=== PATIENT | male | born 1965 | race Caucasian/White ===

== ENCOUNTER 2017-06-30 14:30 | Inpatient (IN) | payer BC ==
[2017-06-30] MEDS ORDERED: HEPARIN SOD (PORCINE) 1,000 UNIT/ML 10 ML VIAL IV ONE (15:25)
--- NOTE | 2017-06-30 15:30 | ER Document Report ---
ED General - General Chief Complaint: Leg Swelling Stated Complaint: LEG PAIN Time Seen by Provider: 06/30/17 15:21 Mode of Arrival: Ambulatory Information source: Patient Notes: This is a 51-year-old man with a history of hypertension and Graves' disease who presents to the emergency room with left lower extremity pain from groin to the knee posteriorly. Patient states he has had symptoms for the past 2 days. Patient received an outpatient ultrasound at the hospital today which showed an extensive DVT. Patient denies any chest pain. He denies any significant shortness of breath. Patient has 2 brothers without any history of DVT. 1 of the patient's brothers recently of leukemia. No known family history of DVT. Patient's states that the patient has been taking multiple car rides to [place] and [facility] because of her medical condition. Medications: Lisinopril, metoprolol, Augmentin, Allergies: None (intolerance to Percocet). TRAVEL OUTSIDE OF THE [place] IN LAST 30 DAYS: No - HPI Onset: Last week Onset/Duration: Gradual Quality of pain: Dull Severity: Moderate Pain Level: 3 Associated symptoms: denies: Chest pain, Fever, Shortness of breath Exacerbated by: Denies Relieved by: Denies Similar symptoms previously: No Recently seen / treated by doctor: No - Related Data Allergies/Adverse Reactions: acetaminophen [From Percocet] Adverse Reaction (Verified 06/30/17 14:31) oxycodone [From Percocet] Adverse Reaction (Verified 06/30/17 14:31) Past Medical History - General Information source: Patient - Social History Smoking Status: Never Smoker Cigarette use (# per day): No Chew tobacco use (# tins/day): No Frequency of alcohol use: Rare Drug Abuse: None Lives with: Family Family History: None Patient has suicidal ideation: No Patient has homicidal ideation: No - Past Medical History Cardiac Medical History: Reports: Hx Hypertension Pulmonary Medical History: Reports: None EENT Medical History: Reports: None Neurological Medical History: Reports: None Endocrine Medical History: Reports: Hx Hyperthyroidism Renal/ Medical History: Reports: None. Denies: Hx Peritoneal Dialysis Malignancy Medical History: Reports None GI Medical History: Reports: None Musculoskeltal Medical History: Reports None Skin Medical History: Reports None Psychiatric Medical History: Reports: None Traumatic Medical History: Reports: None Infectious Medical History: Reports: None Past Surgical History: Reports: Hx Orthopedic Surgery - 2016 Review of Systems - Review of Systems Constitutional: denies: Chills, Fever EENT: No symptoms reported Cardiovascular: No symptoms reported Respiratory: See HPI Gastrointestinal: No symptoms reported Genitourinary: No symptoms reported Male Genitourinary: No symptoms reported Musculoskeletal: See HPI Skin: No symptoms reported Hematologic/Lymphatic: No symptoms reported Neurological/Psychological: No symptoms reported Physical Exam - Vital signs Vitals: Temp Pulse Resp BP Pulse Ox 98.2 F 102 H 18 126/78 H 97 06/30/17 14:41 06/30/17 14:41 06/30/17 14:41 06/30/17 14:41 06/30/17 14:41 Notes: Physical exam: GENERAL: 51-year-old man, no acute distress HEAD: Atraumatic, normocephalic. EYES: Pupils equal round and reactive to light, extraocular movements intact, sclera anicteric, conjunctiva are normal. ENT: TMs normal, nares patent, oropharynx clear without exudates. Moist mucous membranes. NECK: Normal range of motion, supple without obvious mass or JVD. LUNGS: Breath sounds clear to auscultation bilaterally and equal. No wheezes rales or rhonchi. HEART: Regular rate and rhythm without murmurs, rubs or gallops. ABDOMEN: Soft, normoactive bowel sounds. No tenderness to palpation. No guarding, no rebound. No masses appreciated. EXTREMITIES: Tenderness to the left lower extremity from the groin to the popliteal region. Patient does have bilateral dorsal pedal pulses with good cap refill. NEUROLOGICAL: Cranial nerves II through XII grossly intact. Normal speech, moving all extremities. PSYCH: Normal mood, normal affect. SKIN: Warm, Dry, normal turgor, no rashes or lesions noted. Course - Re-evaluation Re-evalutation: 06/30/17 18:44 I discussed the results of the ultrasound with Dr. Kya Johnson: Extensive DVT which goes from the popliteal to the femoral vein. CTA of the chest, abdomen and pelvis was performed. There is bilateral PEs. There is no evidence of a saddle embolus. There is no evidence that the distal DVT extends into the iliofemoral VEIN. The patient is continued on IV heparin. I had spoken to Dr. Mccray (vascular surgery) at [facility] to see if he is a candidate for catheter derived lytics. Based upon the patient's labs, stable vital signs, and x-ray reports, Dr. Mccray had recommended continued IV heparin. He did recommend discussing the case with the dry cleaning machine operator helper. The films were pushed to [facility]. I did discuss the case with the dry cleaning machine operator helper at [facility] (Dr West) who agreed with Dr. Mccray (primarily IV heparin at this time). I discussed case with Dr. Parry who will admit patient to the [facility] with continued IV heparin. 06/30/17 18:51 - Vital Signs Vital signs: Temp Pulse Resp BP Pulse Ox 98.8 F 90 22 H 140/86 H 98 06/30/17 19:46 06/30/17 19:46 06/30/17 19:46 06/30/17 19:46 06/30/17 19:46 - Laboratory Result Diagrams: 06/30/17 21:50 06/30/17 15:35 Laboratory results interpreted by me: 06/30/17 06/30/17 15:35 15:35 WBC 12.2 H RDW 14.5 H Lymphocytes % 12.1 L Absolute Neutrophils 9.5 H Glucose 125 H Creatine Kinase 42 L - Diagnostic Test Radiology reviewed: Image reviewed, Reports reviewed - CTA shows bilateral pulmonary emboli, lower extremity Doppler shows left-sided DVT from the femoral to the popliteal - EKG Interpretation by Me Rate: Normal - EKG shows normal sinus rhythm with a ventricular rate of 94, left axis deviation, poor R-wave progression, no acute ST-T wave changes Critical Care Note - Critical Care Note Total time excluding time spent on procedures (mins): 60 Discharge - Discharge Clinical Impression: Bilateral pulmonary emboli, Left lower extremity DVT Condition: Stable Disposition: ADMITTED INPATIENT Admitting Provider: Hospitalist - Dr. Steinberg Unit Admitted: [facility]
[2017-06-30 15:46] LABS: ABSOLUTE BASOPHILS # (AUTO) 0.1 10^3/uL (0.0-0.2); ABSOLUTE EOSINOPHILS # (AUTO) 0.2 10^3/uL (0.0-0.6); ABSOLUTE LYMPHOCYTES (AUTO) 1.5 10^3/uL (0.5-4.7); ABSOLUTE NEUT (AUTO) 9.5 10^3/uL (1.7-8.2); BASOPHILS % (AUTO) 0.7 % (0-2); EOSINOPHILS % (AUTO) 1.2 % (0-6); HEMATOCRIT 46.4 % (37.9-51.0); HEMOGLOBIN 15.9 g/dL (13.5-17.0); LYMPHOCYTES % (AUTO) 12.1 % (13-45); MEAN CORPUSCULAR HEMOGLOBIN 29.5 pg (27.0-33.4); MEAN CORPUSCULAR HGB CONC 34.2 g/dL (32.0-36.0); MEAN CORPUSCULAR VOLUME 86 fl (80-97); MONOCYTES % (AUTO) 8.5 % (3-13); PLATELET COUNT 227 10^3/uL (150-450); RED BLOOD COUNT 5.38 10^6/uL (4.35-5.55); RED CELL DISTRIBUTION WIDTH 14.5 % (11.5-14.0); SEGMENTED NEUTROPHILS % (AUTO) 77.5 % (42-78); TOTAL CELLS COUNTED % (AUTO) 100 %; WHITE BLOOD COUNT 12.2 10^3/uL (4.0-10.5)
[2017-06-30 16:09] LABS: ALANINE AMINOTRANSFERASE 34 U/L (21-72); ALBUMIN 4.6 g/dL (3.5-5.0); ALKALINE PHOSPHATASE 112 U/L (38-126); ANION GAP 11 (5-19); ASPARTATE AMINO TRANSFERASE 33 U/L (17-59); BILIRUBIN,DIRECT 0.3 mg/dL (0.0-0.4); BILIRUBIN,TOTAL 0.5 mg/dL (0.2-1.3); BLOOD UREA NITROGEN 16 mg/dL (7-20); CARBON DIOXIDE 27 mmol/L (22-30); CHLORIDE 102 mmol/L (98-107); CREATINE KINASE 42 U/L (55-170); GLUCOSE 125 mg/dL (75-110); POTASSIUM 4.4 mmol/L (3.6-5.0); SODIUM 140.3 mmol/L (137-145); TOTAL PROTEIN 7.9 g/dL (6.3-8.2)
[2017-06-30] MEDS: HEPARIN SODIUM,PORCINE/D5W 25,000 UNIT/250 ML RTUINJ IV PRN (16:20)
[2017-06-30 16:21] LABS: CREATINE KINASE MB 0.29 ng/mL (<4.55)
[2017-06-30 16:23] LABS: TROPONIN I < 0.012 ng/mL
--- NOTE | 2017-06-30 17:29 | RADIOLOGY REPORT (SQ) ---
EXAM DESCRIPTION: CTA CHEST; CTA ABDOMEN; CTA PELVIS COMPLETED DATE/TIME: 06/30/2017 5:06 pm REASON FOR STUDY: extensive DVT fem to pop on left COMPARISON: None. CONTRAST TYPE AND DOSE: contrast/concentration: Isovue 370.00 mg/ml; Total Contrast Delivered: 100.0 ml; Total Saline Delivered: 55.1 ml RENAL FUNCTION: Creatinine 1.1 TECHNIQUE: CT scan of the chest performed using helical scanning technique with dynamic intravenous contrast injection. Images reviewed with lung, soft tissue and bone windows. Reconstructed coronal a nd sagittal MPR images reviewed of the aorta and pulmonary arteries. All images stored on PACS. CT scan of the abdomen and pelvis performed with intravenous contrastusing helical scanning technique with dynamic intravenous contrast injection. Images reviewed with lung, soft tissue and bone window s. Reconstructed coronal and sagittal MPR images reviewed. Maximum intensity projected images of th e abdominal aorta were generated. Delayed images for evaluation of the urinary system also acquired and evaluated. All images stored on PACS. All CT scanners at this facility use dose modulation, iterative reconstruction, and/or weight based d osing when appropriate to reduce radiation dose to as low as reasonably achievable (ALARA). [facility]: Dose Right [facility]: CareDose [facility]: Dose Right [facility]: Teradose 4D [facility]: [employer] Technologies RADIATION DOSE: CT Rad equipment meets quality standard of care and radiation dose reduction techniq ues were employed. CTDIvol: 11.3 - 22.4 mGy. DLP: 2698 mGy-cm. . LIMITATIONS: None. FINDINGS: CHEST: LUNGS AND PLEURA: No opacities, nodules, masses. No pneumothorax. No effusions. PULMONARY ARTERIES: There is a pulmonary embolus in the distal right main pulmonary artery extending into the right middle and lower lobe segmental pulmonary arteries, nearly occlusive. On the left side, a moderate-sized distal left pulmonary artery embolus is present with scattered emb jong to the left upper lobe and left lower lobe. HILAR AND MEDIASTINAL STRUCTURES: No identified masses or abnormal nodes. HEART AND VASCULAR STRUCTURES: No aneurysm or dissection. No pericardial effusion. HARDWARE: None. THYROID AND OTHER SOFT TISSUES: No masses. No adenopathy. BONES: No significant finding. OTHER: Small hiatal hernia ABDOMEN AND PELVIS: LIVER: Normal size. No masses. No dilated ducts. SPLEEN: Normal size. No focal lesions. PANCREAS: No masses. No significant calcifications. No adjacent inflammation or peripancreatic fluid collections. Pancreatic duct not dilated. GALLBLADDER: No identified stones by CT criteria. No inflammatory changes to suggest cholecystitis. ADRENAL GLANDS: No significant masses or asymmetry. RIGHT KIDNEY AND URETER: No solid masses. No significant calcification. No hydronephrosis or hydroure ter. LEFT KIDNEY AND URETER: No solid masses. No significant calcification. No hydronephrosis or hydrouret er. AORTA AND VESSELS: No aneurysm. No dissection. Renal arteries, SMA, celiac without stenosis. RETROPERITONEUM: No retroperitoneal adenopathy, hemorrhage or masses. BOWEL AND PERITONEAL CAVITY: No masses or inflammatory changes. No free fluid or peritoneal masses. APPENDIX: Not identified ABDOMINAL WALL: No masses. No hernias. PELVIS: No mass or free fluid. Normal bladder. BONES: No significant or acute findings. OTHER: No other significant finding. IMPRESSION: Bilateral pulmonary emboli right greater than left No CT angio evidence of thoracic or abdominal aortic dissection or aneurysm. COMMENT: Pertinent findings on the imaging study reported as a CRITICAL RESULT to JOHANNA MOMIN MD at17:20 on 06/30/2017. Category of Critical Result: Acute bilateral pulmonary emboli TECHNICAL DOCUMENTATION: JOB ID: [id number] Quality ID # [id number]: Final reports with documentation of one or more dose reduction techniques (e.g., Au tomated exposure control, adjustment of the mA and/or kV according to patient size, use of iterative reconstruction technique) 2010 [employer]- All Rights Reserved
[2017-06-30] MEDS ORDERED: ONDANSETRON HCL INJ/PF 4 MG/2 ML SDV IV ONE (18:01)
[2017-06-30] MEDS ORDERED: HYDROMORPHONE HCL INJ/PF 2 MG/ML AMPULE IV ONE (18:10)
[2017-06-30] MEDS ORDERED: HEPARIN SOD (PORCINE) 1,000 UNIT/ML 10 ML VIAL IV PRN (18:26)
[2017-06-30] MEDS ORDERED: MAGNESIUM HYDROXIDE SUSP 30 ML UDCUP PO PRN (19:43)
[2017-06-30 20:58] LABS: INTERNATIONAL RATION (INR) 0.92; PROTHROMBIN TIME 13.1 SEC (11.4-15.4)
[2017-06-30] MEDS ORDERED: HYDROMORPHONE HCL 2 MG TABLET PO PRN (21:16)
[2017-06-30] MEDS ORDERED: HYDROMORPHONE HCL 2 MG TABLET PO ONE ×2 (21:16→23:45)
--- NOTE | 2017-06-30 21:55 | PDOC H&P ---
History of Present Illness Admission Date/PCP: 06/30/17 18:39 EMILIA GREGORY Patient complains of: Left leg pain and shortness of breath. History of Present Illness: DOMINIQUE LEWIS is a 51 year old male with a history of hypertension presenting with complaint of shortness of breath and left lower extremity swelling and pain. Patient states on Monday he was bite by a spider on his right arm. Patient thought that the swelling that occurred in his legs was due to a spider bite. Patient states he has swelling in both legs however the left leg was hurting him more. Patient states he woke up this morning and could not walk. Patient also noted that he has been feeling short of breath with walking. Patient states that he has been taking [address] [facility] a few times a week. Patient was found to have bilateral PE and a DVT in the left lower extremity. Patient is satting well on room air. Patient was started on a heparin GTT in the ED. Hospitalist was called to admit patient for PE and DVT. Past Medical History Cardiac Medical History: Reports: Hypertension Pulmonary Medical History: Reports: None EENT Medical History: Reports: None Neurological Medical History: Reports: None Endocrine Medical History: Reports: Hyperthyroidism Renal/ Medical History: Reports: None Malignancy Medical History: Reports: None GI Medical History: Reports: None Musculoskeltal Medical History: Reports: None Skin Medical History: Reports: None Psychiatric Medical History: Reports: None Traumatic Medical History: Reports: None Infectious Medical History: Reports: None Past Surgical History Past Surgical History: Reports: Orthopedic Surgery - 2016 Social History Lives with: Family Smoking Status: Never Smoker - Advance Directive Resuscitation Status: Full Code Family History Family History: Other - fibromyalgia Parental Family History Reviewed: No Children Family History Reviewed: No Sibling(s) Family History Reviewed.: No Medication/Allergy Home Medications: Cholecalciferol (Vitamin D3) [Vitamin D3 5000 unit Capsule] 4,000 units PO DAILY 06/30/17 Lisinopril 5 mg PO DAILY 06/30/17 Metoprolol Tartrate 5 mg PO DAILY 06/30/17 Allergies/Adverse Reactions: acetaminophen [From Percocet] Adverse Reaction (Verified 06/30/17 14:31) oxycodone [From Percocet] Adverse Reaction (Verified 06/30/17 14:31) Review of Systems Constitutional: PRESENT: weight gain. ABSENT: chills, fever(s), headache(s), weight loss Eyes: ABSENT: visual disturbances Ears: ABSENT: hearing changes Cardiovascular: PRESENT: edema. ABSENT: chest pain, dyspnea on exertion, orthropnea, palpitations Respiratory: PRESENT: dyspnea. ABSENT: cough, hemoptysis Gastrointestinal: ABSENT: abdominal pain, constipation, diarrhea, hematemesis, hematochezia, nausea, vomiting Genitourinary: ABSENT: dysuria, hematuria Integumentary: ABSENT: rash, wounds Neurological: ABSENT: abnormal gait, abnormal speech, confusion, dizziness, focal weakness, syncope Psychiatric: ABSENT: anxiety, depression, homidical ideation, suicidal ideation Endocrine: ABSENT: cold intolerance, heat intolerance, polydipsia, polyuria Hematologic/Lymphatic: ABSENT: easy bleeding, easy bruising Physical Exam Vital Signs: Temp Pulse Resp BP Pulse Ox 98.8 F 90 22 H 140/86 H 98 06/30/17 19:46 06/30/17 19:46 06/30/17 19:46 06/30/17 19:46 06/30/17 19:46 General appearance: PRESENT: no acute distress, well-developed, well-nourished Head exam: PRESENT: atraumatic, normocephalic Eye exam: PRESENT: conjunctiva pink, EOMI, PERRLA. ABSENT: scleral icterus Ear exam: PRESENT: normal external ear exam Mouth exam: PRESENT: moist, tongue midline Neck exam: ABSENT: carotid bruit, JVD, lymphadenopathy, thyromegaly Respiratory exam: PRESENT: clear to auscultation nash. ABSENT: rales, rhonchi, wheezes Cardiovascular exam: PRESENT: RRR, other - left lower exteremity swelling and pain and tenderness. ABSENT: diastolic murmur, rubs, systolic murmur Pulses: PRESENT: normal dorsalis pedis pul Vascular exam: PRESENT: normal capillary refill GI/Abdominal exam: PRESENT: normal bowel sounds, soft. ABSENT: distended, guarding, mass, organolmegaly, rebound, tenderness Rectal exam: PRESENT: deferred Extremities exam: PRESENT: full ROM. ABSENT: calf tenderness, clubbing, pedal edema Neurological exam: PRESENT: alert, awake, oriented to person, oriented to place , oriented to time, oriented to situation, CN II-XII grossly intact. ABSENT: motor sensory deficit Psychiatric exam: PRESENT: appropriate affect, normal mood. ABSENT: homicidal ideation, suicidal ideation Skin exam: PRESENT: dry, intact, warm. ABSENT: cyanosis, rash Results Laboratory Results: 06/30/17 06/30/17 06/30/17 15:35 15:35 15:35 WBC 12.2 H RBC 5.38 Hgb 15.9 Hct 46.4 MCV 86 MCH 29.5 MCHC 34.2 RDW 14.5 H Plt Count 227 Seg Neutrophils % 77.5 Lymphocytes % 12.1 L Monocytes % 8.5 Eosinophils % 1.2 Basophils % 0.7 Absolute Neutrophils 9.5 H Absolute Lymphocytes 1.5 Absolute Monocytes 1.0 Absolute Eosinophils 0.2 Absolute Basophils 0.1 PT 13.1 INR 0.92 Sodium 140.3 Potassium 4.4 Chloride 102 Carbon Dioxide 27 Anion Gap 11 BUN 16 Creatinine 1.14 Est GFR ( Amer) > 60 Est GFR (Non-Af Amer) > 60 Glucose 125 H Calcium 10.0 Total Bilirubin 0.5 Neonat Total Bilirubin Not Reportable AST 33 ALT 34 Alkaline Phosphatase 112 Creatine Kinase 42 L CK-MB (CK-2) Troponin I NT-Pro-B Natriuret Pep Total Protein 7.9 Albumin 4.6 06/30/17 06/30/17 15:35 15:35 WBC RBC Hgb Hct MCV MCH MCHC RDW Plt Count Seg Neutrophils % Lymphocytes % Monocytes % Eosinophils % Basophils % Absolute Neutrophils Absolute Lymphocytes Absolute Monocytes Absolute Eosinophils Absolute Basophils PT INR Sodium Potassium Chloride Carbon Dioxide Anion Gap BUN Creatinine Est GFR ( Amer) Est GFR (Non-Af Amer) Glucose Calcium Total Bilirubin Neonat Total Bilirubin AST ALT Alkaline Phosphatase Creatine Kinase CK-MB (CK-2) 0.29 Troponin I < 0.012 NT-Pro-B Natriuret Pep < 11 Total Protein Albumin Impressions: Chest/Abdomen CTA 06/30/17 16:32 IMPRESSION: Bilateral pulmonary emboli right greater than left No CT angio evidence of thoracic or abdominal aortic dissection or aneurysm. Pelvis CTA 06/30/17 16:32 IMPRESSION: Bilateral pulmonary emboli right greater than left No CT angio evidence of thoracic or abdominal aortic dissection or aneurysm. Assessment & Plan - Diagnosis (1) Pulmonary embolism Qualifiers: Chronicity: acute Is this a current diagnosis for this admission?: Yes Plan: With bilateral PE. Most likely secondary to the DVTs patient developed on long car rides back and forth to [facility] twice a week with his for cancer treatment. Currently on heparin GTT. Patient is interested in either Eliquis or Xarelto for anticoagulation on discharge. Patient without hypoxia. Patient denies any pleuritic chest pain. Patient does not appear to have heavy clot burden as his troponin is not elevated and BNP <11. Will check echo. (2) DVT (deep venous thrombosis) Qualifiers: DVT location: lower extremity Laterality: left Is this a current diagnosis for this admission?: Yes Plan: Patient with DVT in the left femoral vein to popliteal vein. As previously stated this is due to 6 Hour Round Trip to [facility]. Patient is doing this about twice a week. Patient currently on heparin GTT. Patient is on as needed pain medication as the area is swollen and tender. Patient interested in either Eliquis or Xarelto for 4-6 months of treatment. (3) Hypertension Qualifiers: Hypertension type: essential hypertension Qualified Code(s): I10 - Essential (primary) hypertension Is this a current diagnosis for this admission?: Yes Plan: Continue home medications. (4) Fatigue Is this a current diagnosis for this admission?: Yes Plan: Complains of feeling fatigued over the last several months. However this could be due to his weight gain. Patient has gone from 187-233 over the last year. Will check thyroid studies, B12, folate, thiamine, vitamin D, hemoglobin A1c. Patient does not follow up with the regular doctor and should probably do so. (5) Spider bite Is this a current diagnosis for this admission?: Yes Plan: Patient claims to have been bitten by a spider. There is a small vanessa on his right forearm however if this was a poisonous spider patient would have been extremely ill considering that this happened on Monday and it is now Monday. Continue to monitor. - Time Time Spent: 30 to 50 Minutes Anticipated discharge: Home Within: within 48 hours - Inpatient Certification Medical Necessity: Need for Pain Control - Patient on IV heparin., Other - Patient
[2017-06-30 21:58] LABS: ABSOLUTE BASOPHILS # (AUTO) 0.1 10^3/uL (0.0-0.2); ABSOLUTE EOSINOPHILS # (AUTO) 0.2 10^3/uL (0.0-0.6); ABSOLUTE LYMPHOCYTES (AUTO) 1.6 10^3/uL (0.5-4.7); ABSOLUTE MONOCYTES (AUTO) 1.2 10^3/uL (0.1-1.4); ABSOLUTE NEUT (AUTO) 10.1 10^3/uL (1.7-8.2); BASOPHILS % (AUTO) 0.4 % (0-2); EOSINOPHILS % (AUTO) 1.1 % (0-6); HEMATOCRIT 46.4 % (37.9-51.0); HEMOGLOBIN 15.8 g/dL (13.5-17.0); LYMPHOCYTES % (AUTO) 12.5 % (13-45); MEAN CORPUSCULAR HEMOGLOBIN 29.5 pg (27.0-33.4); MEAN CORPUSCULAR HGB CONC 34.1 g/dL (32.0-36.0); MEAN CORPUSCULAR VOLUME 87 fl (80-97); MONOCYTES % (AUTO) 9.1 % (3-13); PLATELET COUNT 217 10^3/uL (150-450); RED BLOOD COUNT 5.37 10^6/uL (4.35-5.55); RED CELL DISTRIBUTION WIDTH 14.3 % (11.5-14.0); SEGMENTED NEUTROPHILS % (AUTO) 76.9 % (42-78); TOTAL CELLS COUNTED % (AUTO) 100 %; WHITE BLOOD COUNT 13.2 10^3/uL (4.0-10.5)
[2017-06-30 22:05] LABS: INTERNATIONAL RATION (INR) 0.94; PROTHROMBIN TIME 13.3 SEC (11.4-15.4)
--- NOTE | 2017-06-30 22:10 | EKG REPORT ---
SEVERITY:- BORDERLINE ECG - SINUS RHYTHM BORDERLINE LEFT AXIS DEVIATION CONSIDER ANTERIOR INFARCT : Confirmed by: Jose Cadena 30-Jun-2017 22:09:56
[2017-06-30] MEDS ORDERED: METHIMAZOLE 5 MG TABLET PO ONE (23:00)
[2017-06-30] MEDS ORDERED: HYDROXYZINE HCL 10 MG TABLET PO PRN (23:23)
[2017-06-30] MEDS ORDERED: CHOLECALCIFEROL (D3) 1,000 UNIT TABLET PO ONE (23:45)
[2017-06-30] MEDS ORDERED: HYDROXYZINE HCL 10 MG TABLET PO ONE (23:45)
[2017-06-30] MEDS ORDERED: AMOXICILLIN TR/POT CLAVULANATE 500-125 MG TAB PO ONE (23:45)
[2017-06-30] MEDS ORDERED: LISINOPRIL 10 MG TABLET PO ONE (23:45)
[2017-07-01] MEDS: HYDROMORPHONE HCL 2 MG TABLET PO PRN ×4 (00:05→23:38)
[2017-07-01] MEDS ORDERED: BACLOFEN 10 MG TABLET PO ONE (01:00)
[2017-07-01 01:27] LABS: INTERNATIONAL RATION (INR) 0.96
[2017-07-01 01:34] LABS: PROTHROMBIN TIME 13.5 SEC (11.4-15.4)
[2017-07-01 01:35] LABS: PARTIAL THROMBOPLASTIN TIME 85.6 SEC (23.5-35.8)
[2017-07-01] MEDS: AMOXICILLIN TR/POT CLAVULANATE 500-125 MG TAB PO SCH ×3 (05:57→21:57)
[2017-07-01] MEDS: LANSOPRAZOLE 30 MG TAB.RAP.DR PO SCH (05:57)
[2017-07-01] MEDS: HEPARIN SODIUM,PORCINE/D5W 25,000 UNIT/250 ML RTUINJ IV PRN (06:42)
[2017-07-01 06:48] LABS: INTERNATIONAL RATION (INR) 0.94; PROTHROMBIN TIME 13.3 SEC (11.4-15.4); URIC ACID 6.5 mg/dL (3.5-8.5)
[2017-07-01 06:50] LABS: PARTIAL THROMBOPLASTIN TIME 101.7 SEC (23.5-35.8)
[2017-07-01 07:08] LABS: FREE T3 3.57 pg/mL (2.77-5.27); FREE T4 (FREE THYROXINE) 1.12 ng/dL (0.78-2.19)
[2017-07-01 07:22] LABS: THYROID STIMULATING HORMONE 1.45 uIU/mL (0.47-4.68)
[2017-07-01 08:03] LABS: FOLATE 5.2 ng/mL (>2.76)
[2017-07-01] MEDS: DOCUSATE SODIUM 100 MG CAPSULE PO SCH (09:49)
[2017-07-01] MEDS: BACLOFEN 10 MG TABLET PO SCH ×2 (09:49→17:45)
[2017-07-01] MEDS ORDERED: METOPROLOL TARTRATE 25 MG TABLET PO SCH ×2 (10:00)
[2017-07-01] MEDS ORDERED: CHOLECALCIFEROL PO SCH (10:00)
[2017-07-01] MEDS ORDERED: LISINOPRIL 5 MG TABLET PO SCH (10:00)
[2017-07-01] MEDS ORDERED: CHOLECALCIFEROL (D3) 1,000 UNIT TABLET PO SCH (10:00)
[2017-07-01] MEDS ORDERED: [UNRECOGNIZED DRUG - OTHER] PO SCH (10:00)
[2017-07-01] MEDS ORDERED: ENOXAPARIN SODIUM INJ 100 MG/1 ML DISP.SYRIN SUBCUT ONE (15:30)
--- NOTE | 2017-07-01 16:10 | PDOC PROGRESS REPORT ---
Subjective Progress Note for:: 07/01/17 Subjective:: 51-year-old gentleman with a past history of hypertension and Graves' disease presented to the emergency room on June 30 with sudden onset shortness of breath and left lower extremity swelling and pain. 2 days ago he was bitten by a spider in his right arm. He then developed bilateral leg swelling which he attributed to the spider bite however the left leg was hurting him more he woke up on the day of admission in the morning and was unable to walk and was also feeling short of breath. The patient has been driving to [place] a few times every week. In the emergency room he was found to have deep vein thrombosis of the left lower extremity and bilateral pulmonary emboli and was started on a heparin drip in the emergency room. Echo cardiogram has been ordered. No complaints at present. Reason For Visit: PE AND DVT Physical Exam Vital Signs: Temp Pulse Resp BP Pulse Ox 98.0 F 78 20 132/78 H 97 07/01/17 07:22 07/01/17 07:22 07/01/17 07:22 07/01/17 07:22 07/01/17 07:22 Intake & Output 06/30/17 07/01/17 07/02/17 06:59 06:59 06:59 Intake Total 558 Balance 558 Weight 102.8 kg 102.2 kg Additional comments: Middle-aged gentleman sitting up in bed eating his lunch not in acute distress Lungs: Clear to auscultation bilaterally normal respiratory effort Cardiac: S1-S2 regular no murmurs heard no peripheral edema no cyanosis no thrills palpable. Abdomen: Soft, no focal tenderness normal bowel sounds Skin: Warm and dry next Results Laboratory Results: 06/30/17 21:50 06/30/17 07/01/17 07/01/17 21:50 06:19 06:19 WBC 13.2 H RBC 5.37 Hgb 15.8 Hct 46.4 MCV 87 MCH 29.5 MCHC 34.1 RDW 14.3 H Plt Count 217 Seg Neutrophils % 76.9 Lymphocytes % 12.5 L Monocytes % 9.1 Eosinophils % 1.1 Basophils % 0.4 Absolute Neutrophils 10.1 H Absolute Lymphocytes 1.6 Absolute Monocytes 1.2 Absolute Eosinophils 0.2 Absolute Basophils 0.1 Uric Acid 6.5 Vitamin B12 323.0 Folate 5.20 TSH 1.45 Free T4 1.12 Free T3 pg/mL 3.57 Impressions: Chest/Abdomen CTA 06/30/17 16:32 IMPRESSION: Bilateral pulmonary emboli right greater than left No CT angio evidence of thoracic or abdominal aortic dissection or aneurysm. Pelvis CTA 06/30/17 16:32 IMPRESSION: Bilateral pulmonary emboli right greater than left No CT angio evidence of thoracic or abdominal aortic dissection or aneurysm. Assessment & Plan - Diagnosis (1) Pulmonary embolism Qualifiers: Chronicity: acute Is this a current diagnosis for this admission?: Yes Plan: Anticoagulation. Echocardiogram ordered. Heparin drip switched to Lovenox per (2) DVT (deep venous thrombosis) Qualifiers: DVT location: lower extremity Laterality: left Is this a current diagnosis for this admission?: Yes Plan: Will stop heparin drip and start him on Lovenox followed by an oral anticoagulant (3) Graves disease Is this a current diagnosis for this admission?: Yes Plan: TSH is normal. Continue methimazole (4) Hypertension Qualifiers: Hypertension type: essential hypertension Qualified Code(s): I10 - Essential (primary) hypertension Is this a current diagnosis for this admission?: Yes Plan: On lisinopril (5) Spider bite Is this a current diagnosis for this admission?: Yes Plan: He was started on Augmentin on June 29. Today is day 3. It will be continued for a total of 7 days. - Time Time Spent with patient: 35 or more minutes
[2017-07-01] MEDS ORDERED: ENOXAPARIN SODIUM INJ 100 MG/1 ML DISP.SYRIN SUBCUT SCH (18:00)
[2017-07-01] MEDS: LISINOPRIL 10 MG TABLET PO SCH (21:57)
[2017-07-01] MEDS: CHOLECALCIFEROL (D3) 1,000 UNIT TABLET PO SCH (21:57)
[2017-07-01] MEDS: ENOXAPARIN SODIUM INJ 100 MG/1 ML DISP.SYRIN SUBCUT SCH (21:57)
[2017-07-01] MEDS: METHIMAZOLE 5 MG TABLET PO SCH (21:57)
[2017-07-02] MEDS: ONDANSETRON HCL INJ/PF 4 MG/2 ML SDV IV PRN ×2 (00:34→05:40)
[2017-07-02] MEDS: LANSOPRAZOLE 30 MG TAB.RAP.DR PO SCH (05:37)
[2017-07-02] MEDS: AMOXICILLIN TR/POT CLAVULANATE 500-125 MG TAB PO SCH ×3 (05:38→21:34)
[2017-07-02] MEDS: HYDROMORPHONE HCL 2 MG TABLET PO PRN ×2 (05:40→12:43)
[2017-07-02] MEDS: DOCUSATE SODIUM 100 MG CAPSULE PO SCH (09:08)
[2017-07-02] MEDS: ENOXAPARIN SODIUM INJ 100 MG/1 ML DISP.SYRIN SUBCUT SCH ×2 (09:08→21:34)
[2017-07-02] MEDS: BACLOFEN 10 MG TABLET PO SCH ×2 (09:08→18:43)
--- NOTE | 2017-07-02 09:09 | EKG REPORT ---
SEVERITY:- BORDERLINE ECG - SINUS RHYTHM BORDERLINE LEFT AXIS DEVIATION CONSIDER ANTERIOR INFARCT : Confirmed by: Jose Cadena 02-Jul-2017 09:09:42
--- NOTE | 2017-07-02 11:15 | PDOC PROGRESS REPORT ---
Subjective Progress Note for:: 07/02/17 Subjective:: 51-year-old gentleman with a past history of hypertension and Graves' disease presented to the emergency room on June 30 with sudden onset shortness of breath and left lower extremity swelling and pain. 2 days ago he was bitten by a spider in his right arm. He then developed bilateral leg swelling which he attributed to the spider bite however the left leg was hurting him more he woke up on the day of admission in the morning and was unable to walk and was also feeling short of breath. The patient has been driving to [employer] a few times every week. In the emergency room he was found to have deep vein thrombosis of the left lower extremity and bilateral pulmonary emboli and was started on a heparin drip in the emergency room. Echo cardiogram has been ordered. No complaints at present. Echocardiogram pending. Reason For Visit: PE AND DVT Physical Exam Vital Signs: Temp Pulse Resp BP Pulse Ox 98.3 F 77 18 104/59 L 95 07/02/17 07:39 07/02/17 07:39 07/02/17 07:39 07/02/17 07:39 07/02/17 07:39 Intake & Output 07/01/17 07/02/17 07/03/17 06:59 06:59 06:59 Intake Total 558 232 Output Total 0 Balance 558 232 Weight 102.8 kg 103.4 kg Additional comments: Middle-aged gentleman sitting up in bed eating his lunch not in acute distress Lungs: Clear to auscultation bilaterally normal respiratory effort Cardiac: S1-S2 regular no murmurs heard no peripheral edema no cyanosis no thrills palpable. Abdomen: Soft, no focal tenderness normal bowel sounds Skin: Warm and dry, small 0.5cm papular erythematous lesion on R forearm- well healed, no discharge or purulence Results Laboratory Results: 06/30/17 21:50 Impressions: Chest/Abdomen CTA 06/30/17 16:32 IMPRESSION: Bilateral pulmonary emboli right greater than left No CT angio evidence of thoracic or abdominal aortic dissection or aneurysm. Pelvis CTA 06/30/17 16:32 IMPRESSION: Bilateral pulmonary emboli right greater than left No CT angio evidence of thoracic or abdominal aortic dissection or aneurysm. Assessment & Plan - Diagnosis (1) Pulmonary embolism Qualifiers: Chronicity: acute Is this a current diagnosis for this admission?: Yes Plan: Continue anticoagulation. Echocardiogram ordered. Heparin drip switched to Lovenox. (2) DVT (deep venous thrombosis) Qualifiers: DVT location: lower extremity Laterality: left Is this a current diagnosis for this admission?: Yes Plan: Lovenox followed by an oral anticoagulant (3) Graves disease Is this a current diagnosis for this admission?: Yes Plan: TSH is normal. Continue methimazole. Outpatient endocrinology follow up (4) Hypertension Qualifiers: Hypertension type: essential hypertension Qualified Code(s): I10 - Essential (primary) hypertension Is this a current diagnosis for this admission?: Yes Plan: On lisinopril (5) Spider bite Is this a current diagnosis for this admission?: Yes Plan: He was started on Augmentin on June 29. Today is day 4. It will be continued for a total of 5 days. - Time Time Spent with patient: 25-34 minutes
[2017-07-02] MEDS ORDERED: BUTALB/ACETAMINOPHEN/CAFFEINE 1 TAB EACH PO ONE (16:00)
[2017-07-02] MEDS: METHIMAZOLE 5 MG TABLET PO SCH (21:34)
[2017-07-02] MEDS: LISINOPRIL 10 MG TABLET PO SCH (21:34)
[2017-07-02] MEDS: CHOLECALCIFEROL (D3) 1,000 UNIT TABLET PO SCH (21:35)
[2017-07-03] MEDS: AMOXICILLIN TR/POT CLAVULANATE 500-125 MG TAB PO SCH ×2 (05:33→14:49)
[2017-07-03] MEDS: LANSOPRAZOLE 30 MG TAB.RAP.DR PO SCH (05:33)
[2017-07-03 06:38] LABS: HEMATOCRIT 43.1 % (37.9-51.0); HEMOGLOBIN 14.6 g/dL (13.5-17.0); MEAN CORPUSCULAR HEMOGLOBIN 29.4 pg (27.0-33.4); MEAN CORPUSCULAR HGB CONC 33.9 g/dL (32.0-36.0); MEAN CORPUSCULAR VOLUME 87 fl (80-97); PLATELET COUNT 239 10^3/uL (150-450); RED BLOOD COUNT 4.95 10^6/uL (4.35-5.55); RED CELL DISTRIBUTION WIDTH 13.9 % (11.5-14.0); WHITE BLOOD COUNT 9.2 10^3/uL (4.0-10.5)
[2017-07-03] MEDS: HYDROMORPHONE HCL 2 MG TABLET PO PRN (08:06)
[2017-07-03] MEDS: DOCUSATE SODIUM 100 MG CAPSULE PO SCH (09:37)
[2017-07-03] MEDS: BACLOFEN 10 MG TABLET PO SCH (09:38)
[2017-07-03] MEDS: ENOXAPARIN SODIUM INJ 100 MG/1 ML DISP.SYRIN SUBCUT SCH (09:38)
[2017-07-03 09:40] LABS: VITAMIN B1 (THIAMINE) 204.1 nmol/L (66.5-200.0)
--- NOTE | 2017-07-03 10:16 | PDOC DISCHARGE SUMMARY ---
General - Admit/Disc Date/PCP Admission Date/Primary Care Provider: 06/30/17 18:39 EMILIA GREGORY Discharge Date: 07/03/17 - Discharge Diagnosis (1) DVT (deep venous thrombosis) Is this a current diagnosis for this admission?: Yes (2) Graves disease Is this a current diagnosis for this admission?: Yes (3) Hypertension Is this a current diagnosis for this admission?: Yes (4) Pulmonary embolism Is this a current diagnosis for this admission?: Yes (5) Spider bite Is this a current diagnosis for this admission?: Yes - Additional Information Resuscitation Status: Full Code Discharge Diet: As Tolerated Discharge Activity: Activity As Tolerated Prescriptions: Lisinopril [Prinivil 10 mg Tablet] 10 mg PO QHS #30 tablet Methimazole [Tapazole 5 mg Tablet] 5 mg PO QHS 30 Days #30 tablet Amox Tr/Potassium Clavulanate [Augmentin "500" Tablet] 1 tab PO Q8 #15 tablet Baclofen [Baclofen 10 mg Tablet] 10 mg PO BID #15 tablet Cyanocobalamin (Vitamin B-12) [Vitamin B12] 1,000 mcg PO DAILY #30 tablet Rivaroxaban [Xarelto] 20 mg PO DAILY 30 Days #30 tablet Rivaroxaban [Xarelto 15 mg Tablet] 15 mg PO BID #42 tablet Home Medications: Cholecalciferol (Vitamin D3) [Vitamin D3 5000 unit Capsule] 4,000 units PO DAILY 06/30/17 Amox Tr/Potassium Clavulanate [Augmentin "500" Tablet] 1 tab PO Q8 #15 tablet 07/03/17 Baclofen [Baclofen 10 mg Tablet] 10 mg PO BID #15 tablet 07/03/17 Cyanocobalamin (Vitamin B-12) [Vitamin B12] 1,000 mcg PO DAILY #30 tablet Lisinopril [Prinivil 10 mg Tablet] 10 mg PO QHS #30 tablet 07/03/17 Methimazole [Tapazole 5 mg Tablet] 5 mg PO QHS 30 Days #30 tablet 07/03/17 Rivaroxaban [Xarelto 15 mg Tablet] 15 mg PO BID #42 tablet 07/03/17 Rivaroxaban [Xarelto] 20 mg PO DAILY 30 Days #30 tablet 07/03/17 History of Present Illness Patient complains of: Pain left lower extremity. Spider bite History of Present Illness: DOMINIQUE LEWIS is a 51 year old male Presented to the ED complaining of pain in the left lower extremity Patient recently had a spider bite to the left arm Upon evaluation in the ED patient was diagnosed of DVT lower extremity and multiple pulmonary emboli He was subsequently admitted under hospitalist service for further care Hospital Course Hospital Course: 1 bilateral pulmonary emboli Patient was treated with Lovenox subcutaneously for 2 days. He did not have significant hypoxemia He remained in normal sinus rhythm He complained of some pleuritic chest pain Patient was switched to Xarelto at discharge 2 spider bite patient had skin lesion on the right forearm He was treated with Augmentin p.o. 3 hypertension Was controlled with lisinopril 10 mg daily 4 hyperthyroidism Patient was continued on methimazole His thyroid function was normal 4 vitamin B12 level was low at 300 Patient was discharged on vitamin B12 replacement Physical Exam Vital Signs: Temp Pulse Resp BP Pulse Ox 97.6 F 84 20 127/69 H 100 07/03/17 07:25 07/03/17 07:25 07/03/17 07:25 07/03/17 07:25 07/03/17 07:25 Intake & Output 07/02/17 07/03/17 07/04/17 00:59 00:59 00:59 Intake Total 458 486 155 Output Total 0 Balance 458 486 155 Weight 101.7 kg 103.4 kg 103.3 kg General appearance: PRESENT: no acute distress, well-developed, well-nourished Head exam: PRESENT: atraumatic, normocephalic Eye exam: PRESENT: conjunctiva pink, EOMI, PERRLA. ABSENT: scleral icterus Ear exam: PRESENT: normal external ear exam Mouth exam: PRESENT: moist, tongue midline Neck exam: ABSENT: carotid bruit, JVD, lymphadenopathy, thyromegaly Respiratory exam: PRESENT: clear to auscultation nash. ABSENT: rales, rhonchi, wheezes Cardiovascular exam: PRESENT: RRR. ABSENT: diastolic murmur, rubs, systolic murmur Pulses: PRESENT: normal dorsalis pedis pul Vascular exam: PRESENT: normal capillary refill GI/Abdominal exam: PRESENT: normal bowel sounds, soft. ABSENT: distended, guarding, mass, organolmegaly, rebound, tenderness Rectal exam: PRESENT: deferred Extremities exam: PRESENT: full ROM, other - Tender left calf mild swelling. ABSENT: calf tenderness, clubbing, pedal edema Neurological exam: PRESENT: alert, awake, oriented to person, oriented to place , oriented to time, oriented to situation, CN II-XII grossly intact. ABSENT: motor sensory deficit Psychiatric exam: PRESENT: appropriate affect, normal mood. ABSENT: homicidal ideation, suicidal ideation Skin exam: PRESENT: dry, intact, warm. ABSENT: cyanosis, rash Results Laboratory Results: 07/03/17 05:30 07/01/17 07/03/17 06:19 05:30 WBC 9.2 RBC 4.95 Hgb 14.6 Hct 43.1 MCV 87 MCH 29.4 MCHC 33.9 RDW 13.9 Plt Count 239 Vitamin B1 204.1 H Impressions: Chest/Abdomen CTA 06/30/17 16:32 IMPRESSION: Bilateral pulmonary emboli right greater than left No CT angio evidence of thoracic or abdominal aortic dissection or aneurysm. Pelvis CTA 06/30/17 16:32 IMPRESSION: Bilateral pulmonary emboli right greater than left No CT angio evidence of thoracic or abdominal aortic dissection or aneurysm. Plan Discharge Plan: Discharge patient home Follow-up with PMD and Dr. Barragan Hematology Time Spent: Greater than 30 Minutes
[2017-07-03 13:03] LABS: VITAMIN D 25-HYDROXY 19.9 ng/mL (30.0-100.0)
[2017-07-03 13:09] LABS: APPEARANCE,URINE CLEAR; BILIRUBIN,URINE NEGATIVE (NEGATIVE); COLOR,URINE YELLOW; GLUCOSE, URINE NEGATIVE (NEGATIVE); KETONES,URINE NEGATIVE (NEGATIVE); LEUKOCYTE ESTERASE,URINE NEGATIVE (NEGATIVE); NITRITE,URINE NEGATIVE (NEGATIVE); PROTEIN,URINE NEGATIVE (NEGATIVE); URINE SPECIFIC GRAVITY 1.021; UROBILINOGEN,URINE NEGATIVE mg/dL (<2.0)
[2017-07-03 16:15] VITALS: BP 110/58
--- NOTE | 2017-07-03 18:23 | XCELERA REPORT ---
[address] [address] Transthoracic Echocardiogram Report Name: DOMINIQUE LEWIS Age: 51 yrs Gender: Male : 1965 Patient Status: Inpatient Patient Location: [address] [place] [address] Study Date: 07/03/2017 03:31 PM Height: 71 in Weight: 233 lb BSA: 2.3 m2 Procedure: A complete two-dimensional transthoracic echocardiogram was performed (2D, M-mode, spectral and color flow Doppler). The study was technically adequate with some images being suboptimal in quality. Reason For Study: PE Ordering Physician: YARED JORGE Performed By: Aline Phillips Interpretation Summary The left ventricular ejection fraction is normal. Doppler measurements suggest pseudonormalized left ventricular relaxation, which is associated with grade II/IV or mild to moderate diastolic dysfunction There is borderline concentric left ventricular hypertrophy. The left ventricle is grossly normal size. Wall motion cannot be accurately commented on, but no definite regional wall motion abnormalities noted. The right ventricular systolic function is normal. The left atrial size is normal. The right atrium is normal in size There is a trace amount of mitral regurgitation There is no mitral valve stenosis. No aortic regurgitation is present. There is no aortic valve stenosis There is a trace or physiologic amount of tricuspid regurgitation Tricuspid regurgitation jet envelope not well defined to measure RV systolic pressure accurately. The aortic root is normal size. The inferior vena cava appeared normal and decreased > 50% with respiration (RAP 5-10 mmHg) There is no pericardial effusion. MMode/2D Measurements & Calculations RVDd: 2.7 cm LVIDd: 4.3 cm FS: 38.7 % Ao root diam: 2.3 cm IVSd: 0.89 cm LVIDs: 2.6 cm EDV(Teich): 82.9 ml LVPWd: 0.90 cm ESV(Teich): 25.4 ml Ao root area: 4.0 cm2 EF(Teich): 69.4 % LA dimension: 3.5 cm Doppler Measurements & Calculations MV E max adarsh: MV P1/2t max adarsh: Ao V2 max: LV V1 max P.8 cm/sec 57.3 cm/sec 143.3 cm/sec 6.3 mmHg MV A max adarsh: MV P1/2t: 64.4 msec Ao max PG: LV V1 max: 58.2 cm/sec 8.2 mmHg 125.9 cm/sec MV E/A: 0.92 MVA(P1/2t): 3.4 cm2 MV dec slope: 260.3 cm/sec2 MV dec time: 0.22 sec PA V2 max: TR max adarsh: 80.2 cm/sec 215.8 cm/sec PA max PG: TR max P.6 mmHg 2.6 mmHg Left Ventricle The left ventricle is grossly normal size. There is borderline concentric left ventricular hypertrophy. The left ventricular ejection fraction is normal. Doppler measurements suggest pseudonormalized left ventricular relaxation, which is associated with grade II/IV or mild to moderate diastolic dysfunction. Wall motion cannot be accurately commented on, but no definite regional wall motion abnormalities noted. Right Ventricle The right ventricle is grossly normal size. There is normal right ventricular wall thickness. The right ventricular systolic function is normal. Atria The right atrium is normal in size. The left atrial size is normal. Interarterial septum not well visualized and not well dopplered. Cannot comment on ASD/PFO presence. Mitral Valve The mitral valve is grossly normal. There is no mitral valve stenosis. There is a trace amount of mitral regurgitation. Aortic Valve The aortic valve is grossly normal. There is no aortic valve stenosis. No aortic regurgitation is present. Tricuspid Valve The tricuspid valve is not well visualized, but is grossly normal. There is no tricuspid stenosis. There is a trace or physiologic amount of tricuspid regurgitation. Tricuspid regurgitation jet envelope not well defined to measure RV systolic pressure accurately. Pulmonic Valve The pulmonic valve is not well visualized. Great Vessels The aortic root is normal size. The inferior vena cava appeared normal and decreased > 50% with respiration (RAP 5-10 mmHg). Effusions There is no pericardial effusion. : YARED JORGE > Jose Cadena
== END 2017-07-03 17:24 | disposition home or self-care (01) | DRG 300 ==
LOC: ER 14:30 → EH 18:39 → 3W 20:35
PROVIDERS: ADMIT Emergency Medicine; ATTEND Emergency Medicine
DX: I74.9 Embolism and thrombosis of unspecified artery (principal); I82.4Z2 Acute embolism and thrombosis of unspecified deep veins of left distal lower extremity; E05.00 Thyrotoxicosis with diffuse goiter without thyrotoxic crisis or storm; I10 Essential (primary) hypertension; S50.861A Insect bite (nonvenomous) of right forearm, initial encounter; W57.XXXA Bitten or stung by nonvenomous insect and other nonvenomous arthropods, initial encounter; E55.9 Vitamin D deficiency, unspecified; R63.5 Abnormal weight gain; Z68.31 Body mass index [BMI] 31.0-31.9, adult; Z79.899 Other long term (current) drug therapy; Z88.6 Allergy status to analgesic agent
CPT/HCPCS: 36415; 71275; 72191; 74175; 80053; 81001; 82306; 82550; 82553; 82607; 82652; 82746; 83036; 83880; 84425; 84439; 84443; 84481; 84484; 84550; 85025; 85027; 85610; 85730; 93005; 93010; 93306; 99291; J1170; J1644; J1650; J2405; J3490

== ENCOUNTER → 2017-06-30 | Outpatient (CLI) | payer BC ==
--- NOTE | 2017-06-30 16:05 | XCELERA REPORT ---
[address] [address] Lower Extremity Venous Evaluation Name: DOMINIQUE LEWIS Age: 51 yrs Gender: Male : 1965 Patient Status: Outpatient Patient Location: Study Date: 06/30/2017 01:42 PM Procedure: Color flow and duplex imaging bilaterally of the veins of the lower extremities as well as the Common Femoral veins. Reason For Study: BLE PAIN, SWELLING Ordering Physician: JEFFERSON CRUZ Performed By: Salome Tobias Right Sided Venous Evaluation Normal vessel filling wall to wall, compression and augmentation as well as Colour flow down to the infrageniculate veins. Left Sided Venous Evaluation Abnormal vessel filling , no compression or Colour flow from the Common Femoral vein to the Popliteal vein. Critical Findings Discussed with Dr Rosado in the ER. Interpretation Summary Extensive proximal DVT in the left Femoral system. Normal on right. : JEFFERSON CRUZ > Nolan Johnson
== END ==
LOC: SP 13:16
PROVIDERS: ATTEND Physician Assistant
DX: M79.662 Pain in left lower leg (principal); M79.661 Pain in right lower leg
CPT/HCPCS: 93970

== ENCOUNTER → 2017-07-10 | Outpatient (CLI) | payer BC ==
--- NOTE | 2017-07-10 19:10 | RADIOLOGY REPORT (SQ) ---
EXAM DESCRIPTION: CTA CHEST COMPLETED DATE/TIME: 07/10/2017 6:30 pm REASON FOR STUDY: DYSPNEA I26.99 OTHER PULMONARY EMBOLISM WITHOUT ACUTE COR PULMONALE COMPARISON: CT angio chest 06/30/2017 TECHNIQUE: CT scan of the chest performed using helical scanning technique with dynamic intravenous contrast injection. Images reviewed with lung, soft tissue and bone windows. Reconstructed coronal and sagittal MPR images reviewed. Additional 3 dimensional post-processing performed to develop Maximal Intensity Projection images (AK P). All images stored on PACS. All CT scanners at this facility use dose modulation, iterative reconstruction, and/or weight based d osing when appropriate to reduce radiation dose to as low as reasonably achievable (ALARA). [facility]: Dose Right [facility]: CareDose [facility]: Dose Right [facility]: Teradose 4D [facility]: Tuicool CONTRAST TYPE AND DOSE: contrast/concentration: Isovue 370.00 mg/ml; Total Contrast Delivered: 82.0 ml; Total Saline Delivered: 75.0 ml Contrast bolus optimized for the pulmonary arteries. Not diagnostic for the aorta. RENAL FUNCTION: Creatinine 1.4 RADIATION DOSE: CT Rad equipment meets quality standard of care and radiation dose reduction techniq ues were employed. CTDIvol: 16.5 - 23.3 mGy. DLP: 812 mGy-cm. . LIMITATIONS: None. FINDINGS: LUNGS AND PLEURA: No masses, infiltrates, pneumothorax. No pleural effusions, calcificati ons. AORTA AND GREAT VESSELS: No aneurysm. Contrast bolus not optimized for the aorta. HEART: No pericardial effusion. No significant coronary artery calcifications. PULMONARY ARTERIES: There is still a moderate amount of residual thrombus in the distal right main pu lmonary artery extending into the proximal right middle lobe pulmonary artery and right lower lobe se gmental pulmonary arteries. Small amount of residual clot in the right upper lobe proximal segmental pulmonary arteries. This is stable compared to 06/30/2017. There is a tiny amount of thrombus in the distal left main pulmonary artery extending into the left l ower lobe segmental pulmonary arteries. This is less prominent than on 06/30/2017. Left upper lobe pu lmonary embolus is resolved. HILAR AND MEDIASTINAL STRUCTURES: No identified masses or abnormal nodes. Small retrocardiac hiatal hernia HARDWARE: None in the chest. UPPER ABDOMEN: No significant findings. Limited exam. THYROID AND OTHER SOFT TISSUES: No masses. No adenopathy. BONES: No acute or significant finding. 3D MIPS: Confirm above findings. OTHER: Patient has been on Eliquis for 7 days. He is currently asymptomatic and in no acute distress . These findings were discussed with the patient and his , who both wanted him to go home. Bonnie ent was instructed to return to the emergency room if he has sudden onset of chest pain or sudden ons et of dyspnea. IMPRESSION: Moderate residual thrombus in the distal right main pulmonary artery extending into the proximal right upper, middle lobe and lower lobe segmental pulmonary arteries. This is stable compar ed to 06/30/2017 Small amount of thrombus in the distal left main pulmonary artery extending into the left lower lobe segmental pulmonary arteries. This is less prominent than on 06/30/2017 COMMENT: Quality ID # [id number]: Final reports with documentation of one or more dose reduction techniques (e.g., Automated exposure control, adjustment of the mA and/or kV according to patient size, use of iterative reconstruction technique) TECHNICAL DOCUMENTATION: JOB ID: [id number] [employer]- All Rights Reserved
== END ==
LOC: RAD 17:59
PROVIDERS: ATTEND Physician Assistant
DX: I26.99 Other pulmonary embolism without acute cor pulmonale (principal); R06.00 Dyspnea, unspecified; Z86.718 Personal history of other venous thrombosis and embolism
CPT/HCPCS: 71275

== ENCOUNTER → 2017-07-15 | Outpatient (CLI) | payer BC ==
--- NOTE | 2017-07-15 19:32 | RADIOLOGY REPORT (SQ) ---
EXAM DESCRIPTION: VENOUS BILATERAL LOWER COMPLETED DATE/TIME: 07/15/2017 7:19 pm REASON FOR STUDY: PAIN SWELLING H/O DVT LLE COMPARISON: 06/30/2017 TECHNIQUE: Dynamic and static merritt scale and color images acquired of both lower extremity venous sy stems. Selected spectral images acquired with additional compression and augmentation maneuvers. Imag es stored on PACS. LIMITATIONS: None. FINDINGS: RIGHT LEG COMMON FEMORAL AND FEMORAL: Normal phasicity, compression and augmentation. No visualized echogenic m aterial on merritt scale. No defects on color images. POPLITEAL: Normal compression and augmentation. No visualized echogenic material on merritt scale. No de fects on color images. CALF VESSELS: Normal compression and augmentation. No visualized echogenic material on merritt scale. No defects on color image. GSV AND SSV: Normal compression. No visualized echogenic material on merritt scale. No defects on color images. ANY DEEP VENOUS INSUFFICIENCY: Not evaluated. ANY EVIDENCE OF POPLITEAL CYST: No. OTHER: No other significant finding. LEFT LEG COMMON FEMORAL : Normal phasicity, compression and augmentation. No visualized echogenic material on merritt scale. No defects on color images. SFV and POPLITEAL: Partial noncompressibility in the left mid and distal superficial femoral vein and popliteal veins. CALF VESSELS: Normal compression and augmentation. No visualized echogenic material on merritt scale. No defects on color images. GSV : Normal compression. No visualized echogenic material on merritt scale. No defects on color images. ANY DEEP VENOUS INSUFFICIENCY: Not evaluated. ANY EVIDENCE POPLITEAL CYST: No. OTHER: Similar noncompressibility in the short saphenous vein. IMPRESSION: Similar Partial noncompressibility in the left mid and distal superficial femoral vein a nd popliteal veins. Similar short saphenous vein thrombus. No propagation is identified. TECHNICAL DOCUMENTATION: JOB ID: [id number] [place]-72 2010 [employer]- All Rights Reserved Reading location - IP/workstation name: [employer]
== END ==
LOC: SP 18:14
PROVIDERS: ATTEND Physician Assistant
DX: M79.662 Pain in left lower leg (principal); M79.661 Pain in right lower leg; M79.89 Other specified soft tissue disorders
CPT/HCPCS: 93970

== ENCOUNTER 2017-08-24 20:08 | Emergency (ER) | payer BC ==
--- NOTE | 2017-08-24 20:47 | ER Document Report ---
ED General - General Chief Complaint: Shortness Of Breath Stated Complaint: SHORTNESS OF BREATH Time Seen by Provider: 08/24/17 20:44 Mode of Arrival: Ambulatory Information source: Patient Notes: This is a 51-year-old male with a history of Graves' disease, diagnosed with bilateral pulmonary emboli in June who is currently on Xarelto. The patient presents to the emergency room with left-sided chest pain associated with shortness of breath. Patient states that the pain started earlier today while in [facility]. TRAVEL OUTSIDE OF THE [place] IN LAST 30 DAYS: No - HPI Onset: This morning Onset/Duration: Gradual Quality of pain: Sharp Severity: Mild Pain Level: 1 Associated symptoms: Chest pain, Shortness of breath. denies: Fever Exacerbated by: Denies Relieved by: Denies Similar symptoms previously: Yes Recently seen / treated by doctor: Yes - Related Data Allergies/Adverse Reactions: acetaminophen [From Percocet] Adverse Reaction (Verified 06/30/17 14:31) oxycodone [From Percocet] Adverse Reaction (Verified 06/30/17 14:31) Past Medical History - General Information source: Patient - Social History Smoking Status: Never Smoker Cigarette use (# per day): No Chew tobacco use (# tins/day): No Frequency of alcohol use: Rare Drug Abuse: None Lives with: Spouse/Significant other Family History: None Patient has suicidal ideation: No Patient has homicidal ideation: No - Past Medical History Cardiac Medical History: Reports: Hx Hypertension Endocrine Medical History: Reports: Hx Hyperthyroidism Renal/ Medical History: Denies: Hx Peritoneal Dialysis Past Surgical History: Reports: Hx Orthopedic Surgery - 2016 Review of Systems - Review of Systems Constitutional: denies: Chills, Fever EENT: No symptoms reported Cardiovascular: See HPI Respiratory: See HPI Gastrointestinal: No symptoms reported Genitourinary: No symptoms reported Male Genitourinary: No symptoms reported Musculoskeletal: No symptoms reported Skin: No symptoms reported Hematologic/Lymphatic: No symptoms reported Neurological/Psychological: No symptoms reported Physical Exam - Vital signs Vitals: Temp Pulse BP Pulse Ox 98.3 F 81 152/97 H 96 08/24/17 20:17 08/24/17 20:17 08/24/17 20:17 08/24/17 20:17 Notes: Physical exam: GENERAL: 51-year-old man, alert and oriented 3, no acute distress HEAD: Atraumatic, normocephalic. EYES: Pupils equal round and reactive to light, extraocular movements intact, sclera anicteric, conjunctiva are normal. ENT: TMs normal, nares patent, oropharynx clear without exudates. Moist mucous membranes. NECK: Normal range of motion, supple without obvious mass or JVD. LUNGS: Breath sounds clear to auscultation bilaterally and equal. No wheezes rales or rhonchi. HEART: Regular rate and rhythm without murmurs, rubs or gallops. ABDOMEN: Soft, normoactive bowel sounds. No tenderness to palpation. No guarding, no rebound. No masses appreciated. 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 Normal speech, moving all extremities. PSYCH: Normal mood, normal affect. SKIN: Warm, Dry, normal turgor, no rashes or lesions noted. Bedside ultrasound: To the left flank, no hydronephrosis no obvious splenomegaly. Course - Re-evaluation Re-evalutation: 08/25/17 02:03 Note: The patient is stable at this time. His oxygen saturations have been 97% on room air. His vital signs have been stable. The CTA actually shows improvement with decreased volume of the existing pulmonary emboli (he remains on anticoagulation). One thing of noticed is he is having symptomatic PVCs that are occasional. There is never been more than 1 PVC in a row. I have checked a magnesium and other electrolytes and they are normal. We are repeating a delayed troponin. The plan if all remains well will be for discharge with follow-up to a mystery shopper for may be an event recorder. - Vital Signs Vital signs: Temp Pulse Resp BP Pulse Ox 98.3 F 81 152/97 H 96 08/24/17 20:17 08/24/17 20:17 08/24/17 20:17 08/24/17 20:17 - Laboratory Result Diagrams: 08/24/17 20:47 08/24/17 20:47 Laboratory results interpreted by me: 08/24/17 08/24/17 20:47 20:47 RDW 15.3 H Total Protein 8.5 H - Diagnostic Test Radiology reviewed: Image reviewed, Reports reviewed - CTA of the chest shows the decreased volume in the pulmonary emboli with no acute pulmonary emboli. - EKG Interpretation by Ny Rate: Normal Rhythm: NSR - EKG shows normal sinus rhythm with a ventricular rate of 76, no acute ST-T wave changes Discharge - Discharge Clinical Impression: Chest wall pain Clinical Impression: (Ruled Out): Chest wall Condition: Stable Disposition: HOME, SELF-CARE Additional Instructions: As we discussed, the CT of the chest showed decreased volume of the pulmonary emboli (which is a good thing). Continue the medicines as prescribed. Follow-up with Dr. Jorge as planned. If on repeat ultrasound of the lower extremity, the DVT is unchanged, you may want to consider follow-up with a vascular surgeon (I would discuss this with Dr. Jorge). Return to the ER for any worsening pain. Referrals: JOSE F JORGE MD [Primary Care Provider] - Follow up in 3-5 days
[2017-08-24 21:10] LABS: ABSOLUTE EOSINOPHILS # (AUTO) 0.1 10^3/uL (0.0-0.6); ABSOLUTE MONOCYTES (AUTO) 0.7 10^3/uL (0.1-1.4); BASOPHILS % (AUTO) 0.4 % (0-2); EOSINOPHILS % (AUTO) 1.2 % (0-6); HEMATOCRIT 46.5 % (37.9-51.0); HEMOGLOBIN 15.6 g/dL (13.5-17.0); LYMPHOCYTES % (AUTO) 22.7 % (13-45); MEAN CORPUSCULAR HEMOGLOBIN 29.5 pg (27.0-33.4); MEAN CORPUSCULAR HGB CONC 33.6 g/dL (32.0-36.0); MEAN CORPUSCULAR VOLUME 88 fl (80-97); MONOCYTES % (AUTO) 7.5 % (3-13); PLATELET COUNT 313 10^3/uL (150-450); RED CELL DISTRIBUTION WIDTH 15.3 % (11.5-14.0); SEGMENTED NEUTROPHILS % (AUTO) 68.2 % (42-78); TOTAL CELLS COUNTED % (AUTO) 100 %; WHITE BLOOD COUNT 8.7 10^3/uL (4.0-10.5)
[2017-08-24 21:28] LABS: ALANINE AMINOTRANSFERASE 37 U/L (21-72); ALBUMIN 4.7 g/dL (3.5-5.0); ALKALINE PHOSPHATASE 97 U/L (38-126); ANION GAP 11 (5-19); ASPARTATE AMINO TRANSFERASE 23 U/L (17-59); BILIRUBIN,DIRECT 0.3 mg/dL (0.0-0.4); BILIRUBIN,TOTAL 0.3 mg/dL (0.2-1.3); BLOOD UREA NITROGEN 19 mg/dL (7-20); CALCIUM 10.1 mg/dL (8.4-10.2); CARBON DIOXIDE 29 mmol/L (22-30); CHLORIDE 105 mmol/L (98-107); CREATINE KINASE 84 U/L (55-170); GLUCOSE 97 mg/dL (75-110); POTASSIUM 4.4 mmol/L (3.6-5.0); SODIUM 144.7 mmol/L (137-145); TOTAL PROTEIN 8.5 g/dL (6.3-8.2)
[2017-08-24 21:39] LABS: CREATINE KINASE MB 1.77 ng/mL (<4.55)
[2017-08-24 21:42] LABS: TROPONIN I < 0.012 ng/mL
--- NOTE | 2017-08-24 21:55 | EKG REPORT ---
SEVERITY:- OTHERWISE NORMAL ECG - SINUS RHYTHM BORDERLINE LEFT AXIS DEVIATION : Confirmed by: Jose Cadena 24-Aug-2017 21:54:28
--- NOTE | 2017-08-24 22:02 | RADIOLOGY REPORT (SQ) ---
EXAM DESCRIPTION: CHEST SINGLE VIEW COMPLETED DATE/TIME: 08/24/2017 8:55 pm REASON FOR STUDY: chest pain COMPARISON: 07/10/2017 EXAM PARAMETERS: NUMBER OF VIEWS: One view. TECHNIQUE: Single frontal radiographic view of the chest acquired. RADIATION DOSE: NA LIMITATIONS: None. FINDINGS: LUNGS AND PLEURA: No acute opacities, masses or pneumothorax. No pleural effusion. MEDIASTINUM AND HILAR STRUCTURES: Stable. HEART AND VASCULAR STRUCTURES: Stable cardiomegaly. BONES: No acute findings. HARDWARE: None in the chest. OTHER: No other significant finding. IMPRESSION: NO ACUTE RADIOGRAPHIC FINDING IN THE CHEST. TECHNICAL DOCUMENTATION: JOB ID: [id number] [place]-72 2010 [employer]- All Rights Reserved Reading location - IP/workstation name: [employer]
--- NOTE | 2017-08-24 22:24 | RADIOLOGY REPORT (SQ) ---
EXAM DESCRIPTION: CTA CHEST COMPLETED DATE/TIME: 08/24/2017 9:52 pm REASON FOR STUDY: cp, h/o bilateral PEs COMPARISON: 07/10/2017 TECHNIQUE: CT scan of the chest performed using helical scanning technique with dynamic intravenous contrast injection. Images reviewed with lung, soft tissue and bone windows. Reconstructed coronal and sagittal MPR images reviewed. Additional 3 dimensional post-processing performed to develop Maximal Intensity Projection images ([place] P). All images stored on PACS. All CT scanners at this facility use dose modulation, iterative reconstruction, and/or weight based d osing when appropriate to reduce radiation dose to as low as reasonably achievable (ALARA). [facility]: Dose Right [facility]: CareDose [facility]: Dose Right [facility]: Teradose 4D [facility]: [employer] CONTRAST TYPE AND DOSE: contrast/concentration: Isovue 370.00 mg/ml; Total Contrast Delivered: 70.0 ml; Total Saline Delivered: 70.0 ml Contrast bolus optimized for the pulmonary arteries. Not diagnostic for the aorta. RENAL FUNCTION: GFR > 60. RADIATION DOSE: CT Rad equipment meets quality standard of care and radiation dose reduction techniq ues were employed. CTDIvol: 13.2 - 25.9 mGy. DLP: 925 mGy-cm. . LIMITATIONS: None. FINDINGS: LUNGS AND PLEURA: No masses, infiltrates, pneumothorax. No pleural effusions, calcificati ons. AORTA AND GREAT VESSELS: No aneurysm. Contrast bolus not optimized for the aorta. HEART: No pericardial effusion. No significant coronary artery calcifications. PULMONARY ARTERIES: Diminished volume of the chronic emboli in the right middle and lower lobe centra l pulmonary arteries. No acute pulmonary emboli. HILAR AND MEDIASTINAL STRUCTURES: No identified masses or abnormal nodes. HARDWARE: None in the chest. UPPER ABDOMEN: No significant findings. Limited exam. THYROID AND OTHER SOFT TISSUES: No masses. No adenopathy. BONES: No acute or significant finding. 3D MIPS: Confirm above findings. OTHER: No other significant finding. IMPRESSION: Diminished volume of the chronic emboli in the right middle and lower lobe central pulmo nary arteries. No acute pulmonary emboli. COMMENT: Quality ID # [id number]: Final reports with documentation of one or more dose reduction techniques (e.g., Automated exposure control, adjustment of the mA and/or kV according to patient size, use of iterative reconstruction technique) TECHNICAL DOCUMENTATION: JOB ID: [id number] [place]-72 2010 [employer]- All Rights Reserved Reading location - IP/workstation name: [email or web address]
[2017-08-25 03:11] VITALS: BP 143/96
== END 2017-08-25 03:11 | disposition home or self-care (01) ==
LOC: ER 20:08
DX: I27.82 Chronic pulmonary embolism (principal); Z79.01 Long term (current) use of anticoagulants; I49.3 Ventricular premature depolarization; I10 Essential (primary) hypertension; R07.89 Other chest pain; R06.02 Shortness of breath
CPT/HCPCS: 36415; 71045; 71275; 80053; 82550; 82553; 83735; 84484; 85025; 93005; 93010; 99285

== ENCOUNTER → 2017-10-03 | Outpatient (CLI) | payer BC ==
--- NOTE | 2017-10-03 18:45 | RADIOLOGY REPORT (SQ) ---
EXAM DESCRIPTION: MRI HEAD COMBO COMPLETED DATE/TIME: 10/03/2017 5:50 pm REASON FOR STUDY: UNSPECIFIED VISUAL DISTURBANCE;HEADACHE H53.9 UNSPECIFIED VISUAL DISTURBANCE R51 HEADACHE COMPARISON: None. TECHNIQUE: Multiplanar imaging includes noncontrasted T1, T2, FLAIR, diffusion with ADC map and post gadolinium contrast T1 sequences. Images stored on PACS. CONTRAST TYPE AND DOSE: 20 mL MultiHance RENAL FUNCTION: GFR > 60. LIMITATIONS: None. FINDINGS: ANATOMY: No anomalies. Normal vascular flow voids. Pituitary fossa normal. CSF SPACES: Normal in size and contour. No hemorrhage. CEREBRUM: Sulci and gyri normal in size and contour. Normal white matter signal on FLAIR imaging. No evidence of hemorrhage, mass, or extraaxial fluid collection. No abnormal enhancement post contrast. POSTERIOR FOSSA: No signal alteration. No hemorrhage. No edema, masses, or mass effect. Internal robert tory canals, cerebellopontine angles, mastoids normal. No enhancing lesions. No abnormal enhancement post contrast. DIFFUSION IMAGING: Negative for acute or subacute infarction. ORBITS: No masses. Globes normal. PARANASAL SINUSES: No fluid levels. Mucosa normal. OTHER: No other significant finding. IMPRESSION: NORMAL MRI OF THE BRAIN WITHOUT AND WITH INTRAVENOUS GADOLINIUM CONTRAST. EVIDENCE OF ACUTE STROKE: NO. TECHNICAL DOCUMENTATION: JOB ID: [id number] [employer]- All Rights Reserved Reading location - IP/workstation name: [email or web address]
== END ==
LOC: RAD 16:43
PROVIDERS: ATTEND Internal Medicine
DX: H53.9 Unspecified visual disturbance (principal); R51 Headache
CPT/HCPCS: 82565; 70553; A9577

== ENCOUNTER → 2017-10-12 | Outpatient (CLI) | payer BC ==
[~2017-10-12] MED LIST: REGADENOSON INJ 0.4 MG/5 ML DISP.SYRIN IV ONE
--- NOTE | 2017-10-12 18:26 | DRAGON STRESS TEST REPORT ---
INTRAVENOUS LEXISCAN CARDIOLITE STRESS TEST USING SINGLE PHOTON EMMISION COMPUTERIZED TOMOGRAPHIC. DATE OF PROCEDURE: October 12, 2017, INDICATION : Chest pain CARDIAC RISK FACTORS: Hypertension RESTING EKG: Sinus rhythm without any baseline ST-T wave changes STRESS EKG: No significant ST segment changes noted with LexiScan bolus REASON FOR TERMINATION: Protocol. PROCEDURE REPORT: Baseline heart rate 67 beats per minute with blood pressure of 142/80. Patient had no significant complaints. Patient was bolused with Lexiscan 0.4 mg intravenously followed by saline bolus. Heart rate at 2 minutes post bolus 98 with a blood pressure of 141/67. 3 minutes post bolus heart rate 90 with blood pressure of 160/70. No significant EKG changes were noted. Patient had no significant complaints during the procedure or postprocedure. Patient injected with Aminophyllin 75 mg at 3 minutes or later after Lexiscan bolus. CONCLUSIONS: Normal EKG and hemodynamic response to IV LexiScan. NUCLEAR DATA: At rest the patient was given 14.10 millicuries of technetium 99 sestamibi injected intravenously. As per protocol rest gated SPECT images were obtained. On day of stress test, the patient was given intravenous LexiScan at a dose of 0.4 mg in 5 mL intravenously, followed by flush with normal saline. Subsequently the stress dose of 44.1 millicuries of technetium 99 sestamibi was injected intravenously. As per protocol stress gated images were obtained. NUCLEAR INTERPRETATION: Both raw and processed data were used for interpretation. Visual, qualitative, computer-generated quantitative data was used. There was good myocardial uptake of technetium compound. Motion artifact and soft tissue attenuations were noted. Increased visceral uptake was noted. No definitive areas of transient perfusion defect noted, No definitive areas of fixed perfusion defect or scars noted. EKG gated imaging showed LV EF at 55 %, rest and stress gated EF similar visually. T. I D. ratio was 1.33, this is borderline abnormal. Lung heart ratio noted to be within normal limits 0.36. No significant extracardiac and abnormal radiotracer activities were noted. RV free wall uptake was noted to be increased. IMPRESSION: Also refer to comments under nuclear interpretation. Also test results needs to be interpreted in the context of pretest probability. 1. No definitive areas of transient perfusion defect noted. 2. There is no definitive scintigraphic evidence of myocardial infarction/scar. 3. EKG gated imaging shows left ventricular ejection fraction of approx. 55 %. 4. Borderline abnormal transient ischemic dilatation noted. Visually did not seem significant. Also based on most recent literature review, Journal of nuclear medicine, August 2013, transient ischemic dilatation in the absence of significant perfusion abnormality does not necessarily translate into increased cardiovascular event rate. Clinical correlation requested as occasionally single vessel disease or balanced ischemia could be missed. In approximately 10 % of the cases Lexiscan may not cause adequate vasodilatory stress. RECOMMENDATIONS: Aggressive risk factor modification and medical management. Further evaluation may be needed if continued symptoms or other high risk indicators are noted on clinical evaluation. Close cardiology follow-up is also recommended. Clinical correlation with echocardiogram derived ejection fraction. Inability to exercise by itself can lead to increased cardiovascular event risks. Consider cardiology consultation and or follow-up if clinically indicated. I am available for cardiology evaluation and consultation if requested by the automotive starter repairer, unless patient already has a business systems consultant. SREE
== END ==
LOC: RAD 08:07
PROVIDERS: ATTEND Internal Medicine Cardiovascular Disease
DX: R07.9 Chest pain, unspecified (principal); I10 Essential (primary) hypertension
CPT/HCPCS: 93017; 78452; A9500; J2785; Q9969

== ENCOUNTER → 2017-11-21 | Outpatient (CLI) | payer BC ==
--- NOTE | 2017-11-21 13:17 | RADIOLOGY REPORT (SQ) ---
EXAM DESCRIPTION: VENOUS UNILATERAL LOWER COMPLETED DATE/TIME: 11/21/2017 12:20 pm REASON FOR STUDY: LLE PAIN I82.412 ACUTE EMBOLISM AND THROMBOSIS OF LEFT FEMORAL VEIN M79.609 PAIN IN UNSPECIFIED LIMB M79.89 OTHER SPECIFIED SOFT TISSUE DISORDERS COMPARISON: 07/15/2017, 06/30/2017 venous Doppler exams TECHNIQUE: Dynamic and static merritt scale and color images acquired of the left leg venous system. Se lected spectral images acquired with additional compression and augmentation maneuvers. The contralat eral common femoral vein and saphenofemoral junction were also imaged. Images stored on PACS. LIMITATIONS: None. FINDINGS: LEFT COMMON FEMORAL: Normal phasicity, compression and augmentation. No visualized echogenic material on g ray scale. No defects on color images. FEMORAL: Echogenic chronic clot is seen in the left superficial femoral vein. Distal half of the sup erficial femoral vein appears to be occluded (was partially recannulized in June). POPLITEAL: Echogenic chronic clot is seen in the left popliteal vein. Popliteal vein appears to be o ccluded (was partially recannulized in June). CALF VESSELS: Normal compression, augmentation. No visualized echogenic material on merritt scale. No de fects on color images. GSV and SSV: Normal compression, augmentation. No visualized echogenic material on merritt scale. No def ects on color images. ANY DEEP VENOUS INSUFFICIENCY: Not evaluated. ANY EVIDENCE OF POPLITEAL CYST: No. OTHER: No other significant finding. RIGHT COMMON FEMORAL VEIN AND SAPHENOFEMORAL JUNCTION: Normal phasicity, compression and augmentation. No visualized echogenic material on merritt scale. No de fects on color images. IMPRESSION: Echogenic chronic appearing clot in the distal left superficial femoral vein and poplite al vein. No flow in these areas on today's study (partially recannulized thrombus was seen in Februa ry in these areas). TECHNICAL DOCUMENTATION: JOB ID: [id number] [employer]- All Rights Reserved Reading location - IP/workstation name: [email or web address]
== END ==
LOC: SP 11:13
PROVIDERS: ATTEND Internal Medicine
DX: I82.412 Acute embolism and thrombosis of left femoral vein (principal); M79.605 Pain in left leg; M79.89 Other specified soft tissue disorders
CPT/HCPCS: 93971

== ENCOUNTER → 2018-05-18 | Outpatient (CLI) | payer BC ==
--- NOTE | 2018-05-18 19:00 | RADIOLOGY REPORT (SQ) ---
EXAM DESCRIPTION: CTA CHEST COMPLETED DATE/TIME: 05/18/2018 5:43 pm REASON FOR STUDY: CHEST PAIN,SOB R06.02 SHORTNESS OF BREATH R07.9 CHEST PAIN, UNSPECIFIED COMPARISON: CT chest, 08/24/2017 TECHNIQUE: CT scan of the chest performed using helical scanning technique with dynamic intravenous contrast injection. Images reviewed with lung, soft tissue and bone windows. Reconstructed coronal and sagittal MPR images reviewed. Additional 3 dimensional post-processing performed to develop Maximal Intensity Projection images ([place] P). All images stored on PACS. All CT scanners at this facility use dose modulation, iterative reconstruction, and/or weight based d osing when appropriate to reduce radiation dose to as low as reasonably achievable (ALARA). [facility]: Dose Right [facility]: CareDose [facility]: Dose Right [facility]: Teradose 4D [facility]: [employer] CONTRAST TYPE AND DOSE: contrast/concentration: Isovue mg/ml; Total Contrast Delivered: 79.0 ml; To toshia Saline Delivered: 110.0 ml Contrast bolus optimized for the pulmonary arteries. Not diagnostic for the aorta. RENAL FUNCTION: GFR > 60. RADIATION DOSE: CT Rad equipment meets quality standard of care and radiation dose reduction techniq ues were employed. CTDIvol: 15.4 - 26.3 mGy. DLP: 553 mGy-cm. . LIMITATIONS: None. FINDINGS: LUNGS AND PLEURA: No masses, infiltrates, or pneumothorax. No pleural effusions or pleura l calcifications. AORTA AND GREAT VESSELS: No aneurysm. Contrast bolus not optimized for the aorta. HEART: No pericardial effusion. No significant coronary artery calcifications. PULMONARY ARTERIES: No emboli visualized in the main pulmonary arteries or the segmental branches. HILAR AND MEDIASTINAL STRUCTURES: No identified masses or abnormal nodes. HARDWARE: None in the chest. UPPER ABDOMEN: No significant findings. Limited exam. THYROID AND OTHER SOFT TISSUES: No masses. No adenopathy. BONES: No acute or significant finding. 3D MIPS: Confirm above findings. OTHER: No other significant finding. IMPRESSION: Negative examination for pulmonary embolism. COMMENT: Quality ID # [id number]: Final reports with documentation of one or more dose reduction techniques (e.g., Automated exposure control, adjustment of the mA and/or kV according to patient size, use of iterative reconstruction technique) TECHNICAL DOCUMENTATION: JOB ID: [id number]- All Rights Reserved Reading location - IP/workstation name: [email or web address]
--- NOTE | 2018-05-18 19:58 | RADIOLOGY REPORT (SQ) ---
EXAM DESCRIPTION: L SPINE 2 VIEWS COMPLETED DATE/TIME: 05/18/2018 5:45 pm REASON FOR STUDY: BACKPAIN R06.02 SHORTNESS OF BREATH R07.9 CHEST PAIN, UNSPECIFIED COMPARISON: None. NUMBER OF VIEWS: Three views TECHNIQUE: AP and lateral and coned-down lateral radiographic images acquired of the lumbar spine. LIMITATIONS: None. FINDINGS: MINERALIZATION: Normal. SEGMENTATION: Normal. No transitional anatomy. ALIGNMENT: Normal. VERTEBRAE: Maintained height. No fracture or worrisome bone lesion. DISCS: L5-S1 disc space is narrowed. POSTERIOR ELEMENTS: Pedicles and facets are intact. No pars defect or posterior arch defects. HARDWARE: None in the spine. PARASPINAL SOFT TISSUES: Normal. PELVIS: Intact as visualized. No fractures or worrisome bone lesions. SI joints intact. OTHER: No other significant finding. IMPRESSION: Mild degenerative disc changes. No acute finding. TECHNICAL DOCUMENTATION: JOB ID: [id number] [employer]- All Rights Reserved Reading location - IP/workstation name: [email or web address]
== END ==
LOC: RAD 17:26
PROVIDERS: ATTEND Internal Medicine Hematology & Oncology
DX: R06.02 Shortness of breath (principal); R07.9 Chest pain, unspecified; M54.9 Dorsalgia, unspecified; M51.37 Other intervertebral disc degeneration, lumbosacral region
CPT/HCPCS: 71275; 72100; 82565

== ENCOUNTER 2018-11-16 18:03 | Emergency (ER) | payer BC ==
[2018-11-16 18:12] VITALS: BP 174/96
[2018-11-16] MEDS ORDERED: HYDROCODONE/ACETAMINOPHEN 5-325 MG TABLET PO ONE (18:22)
--- NOTE | 2018-11-16 18:34 | ER Document Report ---
ED Medical Screen (RME) - General Chief Complaint: Shortness Of Breath Stated Complaint: FALL/BACK PAIN Time Seen by Provider: 11/16/18 18:17 Primary Care Provider: OSMANY BUITRAGO MD [Primary Care Provider] - Follow up as needed Mode of Arrival: Ambulatory Information source: Patient Notes: 53-year-old male presented to ED for complaint of pain to the left ribs pos teriorly with increased pain with breathing. He states it is becoming difficult to breathe due to the pain. He states he fell last night hitting the jeep door causing a large hematoma to his back. He is on Xarelto for history of PE and DVT. Patient is alert oriented respirations regular and unlabored speaking in full sentences he is able to walk with a even steady gait. I have greeted and performed a rapid initial assessment of this patient. A comprehensive ED assessment and evaluation of the patient, analysis of test results and completion of medical decision making process will be conducted by an additional ED providers. Dictation of this chart was performed using voice recognition software; therefore, there may be some unintended grammatical errors. TRAVEL OUTSIDE OF THE [place] IN LAST 30 DAYS: No - Related Data Allergies/Adverse Reactions: acetaminophen [From Percocet] Adverse Reaction (Verified 11/16/18 18:11) oxycodone [From Percocet] Adverse Reaction (Verified 11/16/18 18:11) Past Medical History - Social History Chew tobacco use (# tins/day): No Frequency of alcohol use: None Drug Abuse: None - Past Medical History Cardiac Medical History: Reports: Hx Hypertension Endocrine Medical History: Reports: Hx Hyperthyroidism Renal/ Medical History: Denies: Hx Peritoneal Dialysis Past Surgical History: Reports: Hx Orthopedic Surgery - 2016 - Immunizations History of Influenza Vaccine for 02/2017 - 07/2017 Season: Refused Physical Exam - Vital signs Vitals: Temp Pulse Resp BP Pulse Ox 97.2 F 59 L 16 174/96 H 98 11/16/18 18:11 11/16/18 18:11 11/16/18 18:11 11/16/18 18:11 11/16/18 18:11 Course - Vital Signs Vital signs: Temp Pulse Resp BP Pulse Ox 97.2 F 59 L 16 174/96 H 98 11/16/18 18:11 11/16/18 18:11 11/16/18 18:11 11/16/18 18:11 11/16/18 18:11 Doctor's Discharge - Discharge Referrals: OSMANY BUITRAGO MD [Primary Care Provider] - Follow up as needed
--- NOTE | 2018-11-16 19:02 | RADIOLOGY REPORT (SQ) ---
EXAM DESCRIPTION: RIBS LEFT W/PA CHEST COMPLETED DATE/TIME: 11/16/2018 6:41 pm REASON FOR STUDY: fall pain on xeratlto for pe and dvt COMPARISON: None. TECHNIQUE: Frontal view of the chest and additional views of the left ribs acquired. NUMBER OF VIEWS: Four view. LIMITATIONS: None. FINDINGS: FRONTAL CXR: No pneumothorax. No pleural effusion. No atelectasis or infiltrates. RIBS: No displaced rib fractures. No lytic or blastic bony lesions. OTHER: No other significant finding. IMPRESSION: NO PNEUMOTHORAX. NO DISPLACED RIB FRACTURES. COMMENT: SITE OF TRAUMA/COMPLAINT MARKED/STAMP COMPLETED: NO. TECHNICAL DOCUMENTATION: JOB ID: [id number] [place]-72 2010 [employer]- All Rights Reserved Reading location - IP/workstation name: [email or web address].
--- NOTE | 2018-11-16 19:24 | ER Document Report ---
ED General - General Chief Complaint: Shortness Of Breath Stated Complaint: FALL/BACK PAIN Time Seen by Provider: 11/16/18 18:17 Primary Care Provider: OSMANY BUITRAGO MD [Primary Care Provider] - Follow up as needed Mode of Arrival: Ambulatory TRAVEL OUTSIDE OF THE [place] IN LAST 30 DAYS: No - HPI Notes: Patient is a 53-year-old male that presents to the emergency department for chief complaint of left rib pain. Patient reports tripping and falling yesterday landing on his left rib cage. He has had a sharp pain in his left back and ribs since the fall. He states the pain is worse when he is taking a deep breath in. He has been taking Tylenol at home for the pain. Patient is currently on Xarelto for history of DVT and PE secondary to factor V Leiden. He denies any difficulty breathing just stating that it hurts to breathe. He denies any palpitations, chest pain and syncopal event. Past Medical History: Factor V Leiden DVT, PE Past Surgical History: Reviewed in chart Social History: Denies tobacco drug and alcohol use Family History: Reviewed and noncontributory for presenting illness Allergies: Reviewed, see documented allergy list. REVIEW OF SYSTEMS: CONSTITUTIONAL : No fever No chills No diaphoresis No recent illness EENT: No vision changes No congestion No sore throat CARDIOVASCULAR: No chest pain No palpitations RESPIRATORY: No shortness of breath No cough No difficulty breathing GASTROINTESTINAL: No abdominal pain No nausea No vomiting No diarrhea GENITOURINARY: No dysuria No hematuria No difficulty urinating MUSCULOSKELETAL: back pain No leg pain No arm pain SKIN: No rashes Ecchymosis LYMPHATIC: No swollen, enlarged glands. NEUROLOGICAL: No lightheadedness No headache No weakness No paresthesias PSYCHIATRIC: No anxiety No depression PHYSICAL EXAMINATION: Vital signs reviewed, nursing noted reviewed. GENERAL: Well-appearing, well-nourished and in no acute distress. HEAD: Atraumatic, normocephalic. EYES: Eyes appear normal, extraocular movements intact, sclera anicteric, conjunctiva are normal. ENT: nares patent, oropharynx clear without exudates. Moist mucous membranes. NECK: Normal range of motion, supple without lymphadenopathy LUNGS: Breath sounds clear to auscultation bilaterally and equal. No wheezes rales or rhonchi. HEART: Regular rate and rhythm without murmurs ABDOMEN: Soft, nontender, normoactive bowel sounds. No rebound, guarding, or rigidity. No masses appreciated. Back: Left posterior thoracic rib tenderness with overlying ecchymosis. No flail segment or crepitus. No midline thoracic or lumbar spinal tenderness, normal range of motion of the spine. EXTREMITIES: Nontender, good range of motion, no pitting or edema. NEUROLOGICAL: No focal neurological deficits. Moves all extremities spontaneously Motor and sensory grossly intact on exam. PSYCH: Normal mood, normal affect. SKIN: Warm, Dry, normal turgor, ecchymosis on posterior thoracic back around the level of T8/T9 - Related Data Allergies/Adverse Reactions: acetaminophen [From Percocet] Adverse Reaction (Verified 11/16/18 18:11) oxycodone [From Percocet] Adverse Reaction (Verified 11/16/18 18:11) Past Medical History - General Information source: Patient - Social History Smoking Status: Unknown if Ever Smoked Chew tobacco use (# tins/day): No Frequency of alcohol use: None Drug Abuse: None Family History: None Patient has suicidal ideation: No Patient has homicidal ideation: No - Past Medical History Cardiac Medical History: Reports: Hx Hypertension Endocrine Medical History: Reports: Hx Hyperthyroidism Renal/ Medical History: Denies: Hx Peritoneal Dialysis Past Surgical History: Reports: Hx Orthopedic Surgery - 2016 Physical Exam - Vital signs Vitals: Temp Pulse Resp BP Pulse Ox 97.2 F 59 L 16 174/96 H 98 11/16/18 18:11 11/16/18 18:11 11/16/18 18:11 11/16/18 18:11 11/16/18 18:11 Course - Re-evaluation Re-evalutation: 11/16/18 19:24 Vitals reviewed. Nursing notes reviewed. There is no report of head injury or loss of consciousness. Patient is oxygenating well on room air. X-ray was obtained showing no acute rib fracture or underlying pneumothorax/hemothorax. Patient is otherwise hemodynamically stable. He was given [place] in triage and had some improvement of his pain. He will be given a [place] prescription for home as well as incentive spirometer. Patient counseled on returning to the emergency room if he has any difficulty breathing or uncontrolled pain. He will follow with his primary care doctor for reevaluation next week. He is stable for discharge. Ribs w/Chest X-Ray 11/16/18 18:21 IMPRESSION: NO PNEUMOTHORAX. NO DISPLACED RIB FRACTURES. - Vital Signs Vital signs: Temp Pulse Resp BP Pulse Ox 97.2 F 59 L 16 174/96 H 98 11/16/18 18:11 11/16/18 18:11 11/16/18 18:11 11/16/18 18:11 11/16/18 18:11 Discharge - Discharge Clinical Impression: Contusion of rib on left side Qualifiers: Encounter type: initial encounter Qualified Code(s): S20.212A - Contusion of left front wall of thorax, initial encounter Condition: Stable Disposition: HOME, SELF-CARE Instructions: Rib Contusion ([facility]) Additional Instructions: Please return to the emergency department if you have any worsening, or concern of your symptoms. Please return to the emergency department if you develop chest pain, difficulty breathing, severe abdominal pain, or ongoing vomiting. Please follow-up with your primary care physician in 5-7 days and any other recommended physicians. If prescribed, take all medications as directed. If you have any questions or concerns do not hesitate to return the emergency department for evaluation. Take 10 deep breaths with the incentive spirometer 2-3 times a day to prevent pneumonia Prescriptions: Hydrocodone/Acetaminophen [[place] 5-325 Tablet] 1 each PO Q6 #10 tablet Referrals: OSMANY BUITRAGO MD [Primary Care Provider] - Follow up in 1 week
== END 2018-11-16 19:51 | disposition home or self-care (01) ==
LOC: ER 18:03
DX: S20.212A Contusion of left front wall of thorax, initial encounter (principal); R06.02 Shortness of breath; W18.30XA Fall on same level, unspecified, initial encounter; I10 Essential (primary) hypertension; Z86.718 Personal history of other venous thrombosis and embolism; Z86.711 Personal history of pulmonary embolism; Z79.02 Long term (current) use of antithrombotics/antiplatelets; Z88.6 Allergy status to analgesic agent
CPT/HCPCS: 99283

== ENCOUNTER 2019-02-05 15:15 | Day surgery (SDC) | payer BC ==
[2019-02-05] MEDS ORDERED: NALOXONE HCL INJ/PF 0.4 MG/1 ML SDV ONE (18:55)
[2019-02-05] MEDS ORDERED: DIPHENHYDRAMINE HCL 50 MG/ML VIAL ONE (18:55)
[2019-02-05] MEDS ORDERED: FLUMAZENIL INJ 0.5 MG/5 ML VIAL ONE (18:55)
[2019-02-05] MEDS ORDERED: ONDANSETRON HCL INJ/PF 4 MG/2 ML SDV ONE (18:55)
[2019-02-05] MEDS ORDERED: EPINEPHRINE INJ 1 MG/10 ML DISP.SYRIN ONE (18:56)
[2019-02-05] MEDS ORDERED: GLUCAGON,HUMAN RECOMB 1 MG INJ ONE (18:56)
[2019-02-05] MEDS: MIDAZOLAM 2 MG/2 ML INJ ONE ×2 (19:02→19:08)
[2019-02-05] MEDS: FENTANYL CITRATE INJ/PF 100 MCG/2 ML AMPUL ONE ×2 (19:04→19:06)
--- NOTE | 2019-02-05 19:33 | Operative Report ---
Operative Report DATE OF SURGERY: 02/05/19 Operative Report: Pre-op diagnosis: Reflux disease on colon cancer screening Post-op diagnosis: 1. 6 cm Castellanos's esophagus 2. Rectal polyp 3. Internal hemorrhoids Surgery: Upper endoscopy with biopsy and Colonoscopy with biopsy Medications: Versed 3mg, Fentanyl 100mcg IV push Tissue removed: Gastric and esophageal biopsies. Rectal polyp Procedure: After informed consent obtained from patient, patient's pharynx was sprayed with Hurricane and conscious sedation was achieved. The upper endoscope was then inserted into the esophagus under direct vision and advanced into the stomach and further into the duodenum. Detailed examination of the duodenum, stomach and the esophagus was then performed. A digital rectal examination was performed and this was unremarkable. The colonoscope was inserted into the rectum and advanced to the cecum. The appendiceal orifice and the terminal ileum were both identified. The mucosa was examined into details as the colonoscope was slowly pulled out of the patient. The endoscope was retroflexed in the rectum. Patient tolerated the procedure well. Findings Esophagus: The GE junction was at 40 cm. Patient had a 6 cm length of columnar epithelium consistent with Castellanos's. Biopsies were taken. Stomach: Normal. Biopsy was taken from the antrum and body to rule out H. pylori Duodenum: Normal Cecum: Normal Ascending colon: Normal Transverse colon: Normal Descending colon: Normal Sigmoid colon: Normal Rectum: A 2 mm polyp was removed with the biopsy forceps. Internal hemorrhoids were also noted Plan: Await pathology. Continue omeprazole every day. Repeat EGD in 1 year. Future colonoscopy based on pathology OPERATION: .
[2019-02-05 20:19] VITALS: BP 151/85
== END 2019-02-05 20:15 | disposition home or self-care (01) ==
LOC: END 15:15
PROVIDERS: ATTEND Internal Medicine Gastroenterology
DX: Z12.11 Encounter for screening for malignant neoplasm of colon (principal); D12.8 Benign neoplasm of rectum; K62.5 Hemorrhage of anus and rectum; K29.50 Unspecified chronic gastritis without bleeding; K64.8 Other hemorrhoids; K21.9 Gastro-esophageal reflux disease without esophagitis; I10 Essential (primary) hypertension; E05.00 Thyrotoxicosis with diffuse goiter without thyrotoxic crisis or storm; D68.62 Lupus anticoagulant syndrome; D68.51 Activated protein C resistance; D68.61 Antiphospholipid syndrome; Z86.711 Personal history of pulmonary embolism; Z86.718 Personal history of other venous thrombosis and embolism; Z79.01 Long term (current) use of anticoagulants; Z79.899 Other long term (current) drug therapy
CPT/HCPCS: 43239; 45380; 88305 ×2; J2250; J3010; J0171; J1200; J1610; J2310; J2405; J3490

== ENCOUNTER → 2019-02-11 | Outpatient (CLI) | payer BC ==
--- NOTE | 2019-02-11 15:02 | RADIOLOGY REPORT (SQ) ---
EXAM DESCRIPTION: CT SINUSES FOR ENT COMPLETED DATE/TIME: 02/11/2019 1:35 pm REASON FOR STUDY: J34.3 HYPERTROPHY OF NASAL TURBINATES K21.9 GASTRO-ESOPHAGEAL REFLUX DISEASE WITH OUT ESOPHAGITIS J34.3 HYPERTROPHY OF NASAL TURBINATES COMPARISON: None. TECHNIQUE: Noncontrast scanning through the paranasal sinuses using bone algorithm. Reconstructed MPR images reviewed. All images stored on PACS. All CT scanners at this facility use dose modulation, iterative reconstruction, and/or weight based d osing when appropriate to reduce radiation dose to as low as reasonably achievable (ALARA). [facility]: Dose Right [facility]: CareDose [facility]: Dose Right [facility]: Teradose 4D [facility]: Bitmenu RADIATION DOSE: mGy. LIMITATIONS: None. FINDINGS: Right sinuses and drainage pathways: Post-surgical changes: None. Frontal sinus: Normal. Frontoethmoidal Recess: Normal. Anterior Ethmoid Sinuses: Normal. Posterior Ethmoid Sinuses: Normal. Sphenoid Sinus: Normal. Sphenoethmoidal Recess: Normal. Maxillary Sinus: Smaller fluid level Ostiomeatal Complex: Normal. Left Sinuses and Drainage Pathways: Post-Surgical Changes: None. Frontal Sinus: Normal. Frontoethmoidal Recess: Normal. Anterior Ethmoid Sinuses: Normal. Posterior Ethmoid Sinuses: Normal. Sphenoid Sinus: Normal. Sphenoethmoidal Recess: Normal. Maxillary Sinus: Smaller fluid level Ostiomeatal Complex: Normal. Right Olfactory Fossa: No polyps. Left Olfactory Fossa: No polyps. Middle Turbinate Bushra Bullosa: No. Paradoxical Middle Turbinate: No. Atelectatic Uncinated Process: No. Frontal Naheed Cell Type I: No. Frontal Naheed Cell Type II: No. Interfrontal Sinus Septal Cell: None. Suptra-Orbital Ethmoid: On the left. Frontal Bullar Cell: None. Suprabullar Bullar Cell: None. Sphenoethmoidal (Onodi) Cell: None. Pneumatization of the Anterior Clinoid Processes: No Hypoplastic Maxillary Sinus: None. Osteoneogenesis: None. Bone Dehiscence:None. Nasal Cavity: Normal. Nasal Septum: Deviated left Anatomic Variants: Right Vidian Canal: Normal. Left Vidian Canal: Normal. IMPRESSION: Minimal air-fluid levels both maxillary sinuses. Left deviated nasal septum. TECHNICAL DOCUMENTATION: JOB ID: [id number] Quality ID # [id number]: Final reports with documentation of one or more dose reduction techniques (e.g., Au tomated exposure control, adjustment of the mA and/or kV according to patient size, use of iterative reconstruction technique) 2010 [employer]- All Rights Reserved Reading location - IP/workstation name: [email or web address]
--- NOTE | 2019-02-11 16:44 | RADIOLOGY REPORT (SQ) ---
EXAM DESCRIPTION: U/S THYROID/SFT TISS HD NECK COMPLETED DATE/TIME: 02/11/2019 2:02 pm REASON FOR STUDY: K21.9 GASTRO-ESOPHAGEAL REFLUX DISEASE WITHOUT ESOPHAGITIS K21.9 GASTRO-ESOPHAGEA L REFLUX DISEASE WITHOUT ESOPHAGITIS J34.3 HYPERTROPHY OF NASAL TURBINATES COMPARISON: None. TECHNIQUE: Dynamic and static merritt-scale images acquired of the thyroid gland. Selected additional c olor/power Doppler images recorded. All images stored to PACS. LIMITATIONS: None. FINDINGS: RIGHT LOBE: The right lobe of the thyroid gland measures 5.1 x 2.7 x 1.7 cm and its echote xture is heterogeneous. There are no solid or cystic masses. LEFT LOBE: The left lobe of the thyroid gland measures 5.4 x 2.4 x 2.3 cm and its echotexture is hete rogeneous. Within the superior pole of the lobe there is a cystic, hypoechoic, round lesion with ill -defined margins and no internal color Doppler flow or calcifications that measures 0.5 x 0.5 x 0.4 c m cystic lesion. ISTHMUS: The isthmus measures 5.1 mm in AP diameter in its echotexture is heterogeneous. Anterior to the isthmus and there is an ovoid, hypoechoic structure that measures 0.8 x 0.8 x 0.3 cm and has the appearance of a lymph node with an echogenic hilum that contains color Doppler flow. OTHER: No other finding. IMPRESSION: 1. Heterogeneous echotexture of the thyroid gland and 0.5 x 0.5 x 0.4 cm TR2 lesion in the superior pole of the left lobe. 2. Probable nonenlarged (0.8 x 0.8 x 0.3 cm) lymph node anterior to the isthmus of the thyroid gland . TECHNICAL DOCUMENTATION: JOB ID: [id number] [employer]- All Rights Reserved Reading location - IP/workstation name: [email or web address]
== END ==
LOC: RAD 12:52
PROVIDERS: ATTEND Otolaryngology
DX: K21.9 Gastro-esophageal reflux disease without esophagitis (principal); J34.3 Hypertrophy of nasal turbinates
CPT/HCPCS: 70486; 76536

== ENCOUNTER → 2019-02-27 | Outpatient (CLI) | payer BC, OTHER | LOC: OD 11:13 | PROVIDERS: ATTEND Otolaryngology | DX: J30.9 Allergic rhinitis, unspecified (principal) | CPT/HCPCS: 36415; 82785; 86003 ==

== ENCOUNTER → 2019-06-21 | Outpatient (CLI) | payer BC, OTHER ==
--- NOTE | 2019-06-21 18:29 | RADIOLOGY REPORT (SQ) ---
EXAM DESCRIPTION: VENOUS UNILATERAL LOWER COMPLETED DATE/TIME: 06/21/2019 6:08 pm REASON FOR STUDY: LLE SWELLING I82.412 ACUTE EMBOLISM AND THROMBOSIS OF LEFT FEMORAL VEIN COMPARISON: 11/21/2017 TECHNIQUE: Dynamic and static merritt scale and color images acquired of the left leg venous system. Se lected spectral images acquired with additional compression and augmentation maneuvers. The contralat eral common femoral vein and saphenofemoral junction were also imaged. Images stored on PACS. LIMITATIONS: None. FINDINGS: COMMON FEMORAL: Normal phasicity, compression and augmentation. No visualized echogenic ma terial on merritt scale. No defects on color images. FEMORAL: Normal compression and augmentation. No visualized echogenic material on merritt scale. No defe cts on color images. POPLITEAL: Normal compression, augmentation. No visualized echogenic material on merritt scale. No defec ts on color images. CALF VESSELS: Normal compression, augmentation. No visualized echogenic material on merritt scale. No de fects on color images. GSV and SSV: Normal compression, augmentation. No visualized echogenic material on merritt scale. No def ects on color images. ANY DEEP VENOUS INSUFFICIENCY: Not evaluated. ANY EVIDENCE OF POPLITEAL CYST: No. OTHER: Echogenic scarring. CONTRALATERAL COMMON FEMORAL VEIN AND SAPHENOFEMORAL JUNCTION: Normal phasicity, compression and augmentation. No visualized echogenic material on merritt scale. No de fects on color images. IMPRESSION: No acute DVT or SVT. Scarring in the femoral veins. TECHNICAL DOCUMENTATION: JOB ID: [id number] [employer]- All Rights Reserved Reading location - IP/workstation name: [email or web address]
== END ==
LOC: SP 16:45
PROVIDERS: ATTEND Physician Assistant Medical
DX: I82.412 Acute embolism and thrombosis of left femoral vein (principal); M79.89 Other specified soft tissue disorders
CPT/HCPCS: 93971

== ENCOUNTER 2019-08-21 14:54 | Emergency (ER) | payer BC ==
--- NOTE | 2019-08-21 15:30 | ER Document Report ---
ED Medical Screen (RME) - General Chief Complaint: Vision Problem Stated Complaint: BLURRED VISION Time Seen by Provider: 08/21/19 15:21 Primary Care Provider: BEAR THORPE PA-C [Primary Care Provider] - Follow up as needed Mode of Arrival: Ambulatory Information source: Patient Notes: 53-year-old male patient presenting to the emergency department from home with complaints of blurred and double vision in the left eye that started yesterday. Patient has a history of factor V Leiden, pulmonary embolism, deep vein thrombosis, lupus and Graves' disease. Patient recently stopped taking his medication for Graves' disease as per the advice of his doctor. He is on Xarelto. He was started on antibiotics for a sinus infection by his primary care yesterday. He is currently complaining of pain to the left tenriism area and pressure behind his eye. I have greeted and performed a rapid initial assessment of this patient. A comprehensive ED assessment and evaluation of the patient, analysis of test results and completion of the medical decision making process will be conducted by additional ED providers. I have specifically instructed the patient or family members with the patient to immediately return to any nursing staff should anything change in the patient's condition or with their chief complaint. TRAVEL OUTSIDE OF THE [place] IN LAST 30 DAYS: No - Related Data Allergies/Adverse Reactions: acetaminophen [From Percocet] Adverse Reaction (Verified 08/21/19 15:16) oxycodone [From Percocet] Adverse Reaction (Verified 08/21/19 15:16) Home Medications: zarelto, lisinopril, prozac, prilosec, bactrim, tramadol Past Medical History - Social History Chew tobacco use (# tins/day): No Frequency of alcohol use: Rare Drug Abuse: None - Past Medical History Cardiac Medical History: Reports: Hx Hypertension Denies: Hx Coronary Artery Disease, Hx Heart Attack Pulmonary Medical History: Denies: Hx Asthma - has deviated septum, Hx Bronchitis, Hx COPD, Hx Pneumonia Neurological Medical History: Denies: Hx Cerebrovascular Accident, Hx Seizures Endocrine Medical History: Reports: Hx Hyperthyroidism Renal/ Medical History: Denies: Hx Peritoneal Dialysis Musculoskeltal Medical History: Denies Hx Arthritis Past Surgical History: Reports: Hx Orthopedic Surgery - 2016 - Immunizations Hx Diphtheria, Pertussis, Tetanus Vaccination: No - UNSURE Physical Exam - Vital signs Vitals: Temp Pulse Resp BP Pulse Ox 97.7 F 65 18 188/96 H 97 08/21/19 14:59 08/21/19 14:59 08/21/19 14:59 08/21/19 14:59 08/21/19 14:59 Course - Vital Signs Vital signs: Temp Pulse Resp BP Pulse Ox 97.7 F 65 18 188/96 H 97 08/21/19 14:59 08/21/19 14:59 08/21/19 14:59 08/21/19 14:59 08/21/19 14:59 Doctor's Discharge - Discharge Referrals: BEAR THORPE, PAJaniceC [Primary Care Provider] - Follow up as needed
--- NOTE | 2019-08-21 15:47 | RADIOLOGY REPORT (SQ) ---
EXAM DESCRIPTION: CT HEAD WITHOUT IMAGES COMPLETED DATE/TIME: 08/21/2019 3:36 pm REASON FOR STUDY: Blurred and double vision on left COMPARISON: 10/03/2017 TECHNIQUE: Axial images acquired through the brain without intravenous contrast. Images reviewed wi th bone, brain and subdural windows. Additional sagittal and coronal reconstructions were generated. Images stored on PACS. All CT scanners at this facility use dose modulation, iterative reconstruction, and/or weight based d osing when appropriate to reduce radiation dose to as low as reasonably achievable (ALARA). [facility]: Dose Right [facility]: CareDose [facility]: Dose Right [facility]: Teradose 4D [facility]: Fanmode RADIATION DOSE: CT Rad equipment meets quality standard of care and radiation dose reduction techniq ues were employed. CTDIvol: 53.2 mGy. DLP: 1044 mGy-cm. mGy. LIMITATIONS: None. FINDINGS: VENTRICLES: Normal size and contour. CEREBRUM: No masses. No hemorrhage. No midline shift. No evidence for acute infarction. Normal gra y/white matter differentiation. No areas of low density in the white matter. CEREBELLUM: No masses. No hemorrhage. No alteration of density. No evidence for acute infarction. EXTRAAXIAL SPACES: No fluid collections. No masses. ORBITS AND GLOBE: No intra- or extraconal masses. Normal contour of globe without masses. CALVARIUM: No fracture. PARANASAL SINUSES: No fluid or mucosal thickening. SOFT TISSUES: No mass or hematoma. OTHER: No other significant finding. IMPRESSION: NO ACUTE INTRACRANIAL IMAGING FINDINGS. EVIDENCE OF ACUTE STROKE: NO. COMMENT: Quality ID # [id number]: Final reports with documentation of one or more dose reduction techniques (e.g., Automated exposure control, adjustment of the mA and/or kV according to patient size, use of iterative reconstruction technique) TECHNICAL DOCUMENTATION: JOB ID: [id number] 2010 [employer]- All Rights Reserved Reading location - IP/workstation name: [email or web address]
[2019-08-21] MEDS ORDERED: TETRACAINE HCL 0.5% OPH SOLN 4 ML OS ONE (16:40)
--- NOTE | 2019-08-21 16:50 | ER Document Report ---
ED General - General Chief Complaint: Vision Problem Stated Complaint: BLURRED VISION Time Seen by Provider: 08/21/19 15:21 Primary Care Provider: BEAR THORPE PA-C [ALLIED HEALTH PROFESSIONAL] - Follow up as needed Mode of Arrival: Ambulatory Notes: 53-year-old male presents emergency department complaining of blurry vision to the left eye and pain to the left eye and hinduism since yesterday. States that yesterday the pain radiated from the left side of his neck to his left eye and now it is just in his hinduism. States that the vision is blurry, states that he has some double vision when both eyes are open but also some double vision when just the left eye is open at that the images are crooked. Complains that his depth perception is off as well. Denies any trauma to the eye, denies any foreign body. Patient also complains of left arm pain and he feels like he may have some swelling, he has a history of multiple DVTs and PEs, has a history of factor V Leiden deficiency. Patient is concerned he may have developed a DVT in his left arm. Patient also complains of increasing fatigue over the past 6 months since he came off of his medications for Graves' disease, states that she has noticed he is talking like he has a thick tongue for the past week. She is concerned his Graves' disease may be acting up again. TRAVEL OUTSIDE OF THE [place] IN LAST 30 DAYS: No - Related Data Allergies/Adverse Reactions: acetaminophen [From Percocet] Adverse Reaction (Verified 08/21/19 15:16) oxycodone [From Percocet] Adverse Reaction (Verified 08/21/19 15:16) Home Medications: zarelto, lisinopril, prozac, prilosec, bactrim, tramadol Past Medical History - General Information source: Patient - Social History Smoking Status: Never Smoker Chew tobacco use (# tins/day): No Frequency of alcohol use: Rare Drug Abuse: None Family History: None Patient has suicidal ideation: No Patient has homicidal ideation: No - Past Medical History Cardiac Medical History: Reports: Hx Hypertension Denies: Hx Coronary Artery Disease, Hx Heart Attack Pulmonary Medical History: Denies: Hx Asthma - has deviated septum, Hx Bronchitis, Hx COPD, Hx Pneumonia Neurological Medical History: Denies: Hx Cerebrovascular Accident, Hx Seizures Endocrine Medical History: Reports: Hx Hyperthyroidism Renal/ Medical History: Denies: Hx Peritoneal Dialysis Musculoskeletal Medical History: Denies Hx Arthritis Past Surgical History: Reports: Hx Orthopedic Surgery - 2016 - Immunizations Hx Diphtheria, Pertussis, Tetanus Vaccination: No - UNSURE Review of Systems - Review of Systems Constitutional: No symptoms reported EENT: See HPI, Eye pain, Blurred vision, Double vision. denies: Ear pain, Ear discharge Cardiovascular: Edema - Small left arm swelling. Respiratory: No symptoms reported Gastrointestinal: Vomiting - 1 Week ago. Completely resolved. Genitourinary: No symptoms reported Musculoskeletal: See HPI - Left arm pain, small swelling. Neurological/Psychological: See HPI - Left eye vision changes. -: Yes All other systems reviewed and negative Physical Exam - Vital signs Vitals: Temp Pulse Resp BP Pulse Ox 97.7 F 65 18 188/96 H 97 08/21/19 14:59 08/21/19 14:59 08/21/19 14:59 08/21/19 14:59 08/21/19 14:59 Interpretation: Hypertensive - Notes Notes: GENERAL: Alert, interacts well. No acute distress. HEAD: Normocephalic, atraumatic. Left hinduism is tender to palpation, no vesicles, no enlarged temporal artery. EYES: Pupils equal, round and reactive to light, extraocular movements intact. ENT: Oral mucosa moist, tongue midline. Funduscopic exam unremarkable bila terally, good blood flow, normal cup-to-disc ratio, venous pulsations noted. Slit lamp exam unremarkable, no fluorescein uptake, no cell and flare in the anterior chamber. IOP 16 in the right eye, IOP 17 in the left eye. NECK: Full range of motion, supple, trachea midline. LUNGS: Clear to auscultation bilaterally, no wheezes, rales or rhonchi, no respiratory distress. HEART: Regular rate and rhythm, no murmurs, gallops, rubs. ABDOMEN: Soft, nontender, nondistended, bowel sounds present in all 4 quadrants. EXTREMITIES: Moves all 4 extremities spontaneously, no edema, radial and dorsalis pedis pulses 2/4 bilaterally. No cyanosis. NEUROLOGICAL: Alert and oriented x3, normal speech. PSYCH: Normal mood, normal affect. SKIN: Warm, Dry, normal turgor, no rashes or lesions noted. Specifically no vesicular lesion noted to the left side of the face. Course - Re-evaluation Re-evalutation: 08/21/19 20:05 CBC unremarkable, CMP unremarkable, ESR and CRP are all normal, TSH, T3 and T4 are all negative, urinalysis unremarkable, venous Doppler of the left upper extremity was ordered given his history of multiple DVTs and factor V Leiden deficiency and his complaint of the arm feeling swollen, and painful, this was negative, CT scan of the head does not show any acute process, there is also no sinus disease. I do not have a specific cause for his change in vision although it is reassuring that his visual acuity is remarkably normal. Partly through his visit he now states that the double vision resolves when he closes his right eye but is there when he has both eyes open. This is interesting because initially he was describing monocular diplopia now he is describing binocular diplopia. I did want to get an MRI to rule out an ischemic process that might be causing this visual abnormality, unfortunately MRI is not working and will not start working until tomorrow. I will put in an order for an outpatient MRI to be performed. Discussed with patient and that this may need to be followed up by primary care physician as it is possible that they may need preauthorization for this. It will not be ordered tonight by sending him to another facility as he is outside of the 24-hour window for clot retrieval if this were stroke also there is no evidence of large vessel occlusion, this would be more likely to be a small infarct possibly even lacunar infarct with no intervention. I did discuss the case with Dr. Chao the credentials specialist on-call who agrees to follow-up with the patient tomorrow morning and has no further tests that he would suggest doing this evening. As the patient does not actually have any evidence of sinus disease on his CAT scan at this time I am advising the patient to stop taking the antibiotics that were prescribed for sinus disease by his primary care physician yesterday. - Vital Signs Vital signs: Temp Pulse Resp BP Pulse Ox 97.7 F 63 18 173/112 H 96 08/21/19 19:33 08/21/19 19:33 08/21/19 19:33 08/21/19 19:39 08/21/19 19:33 - Laboratory Result Diagrams: 08/21/19 17:00 08/21/19 17:00 Laboratory results interpreted by me: 08/21/19 17:00 RDW 14.2 H Discharge - Discharge Clinical Impression: Blurry vision, left eye, Diplopia, Left-sided headache, Graves disease Hypertension Qualifiers: Hypertension type: essential hypertension Qualified Code(s): I10 - Essential (primary) hypertension Condition: Stable Disposition: HOME, SELF-CARE Forms: Follow-Up Radiology Testing Referrals: BEAR THORPE PA-C [ALLIED HEALTH PROFESSIONAL] - Follow up as needed MORENO MAHAJAN DO [ACTIVE STAFF] - Follow up as needed (Call office tomorrow morning at 8 AM to find out when they can work you in tomorrow.)
[2019-08-21 17:16] LABS: ABSOLUTE EOSINOPHILS # (AUTO) 0.1 10^3/uL (0.0-0.6); ABSOLUTE LYMPHOCYTES (AUTO) 1.7 10^3/uL (0.5-4.7); ABSOLUTE MONOCYTES (AUTO) 0.5 10^3/uL (0.1-1.4); ABSOLUTE NEUT (AUTO) 5.8 10^3/uL (1.7-8.2); BASOPHILS % (AUTO) 0.5 % (0-2); EOSINOPHILS % (AUTO) 0.8 % (0-6); HEMATOCRIT 41.1 % (37.9-51.0); HEMOGLOBIN 14.7 g/dL (13.5-17.0); LYMPHOCYTES % (AUTO) 21.4 % (13-45); MEAN CORPUSCULAR HEMOGLOBIN 30.7 pg (27.0-33.4); MEAN CORPUSCULAR HGB CONC 35.7 g/dL (32.0-36.0); MEAN CORPUSCULAR VOLUME 86 fl (80-97); MONOCYTES % (AUTO) 6.4 % (3-13); PLATELET COUNT 318 10^3/uL (150-450); RED BLOOD COUNT 4.79 10^6/uL (4.35-5.55); RED CELL DISTRIBUTION WIDTH 14.2 % (11.5-14.0); SEGMENTED NEUTROPHILS % (AUTO) 70.9 % (42-78); TOTAL CELLS COUNTED % (AUTO) 100 %; WHITE BLOOD COUNT 8.2 10^3/uL (4.0-10.5)
[2019-08-21 17:41] LABS: ALKALINE PHOSPHATASE 100 U/L (38-126); ANION GAP 6 (5-19); ASPARTATE AMINO TRANSFERASE 18 U/L (17-59); BILIRUBIN,TOTAL 0.2 mg/dL (0.2-1.3); BLOOD UREA NITROGEN 13 mg/dL (7-20); CALCIUM 9.3 mg/dL (8.4-10.2); CARBON DIOXIDE 27 mmol/L (22-30); CHLORIDE 106 mmol/L (98-107); GLUCOSE 103 mg/dL (75-110); POTASSIUM 4.1 mmol/L (3.6-5.0); TOTAL PROTEIN 7.3 g/dL (6.3-8.2)
[2019-08-21 17:44] LABS: C-REACTIVE PROTEIN < 5.0 mg/L (<10.0)
[2019-08-21 17:54] LABS: FREE T3 5.23 pg/mL (2.77-5.27); FREE T4 (FREE THYROXINE) 1.14 ng/dL (0.78-2.19)
[2019-08-21 17:57] LABS: ERYTHROCYTE SEDIMENTATION RATE 11 mm/hr (0-20)
--- NOTE | 2019-08-21 18:04 | RADIOLOGY REPORT (SQ) ---
EXAM DESCRIPTION: VENOUS UNILATERAL UPPER IMAGES COMPLETED DATE/TIME: 08/21/2019 5:53 pm REASON FOR STUDY: L arm pain swelling, h/o DVT, fact V Leiden COMPARISON: None. TECHNIQUE: Dynamic and static merritt scale and color images acquired of the left arm venous system. Se lected spectral images acquired with additional compression and augmentation maneuvers. The contralat eral subclavian vein and internal jugular vein were also imaged. Images stored on PACS. LIMITATIONS: None. FINDINGS: INTERNAL JUGULAR VEIN: Normal phasicity, compression, augmentation. No visualized echogeni c material on merritt scale. No defects on color images. Comparison opposite side normal. SUBCLAVIAN VEIN: Normal compression, augmentation. No visualized echogenic material on merritt scale. No defects on color images. AXILLARY VEIN: Normal compression, augmentation. No visualized echogenic material on merritt scale. No d efects on color images. BRACHIAL VEIN: Normal compression, augmentation. No visualized echogenic material on merritt scale. No d efects on color images. BASILIC VEIN: Normal compression, augmentation. No visualized echogenic material on merritt scale. No de fects on color images. CEPHALIC VEIN: Normal compression, augmentation. No visualized echogenic material on merritt scale. No d efects on color images. OTHER: No other significant finding. IMPRESSION: 1. NO EVIDENCE DVT OR SVT LEFT ARM. COMMENT: 1. The results of this examination were given to the patient's provider on 08/21/2019 at 17: 45 hours. TECHNICAL DOCUMENTATION: JOB ID: [id number] 2010 [employer]- All Rights Reserved Reading location - IP/workstation name: [email or web address]
[2019-08-21 18:07] LABS: THYROID STIMULATING HORMONE 1.18 uIU/mL (0.47-4.68)
[2019-08-21 18:53] LABS: APPEARANCE,URINE CLEAR; BILIRUBIN,URINE NEGATIVE (NEGATIVE); COLOR,URINE YELLOW; GLUCOSE, URINE NEGATIVE (NEGATIVE); KETONES,URINE NEGATIVE (NEGATIVE); LEUKOCYTE ESTERASE,URINE NEGATIVE (NEGATIVE); NITRITE,URINE NEGATIVE (NEGATIVE); PROTEIN,URINE NEGATIVE (NEGATIVE); URINE SPECIFIC GRAVITY 1.015; UROBILINOGEN,URINE NEGATIVE mg/dL (<2.0)
[2019-08-21] MEDS ORDERED: KETOROLAC TROMETHAMINE 60 MG/2 ML SDV IM ONE (19:31)
[2019-08-21 21:10] VITALS: BP 158/77
== END 2019-08-21 21:12 | disposition home or self-care (01) ==
LOC: ER 14:54
DX: E05.00 Thyrotoxicosis with diffuse goiter without thyrotoxic crisis or storm (principal); H53.8 Other visual disturbances; H53.2 Diplopia; H57.12 Ocular pain, left eye; I10 Essential (primary) hypertension; R51 Headache; M54.2 Cervicalgia; M79.602 Pain in left arm; M79.89 Other specified soft tissue disorders; R53.83 Other fatigue; R11.10 Vomiting, unspecified; Z88.8 Allergy status to other drugs, medicaments and biological substances; Z79.01 Long term (current) use of anticoagulants; Z79.899 Other long term (current) drug therapy
CPT/HCPCS: 99284; 96372; 36415; 84439; 84443; 85025; 85652; 86140; 80053; 81001; 84481; 93971; 70450; J1885

== ENCOUNTER → 2019-08-22 | Outpatient (CLI) | payer BC ==
--- NOTE | 2019-08-22 12:52 | RADIOLOGY REPORT (SQ) ---
EXAM DESCRIPTION: MRI HEAD COMBO IMAGES COMPLETED DATE/TIME: 08/22/2019 12:36 pm REASON FOR STUDY: H53.2 DIPLOPIA H53.2 DIPLOPIA E03.8 OTHER SPECIFIED HYPOTHYROIDISM COMPARISON: CT brain 08/21/2019 MRI brain 10/03/2017 TECHNIQUE: Multiplanar imaging includes noncontrasted T1, T2, FLAIR, diffusion with ADC map and post gadolinium contrast T1 sequences. Additional thin section axial and coronal fat-sat T2 images throug h the orbits, pre and postcontrast T1 weighted imaging through the orbits. Images stored on PACS. CONTRAST TYPE AND DOSE: 20 mL Dotarem. RENAL FUNCTION: Not indicated. ACR Type II contrast agent associated with few, if any, unconfounded cases of NSF LIMITATIONS: None. FINDINGS: ANATOMY: Benign venous angioma in the right temporal lobe, a benign anatomic variant. Pit uitary fossa normal. CSF SPACES: Normal in size and contour. No hemorrhage. CEREBRUM: Sulci and gyri normal in size and contour. Normal white matter signal on FLAIR imaging. No evidence of hemorrhage, mass, or extraaxial fluid collection. No abnormal enhancement post contrast. POSTERIOR FOSSA: No signal alteration. No hemorrhage. No edema, masses, or mass effect. Internal robert tory canals, cerebellopontine angles, mastoids normal. No enhancing lesions. No abnormal enhancement post contrast. DIFFUSION IMAGING: Negative for acute or subacute infarction. ORBITS: No masses. Globes normal. No inflammation in the intra or extraconal orbital fat. Extra ocu lar muscles, lacrimal apparatus normal. PARANASAL SINUSES: No fluid levels. Mucosa normal. IMPRESSION: NORMAL MRI OF THE BRAIN AND ORBITS WITHOUT AND WITH INTRAVENOUS GADOLINIUM CONTRAST. EVIDENCE OF ACUTE STROKE: NO. TECHNICAL DOCUMENTATION: JOB ID: [id number] 2010 [employer]- All Rights Reserved Reading location - IP/workstation name: [email or web address]
== END ==
LOC: RAD 11:36
PROVIDERS: ATTEND Ophthalmology
DX: H53.2 Diplopia (principal); E03.8 Other specified hypothyroidism
CPT/HCPCS: 70553; A9576

== ENCOUNTER → 2019-10-28 | Outpatient (CLI) | payer BC ==
--- NOTE | 2019-10-28 17:10 | RADIOLOGY REPORT (SQ) ---
EXAM DESCRIPTION: CAROTID DOPPLER IMAGES COMPLETED DATE/TIME: 10/28/2019 4:34 pm REASON FOR STUDY: DIPLOPIA H53.2 DIPLOPIA COMPARISON: None. TECHNIQUE: Grayscale ultrasound, Doppler velocity and spectra, and color Doppler images acquired of the extra-cranial carotid and vertebral arteries. Images stored on PACS. LIMITATIONS: None. FINDINGS: RIGHT CAROTID CCA Velocities: Within normal limits. ICA Velocities Peak systolic 91 cm/s. End diastolic 27 cm/s. Proximal ICA/CCA peak systolic ratio 0.93. Minimal intimal wall thickening. Spectra normal. No significant plaque. LEFT CAROTID CCA Velocities: Within normal limits. ICA Velocities Peak systolic 89 cm/s. End diastolic 37 cm/s. Proximal ICA/CCA peak systolic ratio 0.93. Minimal intimal wall thickening. Spectra normal. No significant plaque. VERTEBRAL ARTERIES: Antegrade flow. Normal waveforms. SUBCLAVIAN ARTERIES: No finding. OTHER: No other significant finding. IMPRESSION: 1. NO HEMODYNAMICALLY SIGNIFICANT STENOSIS. COMMENT: Quality ID #[id number]: Velocity criteria are extrapolated from the diameter data as defined by t he Society of Radiologists in Ultrasound Consensus Conference. Radiology 2003: 229; 340-346. TECHNICAL DOCUMENTATION: JOB ID: [id number] 2010 [employer]- All Rights Reserved Reading location - IP/workstation name: [email or web address]
--- NOTE | 2019-10-28 17:55 | RADIOLOGY REPORT (SQ) ---
EXAM DESCRIPTION: MRA HEAD WITHOUT IMAGES COMPLETED DATE/TIME: 10/28/2019 4:27 pm REASON FOR STUDY: H53.2 DIPLOPIA H53.2 DIPLOPIA COMPARISON: MRI of the head 08/22/2019 TECHNIQUE: Axial 3-D ethl-gr-fdeqba acquisition imaging performed through the brain in the area of t he [place] of [place]. Images reformatted using 3-D MIPS. LIMITATIONS: None. FINDINGS: SOURCE IMAGES: No unexpected findings on source images. No large masses. 3-D MIP: No aneurysm. No occlusions. No significant stenosis. OTHER: No other significant finding. IMPRESSION: NORMAL MRA OF THE [place] OF [place]. TECHNICAL DOCUMENTATION: JOB ID: [id number] 2010 [employer]- All Rights Reserved Reading location - IP/workstation name: [email or web address]
== END ==
LOC: RAD 14:40
PROVIDERS: ATTEND Physician Assistant
DX: H53.2 Diplopia (principal)
CPT/HCPCS: 70544; 93880

== ENCOUNTER 2020-01-08 09:05 | Inpatient (IN) | payer BC ==
[2020-01-08 10:00] LABS: VENOUS BLOOD BASE EXCESS -1.1 mmol/L; VENOUS BLOOD HCO3 24.8 mmol/L (20-32); VENOUS BLOOD PCO2 45.5 mmHg (35-63); VENOUS BLOOD PH 7.36 (7.30-7.42)
[2020-01-08] MEDS ORDERED: KETOROLAC TROMETHAMINE INJ/PF 30 MG/1 ML SDV IV ONE (10:01)
[2020-01-08] MEDS ORDERED: ONDANSETRON HCL INJ/PF 4 MG/2 ML SDV IV ONE (10:02)
[2020-01-08] MEDS ORDERED: MORPHINE SULFATE 10 MG/ML INJ IV ONE (10:02)
[2020-01-08 10:04] LABS: ABSOLUTE LYMPHOCYTES (AUTO) 0.8 10^3/uL (0.5-4.7); ABSOLUTE MONOCYTES (AUTO) 0.4 10^3/uL (0.1-1.4); ABSOLUTE NEUT (AUTO) 5.7 10^3/uL (1.7-8.2); BASOPHILS % (AUTO) 0.1 % (0-2); HEMATOCRIT 45.9 % (37.9-51.0); HEMOGLOBIN 15.8 g/dL (13.5-17.0); LYMPHOCYTES % (AUTO) 11.5 % (13-45); MEAN CORPUSCULAR HEMOGLOBIN 30.1 pg (27.0-33.4); MEAN CORPUSCULAR HGB CONC 34.4 g/dL (32.0-36.0); MEAN CORPUSCULAR VOLUME 87 fl (80-97); MONOCYTES % (AUTO) 5.8 % (3-13); PLATELET COUNT 161 10^3/uL (150-450); RED BLOOD COUNT 5.25 10^6/uL (4.35-5.55); RED CELL DISTRIBUTION WIDTH 14.6 % (11.5-14.0); SEGMENTED NEUTROPHILS % (AUTO) 82.6 % (42-78); TOTAL CELLS COUNTED % (AUTO) 100 %; WHITE BLOOD COUNT 6.9 10^3/uL (4.0-10.5)
[2020-01-08 10:06] LABS: INTERNATIONAL RATION (INR) 1.61; PROTHROMBIN TIME 19.3 SEC (11.4-15.4)
[2020-01-08 10:07] LABS: PARTIAL THROMBOPLASTIN TIME 42.2 SEC (23.5-35.8)
--- NOTE | 2020-01-08 10:12 | RADIOLOGY REPORT (SQ) ---
EXAM DESCRIPTION: CHEST SINGLE VIEW IMAGES COMPLETED DATE/TIME: 01/08/2020 9:53 am REASON FOR STUDY: sob COMPARISON: None. EXAM PARAMETERS: NUMBER OF VIEWS: One view. TECHNIQUE: Single frontal radiographic view of the chest acquired. RADIATION DOSE: NA LIMITATIONS: None. FINDINGS: LUNGS AND PLEURA: Rounded pulmonary opacifications are seen involving predominantly the lo wer lobes and in a largely peripheral distribution. No pleural effusion. No pneumothorax. MEDIASTINUM AND HILAR STRUCTURES: No masses. Contour normal. HEART AND VASCULAR STRUCTURES: Heart normal in size. Normal vasculature. BONES: No acute findings. HARDWARE: None in the chest. OTHER: No other significant finding. IMPRESSION: Findings consistent with multi lobar pneumonia. Given rounded, peripheral appearance, r ecommend consideration for atypical etiologies to include viral (COVID) in treatment planning. TECHNICAL DOCUMENTATION: JOB ID: [id number] 2010 [employer]- All Rights Reserved Reading location - IP/workstation name: [email or web address]
[2020-01-08 10:18] LABS: ALBUMIN 4.2 g/dL (3.5-5.0); ALKALINE PHOSPHATASE 97 U/L (38-126); ANION GAP 9 (5-19); ASPARTATE AMINO TRANSFERASE 47 U/L (17-59); BILIRUBIN,TOTAL 0.4 mg/dL (0.2-1.3); BLOOD UREA NITROGEN 16 mg/dL (7-20); CALCIUM 9.1 mg/dL (8.4-10.2); CARBON DIOXIDE 26 mmol/L (22-30); CHLORIDE 103 mmol/L (98-107); GLUCOSE 123 mg/dL (75-110); POTASSIUM 3.7 mmol/L (3.6-5.0); TOTAL PROTEIN 7.9 g/dL (6.3-8.2)
[2020-01-08 10:34] LABS: APPEARANCE,URINE CLEAR; BILIRUBIN,URINE NEGATIVE (NEGATIVE); COLOR,URINE YELLOW; GLUCOSE, URINE NEGATIVE (NEGATIVE); KETONES,URINE NEGATIVE (NEGATIVE); LEUKOCYTE ESTERASE,URINE NEGATIVE (NEGATIVE); NITRITE,URINE NEGATIVE (NEGATIVE); PROTEIN,URINE 30 mg/dL (NEGATIVE); UROBILINOGEN,URINE NEGATIVE mg/dL (<2.0)
[2020-01-08 10:43] LABS: A TYPE INFLUENZA AG NEGATIVE (NEGATIVE); B INFLUENZA AG NEGATIVE (NEGATIVE)
[2020-01-08 11:14] LABS: ARTERIAL BLOOD BASE EXCESS -2.1 mmol/L; ARTERIAL BLOOD FIO2 ROOM AIR; ARTERIAL BLOOD H2CO3 1.04 mmol/L (1.05-1.35); ARTERIAL BLOOD HCO3 21.7 mmol/L (20-24); ARTERIAL BLOOD O2 SATURATION 95.5 % (94-98); ARTERIAL BLOOD PCO2 34.4 mmHg (35-45); ARTERIAL BLOOD PH 7.42 (7.35-7.45); ARTERIAL BLOOD PO2 75.6 mmHg (80-100); ARTERIAL BLOOD TOTAL CO2 22.7 mmol/L (23-27)
--- NOTE | 2020-01-08 11:28 | ER Document Report ---
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 Patient started with symptoms on Monday himself having fevers to 102.0 and shortness of breath with diarrhea and vomiting and loss of taste and smell. Patient went to the health department this morning had a COVID-19 test run and upon seeing his condition there is a pushed him to contact his primary care doctor was not in so he contacted his oncologist who is following him for his Factor 5 Leiden coagulopathy. He is the one that instructed him to come directly to the emergency room. Patient stated his shortness of breath is getting more severe daily. He has only a history of PEs 2 years ago and is currently on Xarelto for that. TRAVEL OUTSIDE OF THE [place] IN LAST 30 DAYS: No - HPI Onset: Other - 5 days ago Onset/Duration: Gradual Quality of pain: Achy Severity: Severe Pain Level: 4 Associated symptoms: Chest pain, Nonproductive cough, Diarrhea, Hurts to breath, Nausea, Shortness of breath - Thank you so really good smells good Exacerbated by: Walking Relieved by: Denies Similar symptoms previously: No Recently seen / treated by doctor: Yes - Related Data Allergies/Adverse Reactions: oxycodone [From Percocet] Adverse Reaction (Verified 08/21/19 15:16) Past Medical History - Social History Smoking Status: Never Smoker Chew tobacco use (# tins/day): No Frequency of alcohol use: None Drug Abuse: None Lives with: Family Family History: None, Reviewed & Not Pertinent - Past Medical History Cardiac Medical History: Reports: Hx Hypertension Denies: Hx Coronary Artery Disease, Hx Heart Attack Pulmonary Medical History: Denies: Hx Asthma - has deviated septum, Hx Bronchitis, Hx COPD, Hx Pneumonia Neurological Medical History: Denies: Hx Cerebrovascular Accident, Hx Seizures Endocrine Medical History: Reports: Hx Hyperthyroidism Renal/ Medical History: Denies: Hx Peritoneal Dialysis Musculoskeletal Medical History: Denies Hx Arthritis Past Surgical History: Reports: Hx Orthopedic Surgery - 2016 - Immunizations Hx Diphtheria, Pertussis, Tetanus Vaccination: No - UNSURE Review of Systems - Review of Systems Constitutional: See HPI, Fever, Weakness EENT: No symptoms reported Cardiovascular: See HPI, Chest pain Respiratory: See HPI, Cough, Hurts to breathe, Short of breath Gastrointestinal: See HPI, Diarrhea, Nausea Genitourinary: No symptoms reported Male Genitourinary: No symptoms reported Musculoskeletal: No symptoms reported Skin: No symptoms reported Hematologic/Lymphatic: No symptoms reported Neurological/Psychological: No symptoms reported -: Yes All other systems reviewed and negative Physical Exam - Vital signs Vitals: Resp Pulse Ox 12 97 01/08/20 09:05 01/08/20 09:05 Interpretation: Hypertensive - Notes Notes: PHYSICAL EXAMINATION: GENERAL: Patient is a well-nourished well-developed 54-year-old male who is in mild distress on examination today. He is pale in appearance. he is struggling slightly to get a good deep breath. He is very ill-appearing HEAD: Atraumatic, normocephalic. EYES: Pupils equal round and reactive to light, extraocular movements intact, sclera anicteric, conjunctiva are normal. ENT: Nares patent, oropharynx clear without exudates. Moist mucous membranes. NECK: Normal range of motion, supple without lymphadenopathy LUNGS: Auscultation patient's lungs shows bilateral breath sounds decreased throughout worse on the right side. No wheezes noted no rhonchi is noted no rales are noted HEART: Regular rate and rhythm without murmurs ABDOMEN: Abdomen is slightly distended mild tympany noted throughout in a supine position with nonspecific tenderness to percussion. Musculoskeletal: Normal range of motion, no pitting or edema. No cyanosis. NEUROLOGICAL: Normal speech, normal gait. Normal sensory, motor exams PSYCH: Normal mood, normal affect. SKIN: Clammy, normal turgor, no rashes or lesions noted. Course - Re-evaluation Re-evalutation: 01/08/20 12:47 We have actually walked to the patient with the pulse ox on and patient dropped in the sats to 92% became dizzy. I have contacted the hospitalist for admission Dr. Goode and he has accepted admission. He however wants me to contact Dr. Barragan's office and discussed that since patient has the factor V Leiden condition the possibility of either Lovenox protocol or heparin drip. I will was able to reach Dr. Husain and she decided that heparin drip would be appropriate. We are to give the drip according to the DVT protocol but no bolus since patient is on Xarelto now hemorrhage hold his Xarelto. She also wanted to find out when he took his last dose of the Xarelto which he informs me was last night therefore we are going to give the heparin starting now in emergency room. Patient has been notified of his admission and is understanding that coming in is to his benefit. 01/08/20 14:01 01/08/20 14:03 - Vital Signs Vital signs: Temp Pulse Resp BP Pulse Ox 98.3 F 68 16 136/75 H 100 01/08/20 15:50 01/08/20 17:08 01/08/20 15:50 01/08/20 15:50 01/08/20 15:50 - Laboratory Result Diagrams: 01/08/20 09:38 01/08/20 09:38 Laboratory results interpreted by me: 01/08/20 01/08/20 01/08/20 09:38 09:38 09:38 RDW 14.6 H Lymph % (Auto) 11.5 L Seg Neutrophils % 82.6 H PT 19.3 H APTT 42.2 H Carbonic Acid ABG pCO2 ABG pO2 ABG Total CO2 Glucose 123 H Ferritin Lactate Dehydrogenase Urine Protein 01/08/20 01/08/20 01/08/20 09:38 09:38 10:28 RDW Lymph % (Auto) Seg Neutrophils % PT APTT Carbonic Acid 1.04 L ABG pCO2 34.4 L ABG pO2 75.6 L ABG Total CO2 22.7 L Glucose Ferritin 621.00 H Lactate Dehydrogenase 348 H Urine Protein 30 H Discharge - Discharge Clinical Impression: Pneumonia Qualifiers: Pneumonia type: due to unspecified organism Laterality: bilateral Lung location: unspecified part of lung Qualified Code(s): J18.9 - Pneumonia, unspecified organism Condition: Stable Disposition: ADMITTED INPATIENT Admitting Provider: Rupa (Hospitalist) Unit Admitted: Medical Floor
[2020-01-08] MEDS ORDERED: PHARMACY COMMUNICATION ORDER MC NR (12:45)
--- NOTE | 2020-01-08 12:56 | Progress Note ---
Provider Note Provider Note: Patient was discussed briefly with Les Cannon in the ED. Patient with heterozygous Factor V Leiden and has been maintained on Xarelto for DVT prophylaxis. Now with clinical COVID-19 infection after known exposure. I would recommend stopping the xarelto and 12-24 hours after the last dose, start IV heparin drip, as per protocol for DVT. This can be easily reversed with any bleeding. Because of the Factor V Leiden, I do not believe SC heparin as per typical DVT prophylaxis would be enough. I will be happy to answer any questions, but will delay seeing patient until COVID-19 symptoms resolve, unless absolutely necessary.
[2020-01-08] MEDS ORDERED: ONDANSETRON 4 MG TAB.RAPDIS PO PRN (13:03)
[2020-01-08] MEDS ORDERED: ONDANSETRON HCL INJ/PF 4 MG/2 ML SDV IV PRN (13:03)
[2020-01-08] MEDS: ACETAMINOPHEN 325 MG TABLET PO PRN (15:01)
[2020-01-08] MEDS: HEPARIN SODIUM,PORCINE/D5W 25,000 UNIT/250 ML RTUINJ IV PRN (15:08)
[2020-01-08] MEDS: DOCUSATE SODIUM 100 MG CAPSULE PO SCH (15:12)
[2020-01-08] MEDS ORDERED: REMDESIVIR (EUA) 200 MG in NORMAL SALINE 250 ML IV ONE (16:00)
[2020-01-08] MEDS ORDERED: OXYCODONE-ACETAMINOPHEN 5-325 MG TABLET PO PRN (19:36)
--- NOTE | 2020-01-08 19:49 | PDOC H&P ---
History of Present Illness Admission Date/PCP: 01/08/20 13:34 KRISTEN WARNER History of Present Illness: DOMINIQUE LEWIS is a 54 year old male past medical history significant for factor V Leiden on chronic Xarelto, HTN, HLD who presents with 5-day history of progressive fever/chills/diarrhea/shortness of breath/CONTRERAS/myalgias which he began experiencing after his also became symptomatic 5 days prior to admission. was diagnosed with coronavirus by the health department and patient was concerned that he also developed this disease. Patient came to ED directly from the health department and he was tested for coronavirus here and that test is pending. Patient admitted to the COVID unit and was started on room to severe supplemental oxygen, oncology was consulted for his factor V Leiden in the setting of hypercoagulable state of coronavirus. Dr. Rivas started patient on heparin drip and his Xarelto will be held meantime. Patient will be considered for convalescent plasma if he meets criteria for the study we are currently taking part in. Patient has agreed to receive blood products if they are necessary and potentially beneficial. Past Medical History Cardiac Medical History: Reports: Hypertension Denies: Coronary Artery Disease, Myocardial Infarction Pulmonary Medical History: Denies: Asthma - has deviated septum, Bronchitis, Chronic Obstructive Pulmonary Disease (COPD), Pneumonia Neurological Medical History: Denies: Seizures Endocrine Medical History: Reports: Hyperthyroidism Musculoskeltal Medical History: Denies: Arthritis Psychiatric Medical History: Denies: Depression Past Surgical History Past Surgical History: Reports: Orthopedic Surgery - 2016 Social History Lives with: Family Smoking Status: Never Smoker Electronic Cigarette use?: No Frequency of Alcohol Use: None Hx Recreational Drug Use: No Drugs: None Hx Prescription Drug Abuse: No - Advance Directive Resuscitation Status: Do Not Resuscitate Surrogate healthcare decision maker:: Family History Family History: None, Reviewed & Not Pertinent Parental Family History Reviewed: Yes Children Family History Reviewed: Yes Sibling(s) Family History Reviewed.: Yes Medication/Allergy Home Medications: Rivaroxaban [Xarelto] 20 mg PO DAILY 30 Days #30 tablet 07/03/17 Fluoxetine HCl [Prozac 20 mg Capsule] 40 mg PO DAILY 02/01/19 Omeprazole Magnesium [Prilosec Otc] 20 mg PO DAILY 02/01/19 Atorvastatin Calcium [Lipitor 40 mg Tablet] 40 mg PO QHS 01/08/20 Lisinopril [Prinivil 10 mg Tablet] 10 mg PO DAILY 01/08/20 Allergies/Adverse Reactions: oxycodone [From Percocet] Adverse Reaction (Verified 08/21/19 15:16) Review of Systems All systems: reviewed and no additional remarkable complaints except as stated - Review of systems per HPI, otherwise negative Physical Exam Vital Signs: Temp Pulse Resp BP Pulse Ox 98.3 F 68 16 136/75 H 100 01/08/20 15:50 01/08/20 17:08 01/08/20 15:50 01/08/20 15:50 01/08/20 15:50 Intake & Output 01/07/20 01/08/20 01/09/20 06:59 06:59 06:59 Weight 102.5 kg General appearance: PRESENT: no acute distress, obese, well-developed, well- nourished Head exam: PRESENT: atraumatic, normocephalic Eye exam: PRESENT: conjunctiva pink Mouth exam: PRESENT: moist Respiratory exam: PRESENT: rhonchi - Mild bilaterally. ABSENT: rales, wheezes Cardiovascular exam: PRESENT: RRR. ABSENT: diastolic murmur, rubs, systolic murmur GI/Abdominal exam: PRESENT: normal bowel sounds, soft. ABSENT: distended, guarding, mass, organolmegaly, rebound, tenderness Rectal exam: PRESENT: deferred Neurological exam: PRESENT: alert, awake, oriented to person, oriented to place, oriented to time, oriented to situation Psychiatric exam: PRESENT: appropriate affect, normal mood Skin exam: PRESENT: dry, intact, warm Results Laboratory Results: 01/08/20 09:38 01/08/20 09:38 01/08/20 01/08/20 01/08/20 09:38 09:38 09:38 WBC 6.9 RBC 5.25 Hgb 15.8 Hct 45.9 MCV 87 MCH 30.1 MCHC 34.4 RDW 14.6 H Plt Count 161 Seg Neutrophils % 82.6 H Carbonic Acid HCO3/H2CO3 Ratio ABG pH ABG pCO2 ABG pO2 ABG HCO3 ABG O2 Saturation ABG Base Excess VBG pH VBG pCO2 VBG HCO3 VBG Base Excess FiO2 Sodium 138.2 Potassium 3.7 Chloride 103 Carbon Dioxide 26 Anion Gap 9 BUN 16 Creatinine 0.91 Est GFR ( Amer) > 60 Glucose 123 H Lactic Acid 1.0 Calcium 9.1 Ferritin Total Bilirubin 0.4 AST 47 Alkaline Phosphatase 97 Total Protein 7.9 Albumin 4.2 Lipase 182.5 Urine Color Urine Appearance Urine pH Ur Specific [place] Urine Protein Urine Glucose (UA) Urine Ketones Urine Blood Urine Nitrite Ur Leukocyte Esterase Urine WBC (Auto) Urine RBC (Auto) 01/08/20 01/08/20 01/08/20 09:38 09:38 09:38 WBC RBC Hgb Hct MCV MCH MCHC RDW Plt Count Seg Neutrophils % Carbonic Acid HCO3/H2CO3 Ratio ABG pH ABG pCO2 ABG pO2 ABG HCO3 ABG O2 Saturation ABG Base Excess VBG pH 7.36 VBG pCO2 45.5 VBG HCO3 24.8 VBG Base Excess -1.1 FiO2 Sodium Potassium Chloride Carbon Dioxide Anion Gap BUN Creatinine Est GFR ( Amer) Glucose Lactic Acid Calcium Ferritin 621.00 H Total Bilirubin AST Alkaline Phosphatase Total Protein Albumin Lipase Urine Color YELLOW Urine Appearance CLEAR Urine pH 5.0 Ur Specific [place] 1.030 Urine Protein 30 H Urine Glucose (UA) NEGATIVE Urine Ketones NEGATIVE Urine Blood NEGATIVE Urine Nitrite NEGATIVE Ur Leukocyte Esterase NEGATIVE Urine WBC (Auto) 3 Urine RBC (Auto) 0 01/08/20 10:28 WBC RBC Hgb Hct MCV MCH MCHC RDW Plt Count Seg Neutrophils % Carbonic Acid 1.04 L HCO3/H2CO3 Ratio 20:1 ABG pH 7.42 ABG pCO2 34.4 L ABG pO2 75.6 L ABG HCO3 21.7 ABG O2 Saturation 95.5 ABG Base Excess -2.1 VBG pH VBG pCO2 VBG HCO3 VBG Base Excess FiO2 ROOM AIR Sodium Potassium Chloride Carbon Dioxide Anion Gap BUN Creatinine Est GFR ( Amer) Glucose Lactic Acid Calcium Ferritin Total Bilirubin AST Alkaline Phosphatase Total Protein Albumin Lipase Urine Color Urine Appearance Urine pH Ur Specific [place] Urine Protein Urine Glucose (UA) Urine Ketones Urine Blood Urine Nitrite Ur Leukocyte Esterase Urine WBC (Auto) Urine RBC (Auto) 01/08/20 09:38 Troponin I < 0.012 Impressions: Chest X-Ray 01/08/20 09:29 IMPRESSION: Findings consistent with multi lobar pneumonia. Given rounded, peripheral appearance, recommend consideration for atypical etiologies to include viral (COVID) in treatment planning. Assessment and Plan - Diagnosis (1) Pneumonia due to COVID-19 virus Is this a current diagnosis for this admission?: Yes Plan: 5 days of fever/chills/diarrhea/shortness of breath/CONTRERAS/myalgias, already tested positive for coronavirus COVID testing here pending Start Imuran does appear Contact and respiratory precautions, moved to COVID unit Supplemental oxygen to maintain oxygen saturation greater than or equal to 94% Consider convalescent plasma if patient worsens and/or meets criteria for the study and he consents to these blood products Vitamin/supplements (2) Acute hypoxemic respiratory failure due to COVID-19 Is this a current diagnosis for this admission?: Yes Plan: Some oxygen to maintain saturation greater than equal to 94% Bronchial hygiene Incentive spirometer (3) HLD (hyperlipidemia) Is this a current diagnosis for this admission?: Yes Plan: Statin continued (4) Factor V Leiden Is this a current diagnosis for this admission?: Yes Plan: Takes chronic Xarelto, held here Hematology consulted, placed patient on heparin drip (5) Chronic anticoagulation Is this a current diagnosis for this admission?: Yes (6) Hypertension Qualifiers: Hypertension type: essential hypertension Qualified Code(s): I10 - Essential (primary) hypertension Is this a current diagnosis for this admission?: Yes Plan: Home lisinopril continued - Time Time Spent with patient: 35 or more minutes Medications reviewed and adjusted accordingly: Yes Anticipated Discharge Disposition: Home, Self Care Anticipated Discharge Timeframe: within 72 hours - Inpatient Certification Based on my medical assessment, after consideration of the patient's comorbidities, presenting symptoms, or acuity I expect that the services needed warrant INPATIENT care.: Yes I certify that my determination is in accordance with my understanding of Medicare's requirements for reasonable and necessary INPATIENT services [42 CFR 412.3e].: Yes Medical Necessity: Significant Comorbidiites Make Outpatient Treatment Too Risky, Need Close Monitoring Due to Risk of Patient Decompensation, Need for IV Antibiotics, Risk of Complication if Not Cared For in Hospital, Risk of Diagnosis Which Will Require Inpatient Eval/Care/Monitoring
--- NOTE | 2020-01-08 19:49 | ADVANCED CARE ---
- Diagnosis (1) Pneumonia due to COVID-19 virus Diagnosis Current: Yes (2) Acute hypoxemic respiratory failure due to COVID-19 Diagnosis Current: Yes (3) HLD (hyperlipidemia) Diagnosis Current: Yes (4) Factor V Leiden Diagnosis Current: Yes (5) Chronic anticoagulation Diagnosis Current: Yes (6) Hypertension Diagnosis Current: Yes Attendance: Patient Resuscitation Status: Do Not Resuscitate Discussion: All aspects of code status discussed with patient/POA including cardioversion, chest compressions, and intubation and the patient/POA indicated they wish to be DNR/DNI MPOA is designated as: Time Spent: Greater than 16 minutes
[2020-01-08] MEDS: ATORVASTATIN CALCIUM 40 MG TABLET PO SCH (21:11)
[2020-01-08] MEDS: CHOLECALCIFEROL (D3) 1,000 UNIT (25 MCG) TABLET PO SCH (21:11)
[2020-01-08] MEDS: ZINC SULFATE 220 MG CAPSULE PO SCH (21:11)
[2020-01-08] MEDS: ASCORBIC ACID 500 MG TABLET PO SCH (21:11)
[2020-01-09] MEDS: HEPARIN SODIUM,PORCINE/D5W 25,000 UNIT/250 ML RTUINJ IV PRN (05:44)
[2020-01-09 06:59] LABS: ABSOLUTE MONOCYTES (AUTO) 0.3 10^3/uL (0.1-1.4); ABSOLUTE NEUT (AUTO) 4.5 10^3/uL (1.7-8.2); BASOPHILS % (AUTO) 0.1 % (0-2); EOSINOPHILS % (AUTO) 0.1 % (0-6); HEMATOCRIT 41.2 % (37.9-51.0); HEMOGLOBIN 14.1 g/dL (13.5-17.0); LYMPHOCYTES % (AUTO) 17.1 % (13-45); MEAN CORPUSCULAR HEMOGLOBIN 29.9 pg (27.0-33.4); MEAN CORPUSCULAR HGB CONC 34.3 g/dL (32.0-36.0); MEAN CORPUSCULAR VOLUME 87 fl (80-97); MONOCYTES % (AUTO) 4.9 % (3-13); PLATELET COUNT 152 10^3/uL (150-450); RED BLOOD COUNT 4.73 10^6/uL (4.35-5.55); RED CELL DISTRIBUTION WIDTH 14.6 % (11.5-14.0); SEGMENTED NEUTROPHILS % (AUTO) 77.8 % (42-78); TOTAL CELLS COUNTED % (AUTO) 100 %; WHITE BLOOD COUNT 5.7 10^3/uL (4.0-10.5)
[2020-01-09 08:53] LABS: ANION GAP 9 (5-19); BLOOD UREA NITROGEN 16 mg/dL (7-20); CALCIUM 8.7 mg/dL (8.4-10.2); CARBON DIOXIDE 23 mmol/L (22-30); CHLORIDE 109 mmol/L (98-107); GLUCOSE 109 mg/dL (75-110); PHOSPHORUS 2.7 mg/dL (2.5-4.5)
[2020-01-09] MEDS ORDERED: ONDANSETRON 4 MG TAB.RAPDIS PO PRN (09:00)
[2020-01-09] MEDS ORDERED: ONDANSETRON HCL INJ/PF 4 MG/2 ML SDV IV PRN (09:00)
[2020-01-09] MEDS: ASCORBIC ACID 500 MG TABLET PO SCH ×2 (09:33→17:28)
[2020-01-09] MEDS: CHOLECALCIFEROL (D3) 1,000 UNIT (25 MCG) TABLET PO SCH ×2 (09:33→17:28)
[2020-01-09] MEDS: DEXAMETHASONE SOD PHOSPHATE INJ 4 MG/1 ML VIAL IV SCH (09:34)
[2020-01-09] MEDS: ZINC SULFATE 220 MG CAPSULE PO SCH ×2 (09:34→17:29)
[2020-01-09] MEDS: FLUOXETINE HCL 20 MG CAPSULE PO SCH (09:34)
[2020-01-09] MEDS: LISINOPRIL 10 MG TABLET PO SCH (09:34)
[2020-01-09] MEDS: PANTOPRAZOLE SODIUM 20 MG TABLET.DR PO SCH (09:35)
[2020-01-09] MEDS: ACETAMINOPHEN 325 MG TABLET PO PRN (09:44)
--- NOTE | 2020-01-09 09:49 | EKG REPORT ---
SEVERITY:- OTHERWISE NORMAL ECG - SINUS RHYTHM BORDERLINE LEFT AXIS DEVIATION : Confirmed by: Jose Cadena 09-Jan-2020 09:49:10
[2020-01-09] MEDS ORDERED: PANTOPRAZOLE SODIUM 20 MG TABLET.DR PO SCH (10:00)
[2020-01-09] MEDS: REMDESIVIR (EUA) 100 MG in NORMAL SALINE 250 ML IV SCH (10:18)
[2020-01-09] MEDS ORDERED: BUTALB/ACETAMINOPHEN/CAFFEINE 1 TAB EACH PO ONE (11:00)
--- NOTE | 2020-01-09 12:46 | PDOC PROGRESS REPORT ---
Subjective Progress Note for:: 01/09/20 Subjective:: Patient admitted with highly suspicious symptoms for COVID infection pneumonia. Acute hypoxemic respiratory failure. 01/09/2020 Patient is continued on remdesivir for a total of 5 days. I noted today that the coronavirus task force in [place] is planning to rescind the emergency approval of convalescent plasma and I explained this to the patient and informed him why this might not be a treatment option in the near future. He states he is doing okay today but having intermittent high fevers. His labs have been reviewed and they are stable so far. Influenza test in the ER was negative. Patient has no new complaints today other than high fevers and shortness of breath. Reason For Visit: SUSPECTED COVID ASSOCIATED PNEUMONIA,ACUTE Physical Exam Vital Signs: Temp Pulse Resp BP Pulse Ox 101.2 F H 71 18 128/73 H 96 01/09/20 10:55 01/09/20 10:55 01/09/20 10:55 01/09/20 10:55 01/09/20 10:55 Intake & Output 01/08/20 01/09/20 01/10/20 06:59 06:59 06:59 Intake Total 905 79 Balance 905 79 Weight 102.5 kg General appearance: PRESENT: no acute distress, well-developed, well-nourished Head exam: PRESENT: atraumatic, normocephalic Eye exam: PRESENT: conjunctiva pink Mouth exam: PRESENT: moist Respiratory exam: PRESENT: rhonchi - Very mild. ABSENT: crackles, rales, wheezes Cardiovascular exam: PRESENT: RRR. ABSENT: diastolic murmur, rubs, systolic murmur GI/Abdominal exam: PRESENT: normal bowel sounds, soft. ABSENT: distended, guarding, mass, organolmegaly, rebound, tenderness Neurological exam: PRESENT: alert, awake, oriented to person, oriented to place, oriented to time, oriented to situation Psychiatric exam: PRESENT: appropriate affect, normal mood Skin exam: PRESENT: dry, intact, warm Results Laboratory Results: 01/09/20 06:36 01/09/20 06:36 01/09/20 01/09/20 06:36 06:36 WBC 5.7 RBC 4.73 Hgb 14.1 Hct 41.2 MCV 87 MCH 29.9 MCHC 34.3 RDW 14.6 H Plt Count 152 Seg Neutrophils % 77.8 Sodium 140.7 Potassium 4.0 Chloride 109 H Carbon Dioxide 23 Anion Gap 9 BUN 16 Creatinine 0.78 Est GFR ( Amer) > 60 Glucose 109 Calcium 8.7 Phosphorus 2.7 Magnesium 2.2 01/08/20 09:38 Troponin I < 0.012 Impressions: Chest X-Ray 01/08/20 09:29 IMPRESSION: Findings consistent with multi lobar pneumonia. Given rounded, peripheral appearance, recommend consideration for atypical etiologies to include viral (COVID) in treatment planning. Assessment and Plan - Diagnosis (1) Pneumonia due to COVID-19 virus Is this a current diagnosis for this admission?: Yes Plan: 5 days of fever/chills/diarrhea/shortness of breath/CONTRERAS/myalgias, already tested positive for coronavirus COVID testing here pending Started remdesivir on admission for 5-day course Contact and respiratory precautions, moved to COVID unit Supplemental oxygen to maintain oxygen saturation greater than or equal to 94% Consider convalescent plasma treatment is a possibility if he worsens, but approval for this treatment is in jeopardy of being discontinued by [place] gov ernment Vitamin/supplements (2) Acute hypoxemic respiratory failure due to COVID-19 Is this a current diagnosis for this admission?: Yes Plan: Some oxygen to maintain saturation greater than equal to 94% Bronchial hygiene Incentive spirometer Relatively stable thus far (3) HLD (hyperlipidemia) Is this a current diagnosis for this admission?: Yes (4) Factor V Leiden Is this a current diagnosis for this admission?: Yes Plan: Takes chronic Xarelto, held here Hematology consulted, placed patient on heparin drip 01/09/2020 Tolerating heparin drip well, no signs of bleeding (5) Chronic anticoagulation Is this a current diagnosis for this admission?: Yes (6) Hypertension Qualifiers: Hypertension type: essential hypertension Qualified Code(s): I10 - Essential (primary) hypertension Is this a current diagnosis for this admission?: Yes - Time Time Spent with patient: 35 or more minutes Medications reviewed and adjusted accordingly: Yes Anticipated Discharge Disposition: Home, Self Care Anticipated Discharge Timeframe: within 72 hours - Inpatient Certification Based on my medical assessment, after consideration of the patient's comorbidities, presenting symptoms, or acuity I expect that the services needed warrant INPATIENT care.: Yes I certify that my determination is in accordance with my understanding of Medicare's requirements for reasonable and necessary INPATIENT services [42 CFR 412.3e].: Yes Medical Necessity: Significant Comorbidiites Make Outpatient Treatment Too Risky, Need Close Monitoring Due to Risk of Patient Decompensation, Need for IV Antibiotics, Risk of Complication if Not Cared For in Hospital, Risk of Diagnosis Which Will Require Inpatient Eval/Care/Monitoring
[2020-01-09] MEDS: ATORVASTATIN CALCIUM 40 MG TABLET PO SCH (21:31)
[2020-01-10] MEDS: HEPARIN SODIUM,PORCINE/D5W 25,000 UNIT/250 ML RTUINJ IV PRN (01:51)
[2020-01-10] MEDS: BUTALB/ACETAMINOPHEN/CAFFEINE 1 TAB EACH PO PRN ×2 (02:04→10:15)
[2020-01-10] MEDS: PANTOPRAZOLE SODIUM 20 MG TABLET.DR PO SCH (05:19)
[2020-01-10 05:41] LABS: ABSOLUTE LYMPHOCYTES (AUTO) 0.3 10^3/uL (0.5-4.7); ABSOLUTE MONOCYTES (AUTO) 0.2 10^3/uL (0.1-1.4); ABSOLUTE NEUT (AUTO) 2.2 10^3/uL (1.7-8.2); BASOPHILS % (AUTO) 0.1 % (0-2); HEMATOCRIT 43.2 % (37.9-51.0); HEMOGLOBIN 14.9 g/dL (13.5-17.0); LYMPHOCYTES % (AUTO) 11.4 % (13-45); MEAN CORPUSCULAR HEMOGLOBIN 30.1 pg (27.0-33.4); MEAN CORPUSCULAR HGB CONC 34.5 g/dL (32.0-36.0); MEAN CORPUSCULAR VOLUME 87 fl (80-97); MONOCYTES % (AUTO) 6.8 % (3-13); PLATELET COUNT 165 10^3/uL (150-450); RED BLOOD COUNT 4.97 10^6/uL (4.35-5.55); RED CELL DISTRIBUTION WIDTH 14.8 % (11.5-14.0); SEGMENTED NEUTROPHILS % (AUTO) 81.7 % (42-78); TOTAL CELLS COUNTED % (AUTO) 100 %; WHITE BLOOD COUNT 2.6 10^3/uL (4.0-10.5)
[2020-01-10 05:51] LABS: ANION GAP 12 (5-19); BLOOD UREA NITROGEN 22 mg/dL (7-20); CALCIUM 9.4 mg/dL (8.4-10.2); CARBON DIOXIDE 23 mmol/L (22-30); CHLORIDE 104 mmol/L (98-107); GLUCOSE 160 mg/dL (75-110); POTASSIUM 4.5 mmol/L (3.6-5.0)
[2020-01-10] MEDS: ASCORBIC ACID 500 MG TABLET PO SCH ×2 (10:06→18:09)
[2020-01-10] MEDS: ZINC SULFATE 220 MG CAPSULE PO SCH ×2 (10:06→18:09)
[2020-01-10] MEDS: LISINOPRIL 10 MG TABLET PO SCH (10:06)
[2020-01-10] MEDS: CHOLECALCIFEROL (D3) 1,000 UNIT (25 MCG) TABLET PO SCH ×2 (10:06→18:09)
[2020-01-10] MEDS: FLUOXETINE HCL 20 MG CAPSULE PO SCH (10:07)
[2020-01-10] MEDS: DEXAMETHASONE SOD PHOSPHATE INJ 4 MG/1 ML VIAL IV SCH (10:08)
[2020-01-10 12:45] LABS: APPEARANCE,URINE CLEAR; BILIRUBIN,URINE NEGATIVE (NEGATIVE); COLOR,URINE YELLOW; GLUCOSE, URINE NEGATIVE (NEGATIVE); KETONES,URINE NEGATIVE (NEGATIVE); LEUKOCYTE ESTERASE,URINE NEGATIVE (NEGATIVE); NITRITE,URINE NEGATIVE (NEGATIVE); PROTEIN,URINE NEGATIVE (NEGATIVE); URINE SPECIFIC GRAVITY 1.026; UROBILINOGEN,URINE NEGATIVE mg/dL (<2.0)
[2020-01-10] MEDS: REMDESIVIR (EUA) 100 MG in NORMAL SALINE 250 ML IV SCH (12:53)
[2020-01-10] MEDS: DOCUSATE SODIUM 100 MG CAPSULE PO SCH (12:59)
--- NOTE | 2020-01-10 16:03 | PDOC PROGRESS REPORT ---
Subjective Subjective:: Patient admitted with highly suspicious symptoms for COVID infection pneumonia. Acute hypoxemic respiratory failure. 01/09/2020 Patient is continued on remdesivir for a total of 5 days. I noted today that the coronavirus task force in [place] is planning to rescind the emergency approval of convalescent plasma and I explained this to the patient and informed him why this might not be a treatment option in the near future. He states he is doing okay today but having intermittent high fevers. His labs have been reviewed and they are stable so far. Influenza test in the ER was negative. Patient has no new complaints today other than high fevers and shortness of breath. 01/10/2020 Severe continues, patient has been tolerating it well. Patient seems to be doing a bit better and is breathing well on room air now. Blood cultures are negative. Once he completes remdesivir 5-day course, if he remains clinically stable, he could potentially be discharged home to continue self quarantine. He has no new complaints today. Reason For Visit: SUSPECTED COVID ASSOCIATED PNEUMONIA,ACUTE Physical Exam Vital Signs: Temp Pulse Resp BP Pulse Ox 98.6 F 68 22 H 140/62 H 97 01/10/20 15:07 01/10/20 15:07 01/10/20 15:07 01/10/20 15:07 01/10/20 15:07 Intake & Output 01/09/20 01/10/20 01/11/20 06:59 06:59 06:59 Intake Total 905 500 Output Total 250 Balance 905 500 -250 Weight 102.5 kg 103.2 kg General appearance: PRESENT: no acute distress, well-developed, well-nourished Head exam: PRESENT: atraumatic, normocephalic Eye exam: PRESENT: conjunctiva pink Mouth exam: PRESENT: moist Respiratory exam: PRESENT: rhonchi - Mild. ABSENT: rales, wheezes Cardiovascular exam: PRESENT: RRR. ABSENT: diastolic murmur, rubs, systolic murmur GI/Abdominal exam: PRESENT: normal bowel sounds, soft. ABSENT: distended, guarding, mass, organolmegaly, rebound, tenderness Neurological exam: PRESENT: alert, awake, oriented to person, oriented to place, oriented to time, oriented to situation Psychiatric exam: PRESENT: appropriate affect, normal mood Skin exam: PRESENT: dry, intact, warm Results Laboratory Results: 01/10/20 04:07 01/10/20 04:07 01/10/20 01/10/20 01/10/20 04:07 04:07 08:25 WBC 2.6 L D RBC 4.97 Hgb 14.9 Hct 43.2 MCV 87 MCH 30.1 MCHC 34.5 RDW 14.8 H Plt Count 165 Seg Neutrophils % 81.7 H Sodium 138.5 Potassium 4.5 Chloride 104 Carbon Dioxide 23 Anion Gap 12 BUN 22 H Creatinine 0.71 Est GFR ( Amer) > 60 Glucose 160 H Calcium 9.4 Urine Color YELLOW Urine Appearance CLEAR Urine pH 6.0 Ur Specific [place] 1.026 Urine Protein NEGATIVE Urine Glucose (UA) NEGATIVE Urine Ketones NEGATIVE Urine Blood NEGATIVE Urine Nitrite NEGATIVE Ur Leukocyte Esterase NEGATIVE Urine WBC (Auto) 1 Urine RBC (Auto) 0 01/08/20 09:38 Troponin I < 0.012 Impressions: Chest X-Ray 01/08/20 09:29 IMPRESSION: Findings consistent with multi lobar pneumonia. Given rounded, peripheral appearance, recommend consideration for atypical etiologies to include viral (COVID) in treatment planning. Assessment and Plan - Diagnosis (1) Pneumonia due to COVID-19 virus Is this a current diagnosis for this admission?: Yes Plan: 5 days of fever/chills/diarrhea/shortness of breath/CONTRERAS/myalgias, already tested positive for coronavirus COVID testing here pending Started remdesivir on admission for 5-day course Contact and respiratory precautions, moved to COVID unit Supplemental oxygen to maintain oxygen saturation greater than or equal to 94% Consider convalescent plasma treatment is a possibility if he worsens, but approval for this treatment is in jeopardy of being discontinued by [place] government Vitamin/supplements Remdesivir course 5-day continues, tolerating it well, possibly can go home to self quarantine after this is completed if he remains clinically stable (2) Acute hypoxemic respiratory failure due to COVID-19 Is this a current diagnosis for this admission?: Yes Plan: Some oxygen to maintain saturation greater than equal to 94% Bronchial hygiene Incentive spirometer Relatively stable thus far Improved (3) HLD (hyperlipidemia) Is this a current diagnosis for this admission?: Yes (4) Factor V Leiden Is this a current diagnosis for this admission?: Yes Plan: Takes chronic Xarelto, held here Hematology consulted, placed patient on heparin drip 01/09/2020 Tolerating heparin drip well, no signs of bleeding Heparin drip continues, tolerated well, plan to restart home Xarelto at discharge (5) Chronic anticoagulation Is this a current diagnosis for this admission?: Yes (6) Hypertension Qualifiers: Hypertension type: essential hypertension Qualified Code(s): I10 - Essential (primary) hypertension Is this a current diagnosis for this admission?: Yes - Time Time Spent with patient: 35 or more minutes Medications reviewed and adjusted accordingly: Yes Anticipated Discharge Disposition: Home, Self Care Anticipated Discharge Timeframe: within 72 hours - Inpatient Certification Based on my medical assessment, after consideration of the patient's comorbidities, presenting symptoms, or acuity I expect that the services needed warrant INPATIENT care.: Yes I certify that my determination is in accordance with my understanding of Medicare's requirements for reasonable and necessary INPATIENT services [42 CFR 412.3e].: Yes Medical Necessity: Significant Comorbidiites Make Outpatient Treatment Too Risky, Need Close Monitoring Due to Risk of Patient Decompensation, Need for IV Antibiotics, Risk of Complication if Not Cared For in Hospital, Risk of Diagnosis Which Will Require Inpatient Eval/Care/Monitoring
[2020-01-10] MEDS: ATORVASTATIN CALCIUM 40 MG TABLET PO SCH (22:12)
[2020-01-10] MEDS ORDERED: NITROGLYCERIN 0.4 MG/TAB 25 TAB/BOTTLE SL PRN ×2 (23:32→23:55)
[2020-01-10] MEDS ORDERED: MORPHINE SULFATE 10 MG/ML INJ IV PRN (23:55)
--- NOTE | 2020-01-10 23:55 | Progress Note ---
Provider Note Provider Note: Critical CARE note: 01/10/2020 Critical care start time: 2255 Critical care issue: Chest pain Patient's nurse informed that he was having central chest pressure which he rated as a 10/10. An EKG was obtained stat and showed sinus bradycardia without evidence of ischemia or myocardial injury. Patient was noted to have a decrease in his pain from 10/10 to 4/10 upon hearing his EKG "looked okay". He was subsequently given sublingual nitroglycerin 0.4 mg every 5 minutes up to 3 doses. A plan for starting nitro glycerin 2% ointment 1 g every 6 hours was developed based upon whether or not the patient responded to sublingual nitroglycerin to eliminate his pain. If his pain was not relieved by nitroglycerin morphine sulfate 2 to 4 mg IV every 2 hours would be administered using a sliding scale for dosing. Additionally, based upon input provided by the nursing service, it was determined the patient could be given a "GI cocktail" if his pain did not resolve with other means. It was determined to proceed with these plans in order as listed above until an adequate response to eliminate the patient's pain had been obtained. Serial cardiac enzymes were ordered every 6 hours x3 and a cardiology consult with Dr. Downey was also ordered for the morning. Critical care end time: 4015 Total critical care time: 17 minutes
[2020-01-10] MEDS ORDERED: LIDOCAINE 2% VISCOUS SOLN 15 ML UDCUP PO PRN (23:59)
[2020-01-10] MEDS ORDERED: MAG HYDROX/AL HYDROX/SIMETH SUSP 30 ML UDCUP PO PRN (23:59)
[2020-01-11] MEDS ORDERED: MORPHINE SULFATE 10 MG/ML INJ IV PRN ×4 (00:22→00:30)
[2020-01-11 01:31] LABS: CREATINE KINASE MB 0.43 ng/mL (<4.55)
[2020-01-11 01:34] LABS: TROPONIN I < 0.012 ng/mL
[2020-01-11] MEDS: PANTOPRAZOLE SODIUM 20 MG TABLET.DR PO SCH (05:12)
[2020-01-11] MEDS: NITROGLYCERIN 2% OINTMENT 1 GM PACKET TP SCH ×3 (05:12→17:18)
[2020-01-11] MEDS: HEPARIN SODIUM,PORCINE/D5W 25,000 UNIT/250 ML RTUINJ IV PRN (05:15)
[2020-01-11 06:50] LABS: ABSOLUTE LYMPHOCYTES (AUTO) 0.6 10^3/uL (0.5-4.7); ABSOLUTE MONOCYTES (AUTO) 0.4 10^3/uL (0.1-1.4); ABSOLUTE NEUT (AUTO) 6.6 10^3/uL (1.7-8.2); BASOPHILS % (AUTO) 0.1 % (0-2); HEMATOCRIT 43.7 % (37.9-51.0); HEMOGLOBIN 14.9 g/dL (13.5-17.0); LYMPHOCYTES % (AUTO) 7.7 % (13-45); MEAN CORPUSCULAR HEMOGLOBIN 30.1 pg (27.0-33.4); MEAN CORPUSCULAR HGB CONC 34.2 g/dL (32.0-36.0); MEAN CORPUSCULAR VOLUME 88 fl (80-97); MONOCYTES % (AUTO) 5.4 % (3-13); PLATELET COUNT 216 10^3/uL (150-450); RED BLOOD COUNT 4.96 10^6/uL (4.35-5.55); RED CELL DISTRIBUTION WIDTH 14.6 % (11.5-14.0); SEGMENTED NEUTROPHILS % (AUTO) 86.8 % (42-78); TOTAL CELLS COUNTED % (AUTO) 100 %
[2020-01-11 06:56] LABS: WHITE BLOOD COUNT 7.6 10^3/uL (4.0-10.5)
[2020-01-11 07:17] LABS: CREATINE KINASE MB 0.37 ng/mL (<4.55)
[2020-01-11 07:23] LABS: TROPONIN I < 0.012 ng/mL
[2020-01-11] MEDS: HEPARIN SOD (PORCINE) 1,000 UNIT/ML 10 ML VIAL IV PRN (08:35)
[2020-01-11] MEDS: LISINOPRIL 10 MG TABLET PO SCH (10:30)
[2020-01-11] MEDS: DEXAMETHASONE SOD PHOSPHATE INJ 4 MG/1 ML VIAL IV SCH (10:30)
[2020-01-11] MEDS: CHOLECALCIFEROL (D3) 1,000 UNIT (25 MCG) TABLET PO SCH ×2 (10:30→17:13)
[2020-01-11] MEDS: ZINC SULFATE 220 MG CAPSULE PO SCH ×2 (10:30→17:13)
[2020-01-11] MEDS: REMDESIVIR (EUA) 100 MG in NORMAL SALINE 250 ML IV SCH (10:30)
[2020-01-11] MEDS: FLUOXETINE HCL 20 MG CAPSULE PO SCH (10:30)
[2020-01-11] MEDS: ASCORBIC ACID 500 MG TABLET PO SCH ×2 (10:30→17:13)
[2020-01-11] MEDS: BUTALB/ACETAMINOPHEN/CAFFEINE 1 TAB EACH PO PRN (11:01)
--- NOTE | 2020-01-11 13:10 | PDOC CONSULTATION ---
Consultation Consult Date: 01/11/20 Attending physician:: WENDY MENDOZA Provider Consulted: SELAM BEAULIEU Consult reason:: Chest pain History of Present Illness Admission Date/PCP: 01/08/20 13:34 KRISTEN WARNER Patient complains of: Chest pain History of Present Illness: DOMINIQUE LEWIS is a 54 year old male with the following active problems 1. Chronic hypercoagulable state 2. Pulmonary embolism 3. Long-term systemic anticoagulation Patient was admitted secondary to complaints of suspicious for viral pneumonia. His COVID test has come back positive. Last night patient developed acute onset chest pain which was quite severe. This responded to a GI cocktail and other measures which included sublingual nitroglycerin. Patient endorses no prior cardiac illnesses whatsoever. He does not smoke cigarettes. Presently he does not complain of chest pain or dyspnea. Following the chest pain he is EKG and cardiac biomarkers were pursued. His EKG did not show any diagnostic changes for myocardial ischemia and his cardiac biomarkers are n egative. Review of systems is positive for chest pain, he feels tired. There is no ongoing dyspnea or palpitations. Full review of systems was asked. Pertinent positives noted here in the HPI all systems appear to be negative. No familial illnesses reported to me. Past Medical History Cardiac Medical History: Reports: Hypertension Denies: Coronary Artery Disease, Myocardial Infarction Pulmonary Medical History: Denies: Asthma - has deviated septum, Bronchitis, Chronic Obstructive Pulmonary Disease (COPD), Pneumonia Neurological Medical History: Denies: Seizures Endocrine Medical History: Reports: Hyperthyroidism Musculoskeltal Medical History: Denies: Arthritis Psychiatric Medical History: Denies: Depression Past Surgical History Past Surgical History: Reports: Orthopedic Surgery - 2016 Social History Lives with: Family Smoking Status: Never Smoker Electronic Cigarette use?: No Frequency of Alcohol Use: None Hx Recreational Drug Use: No Drugs: None Hx Prescription Drug Abuse: No - Advance Directive Resuscitation Status: Do Not Resuscitate Family History Family History: None, Reviewed & Not Pertinent Parental Family History Reviewed: Yes - No familial illnesses Children Family History Reviewed: NA Sibling(s) Family History Reviewed.: NA Medication/Allergy Home Medications: Rivaroxaban [Xarelto] 20 mg PO DAILY 30 Days #30 tablet 07/03/17 Fluoxetine HCl [Prozac 20 mg Capsule] 40 mg PO DAILY 02/01/19 Omeprazole Magnesium [Prilosec Otc] 20 mg PO DAILY 02/01/19 Atorvastatin Calcium [Lipitor 40 mg Tablet] 40 mg PO QHS 01/08/20 Lisinopril [Prinivil 10 mg Tablet] 10 mg PO DAILY 01/08/20 Allergies/Adverse Reactions: oxycodone [From Percocet] Adverse Reaction (Verified 08/21/19 15:16) Review of Systems Constitutional: PRESENT: fatigue Cardiovascular: PRESENT: chest pain Respiratory: PRESENT: cough, dyspnea Musculoskeletal: PRESENT: muscle weakness Neurological: ABSENT: as per HPI, abnormal gait, abnormal movements, abnormal speech, confusion, convulsions, dizziness, focal weakness, frequent falls, lack of coordination, memory loss, numbness, paresthesias, restless legs, syncope, tingling, tremor(s), vertigo, weakness, other Physical Exam Vital Signs: Temp Pulse Resp BP Pulse Ox 98.0 F 60 16 150/81 H 95 01/11/20 09:45 01/11/20 08:39 01/11/20 08:39 01/11/20 08:39 01/11/20 08:39 Intake & Output 01/10/20 01/11/20 01/12/20 06:59 06:59 06:59 Intake Total 500 500 281 Output Total 250 Balance 500 250 281 Weight 103.2 kg 101.2 kg General appearance: PRESENT: no acute distress, cooperative, well-developed, well-nourished Head exam: PRESENT: atraumatic, normocephalic Eye exam: PRESENT: conjunctiva pink, EOMI Mouth exam: PRESENT: moist Respiratory exam: PRESENT: crackles - Very faint basal predominantly, decreased breath sounds, symmetrical Cardiovascular exam: PRESENT: RRR, +S1, +S2 Pulses: PRESENT: normal radial pulses GI/Abdominal exam: PRESENT: soft Rectal exam: PRESENT: deferred Neurological exam: PRESENT: alert, awake, oriented to person, oriented to time, oriented to situation Psychiatric exam: PRESENT: appropriate affect Skin exam: PRESENT: dry, intact, normal color Results Laboratory Results: 01/11/20 06:00 01/10/20 04:07 01/11/20 06:00 WBC 7.6 D RBC 4.96 Hgb 14.9 Hct 43.7 MCV 88 MCH 30.1 MCHC 34.2 RDW 14.6 H Plt Count 216 Seg Neutrophils % 86.8 H 01/08/20 01/11/20 01/11/20 09:38 00:40 00:40 Creatine Kinase 33 L CK-MB (CK-2) 0.43 Troponin I < 0.012 < 0.012 01/11/20 01/11/20 06:00 06:00 Creatine Kinase 28 L CK-MB (CK-2) 0.37 Troponin I < 0.012 EKG Comments: Twelve-lead EKG 01/10/2020. 2305 Sinus bradycardia, 57 bpm, no ST-T changes to suggest myocardial ischemia, baseline artifact, QTC is 433 ms Twelve-lead EKG 01/08/2020. 9:57 AM Sinus rhythm, 79 bpm, TC is 432 ms Troponin less than 0.0123 Serology COVID positive. Chest x-ray 01/08/2020 Multilobar pneumonia suggestive of COVID Impressions: Chest X-Ray 01/08/20 09:29 IMPRESSION: Findings consistent with multi lobar pneumonia. Given rounded, peripheral appearance, recommend consideration for atypical etiologies to include viral (COVID) in treatment planning. Assessment & Plan - Diagnosis (1) Chest pain Qualifiers: Chest pain type: unspecified Qualified Code(s): R07.9 - Chest pain, unspecified Is this a current diagnosis for this admission?: Yes Plan: Chest pain which was acute in its onset and probably severe which is now resolved Symptoms were probably due to pleuropericarditis or mediastinitis. Other etiologies cannot be reliably excluded. However there is no evidence of acute coronary syndrome and chest pain has subsided. His cardiac biomarkers are negative x3 and EKG is without any diagnostic changes of myocardial ischemia Patient has hypercoagulable state and would benefit from continued systemic anticoagulation Supportive care given ongoing viral pneumonia (2) Pneumonia due to COVID-19 virus Is this a current diagnosis for this admission?: Yes Plan: Treatment per protocol for ongoing viral pneumonia (3) Chronic anticoagulation Is this a current diagnosis for this admission?: Yes Plan: Hematology input Continue systemic anticoagulation - Notes Notes: At the present time his presentation is not suspicious for myocardial ischemia His EKG is nondiagnostic. Myocardial ischemia and his cardiac biomarkers are negative We will follow as needed
--- NOTE | 2020-01-11 14:12 | EKG REPORT ---
SEVERITY:- OTHERWISE NORMAL ECG - SINUS RHYTHM BORDERLINE LEFT AXIS DEVIATION : Confirmed by: Jose Cadena 11-Jan-2020 14:11:46
[2020-01-11 15:09] LABS: CREATINE KINASE MB 0.34 ng/mL (<4.55)
[2020-01-11 15:17] LABS: TROPONIN I < 0.012 ng/mL
--- NOTE | 2020-01-11 17:01 | PDOC PROGRESS REPORT ---
Subjective Subjective:: Patient admitted with highly suspicious symptoms for COVID infection pneumonia. Acute hypoxemic respiratory failure. 01/09/2020 Patient is continued on remdesivir for a total of 5 days. I noted today that the coronavirus task force in [place] is planning to rescind the emergency approval of convalescent plasma and I explained this to the patient and informed him why this might not be a treatment option in the near future. He states he is doing okay today but having intermittent high fevers. His labs have been reviewed and they are stable so far. Influenza test in the ER was negative. Patient has no new complaints today other than high fevers and shortness of breath. 01/10/2020 Remdesivir continues, patient has been tolerating it well. Patient seems to be doing a bit better and is breathing well on room air now. Blood cultures are negative. Once he completes remdesivir 5-day course, if he remains clinically stable, he could potentially be discharged home to continue self quarantine. He has no new complaints today. 01/11/2020 Patient had an episode of electric shock chest pain overnight and support associate ordered chest x-ray EKG and troponins all of which were negative for acute findings. They also consulted cardiology and I had a long discussion with Dr. Downey about the case today. He does not believe there is any cardiac emergency occurring and raised the question of the patient having pleuritis or even a very mild myocarditis as is commonly seen in coronavirus cases. I will discuss the case with Dr. Rivas tomorrow if patient is doing well, he could potentially be discharged home to self quarantine for a total of 14 days assuming he continues to take his full strength anticoagulant Xarelto. Patient is in agreement with this plan if it is feasible. He has no new complaints today. He currently does not have any chest pain. Reason For Visit: SUSPECTED COVID ASSOCIATED PNEUMONIA,ACUTE Physical Exam Vital Signs: Temp Pulse Resp BP Pulse Ox 97.5 F 57 L 20 121/68 93 01/11/20 16:03 01/11/20 16:03 01/11/20 16:03 01/11/20 16:03 01/11/20 16:03 Intake & Output 01/10/20 01/11/20 01/12/20 06:59 06:59 06:59 Intake Total 500 500 729 Output Total 250 Balance 500 250 729 Weight 103.2 kg 101.2 kg General appearance: PRESENT: no acute distress, well-developed, well-nourished Head exam: PRESENT: atraumatic, normocephalic Eye exam: PRESENT: conjunctiva pink Mouth exam: PRESENT: moist Respiratory exam: PRESENT: clear to auscultation nash. ABSENT: rales, rhonchi, wheezes Cardiovascular exam: PRESENT: RRR. ABSENT: diastolic murmur, rubs, systolic murmur GI/Abdominal exam: PRESENT: normal bowel sounds, soft. ABSENT: distended, guarding, mass, organolmegaly, rebound, tenderness Neurological exam: PRESENT: alert, awake, oriented to person, oriented to place, oriented to time, oriented to situation Skin exam: PRESENT: dry, intact, warm Results Laboratory Results: 01/11/20 06:00 01/10/20 04:07 01/11/20 06:00 WBC 7.6 D RBC 4.96 Hgb 14.9 Hct 43.7 MCV 88 MCH 30.1 MCHC 34.2 RDW 14.6 H Plt Count 216 Seg Neutrophils % 86.8 H 01/08/20 01/11/20 01/11/20 09:38 00:40 00:40 Creatine Kinase 33 L CK-MB (CK-2) 0.43 Troponin I < 0.012 < 0.012 01/11/20 01/11/20 01/11/20 06:00 06:00 14:15 Creatine Kinase 28 L 30 L CK-MB (CK-2) 0.37 Troponin I < 0.012 01/11/20 14:15 Creatine Kinase CK-MB (CK-2) 0.34 Troponin I < 0.012 Impressions: Chest X-Ray 01/08/20 09:29 IMPRESSION: Findings consistent with multi lobar pneumonia. Given rounded, peripheral appearance, recommend consideration for atypical etiologies to include viral (COVID) in treatment planning. Assessment and Plan - Diagnosis (1) Pneumonia due to COVID-19 virus Is this a current diagnosis for this admission?: Yes Plan: 5 days of fever/chills/diarrhea/shortness of breath/CONTRERAS/myalgias, already tested positive for coronavirus COVID testing here pending Started remdesivir on admission for 5-day course Contact and respiratory precautions, moved to COVID unit Supplemental oxygen to maintain oxygen saturation greater than or equal to 94% Consider convalescent plasma treatment is a possibility if he worsens, but approval for this treatment is in jeopardy of being discontinued by [place] government Vitamin/supplements Remdesivir course 5-day continues, tolerating it well, possibly can go home to self quarantine after this is completed if he remains clinically stable Seems to be improving, potential for discharge home for self quarantine after severe course completes (2) Acute hypoxemic respiratory failure due to COVID-19 Is this a current diagnosis for this admission?: Yes Plan: Some oxygen to maintain saturation greater than equal to 94% Bronchial hygiene Incentive spirometer Relatively stable thus far Improved, wean oxygen as able (3) HLD (hyperlipidemia) Is this a current diagnosis for this admission?: Yes (4) Factor V Leiden Is this a current diagnosis for this admission?: Yes (5) Chronic anticoagulation Is this a current diagnosis for this admission?: Yes (6) Hypertension Qualifiers: Hypertension type: essential hypertension Qualified Code(s): I10 - Essential (primary) hypertension Is this a current diagnosis for this admission?: Yes - Time Time Spent with patient: 35 or more minutes Medications reviewed and adjusted accordingly: Yes Anticipated Discharge Disposition: Home, Self Care Anticipated Discharge Timeframe: within 48 hours - Inpatient Certification Based on my medical assessment, after consideration of the patient's comorbidities, presenting symptoms, or acuity I expect that the services needed warrant INPATIENT care.: Yes I certify that my determination is in accordance with my understanding of Medicare's requirements for reasonable and necessary INPATIENT services [42 CFR 412.3e].: Yes Medical Necessity: Significant Comorbidiites Make Outpatient Treatment Too Risky, Need Close Monitoring Due to Risk of Patient Decompensation, Need for IV Antibiotics, Risk of Complication if Not Cared For in Hospital, Risk of Diagnosis Which Will Require Inpatient Eval/Care/Monitoring
[2020-01-11] MEDS: ATORVASTATIN CALCIUM 40 MG TABLET PO SCH (21:28)
[2020-01-12] MEDS: NITROGLYCERIN 2% OINTMENT 1 GM PACKET TP SCH ×5 (00:51→23:04)
[2020-01-12] MEDS: HEPARIN SOD (PORCINE) 1,000 UNIT/ML 10 ML VIAL IV PRN (01:25)
[2020-01-12] MEDS: PANTOPRAZOLE SODIUM 20 MG TABLET.DR PO SCH (05:49)
[2020-01-12] MEDS: HEPARIN SODIUM,PORCINE/D5W 25,000 UNIT/250 ML RTUINJ IV PRN (05:50)
[2020-01-12] MEDS: ZINC SULFATE 220 MG CAPSULE PO SCH ×2 (11:23→17:48)
[2020-01-12] MEDS: FLUOXETINE HCL 20 MG CAPSULE PO SCH (11:23)
[2020-01-12] MEDS: REMDESIVIR (EUA) 100 MG in NORMAL SALINE 250 ML IV SCH (11:24)
[2020-01-12] MEDS: LISINOPRIL 10 MG TABLET PO SCH (11:24)
[2020-01-12] MEDS: CHOLECALCIFEROL (D3) 1,000 UNIT (25 MCG) TABLET PO SCH ×2 (11:24→17:48)
[2020-01-12] MEDS: DEXAMETHASONE SOD PHOSPHATE INJ 4 MG/1 ML VIAL IV SCH (11:24)
[2020-01-12] MEDS: ASCORBIC ACID 500 MG TABLET PO SCH ×2 (11:24→17:48)
[2020-01-12] MEDS: DOCUSATE SODIUM 100 MG CAPSULE PO SCH (13:14)
[2020-01-12] MEDS: ATORVASTATIN CALCIUM 40 MG TABLET PO SCH (21:35)
[2020-01-13] MEDS: HEPARIN SODIUM,PORCINE/D5W 25,000 UNIT/250 ML RTUINJ IV PRN (02:15)
[2020-01-13] MEDS: NITROGLYCERIN 2% OINTMENT 1 GM PACKET TP SCH ×3 (05:07→17:51)
[2020-01-13] MEDS: PANTOPRAZOLE SODIUM 20 MG TABLET.DR PO SCH (05:08)
[2020-01-13 06:54] LABS: HEMATOCRIT 45.8 % (37.9-51.0); HEMOGLOBIN 15.3 g/dL (13.5-17.0); MEAN CORPUSCULAR HEMOGLOBIN 29.5 pg (27.0-33.4); MEAN CORPUSCULAR HGB CONC 33.5 g/dL (32.0-36.0); MEAN CORPUSCULAR VOLUME 88 fl (80-97); PLATELET COUNT 284 10^3/uL (150-450); RED BLOOD COUNT 5.19 10^6/uL (4.35-5.55); RED CELL DISTRIBUTION WIDTH 14.7 % (11.5-14.0); WHITE BLOOD COUNT 9.5 10^3/uL (4.0-10.5)
[2020-01-13] MEDS: FLUOXETINE HCL 20 MG CAPSULE PO SCH (09:17)
[2020-01-13] MEDS: ASCORBIC ACID 500 MG TABLET PO SCH ×2 (09:17→17:51)
[2020-01-13] MEDS: CHOLECALCIFEROL (D3) 1,000 UNIT (25 MCG) TABLET PO SCH ×2 (09:17→17:51)
[2020-01-13] MEDS: LISINOPRIL 10 MG TABLET PO SCH (09:17)
[2020-01-13] MEDS: ZINC SULFATE 220 MG CAPSULE PO SCH ×2 (09:17→17:51)
[2020-01-13] MEDS: DEXAMETHASONE SOD PHOSPHATE INJ 4 MG/1 ML VIAL IV SCH (09:17)
[2020-01-13] MEDS: BUTALB/ACETAMINOPHEN/CAFFEINE 1 TAB EACH PO PRN (09:25)
--- NOTE | 2020-01-13 17:32 | XCELERA REPORT ---
[address] [address] Transthoracic Echocardiogram Report Name: DOMINIQUE LEWIS Age: 54 yrs Gender: Male : 1965 Patient Status: Inpatient Patient Location: [address] [place], [place] [id number] Study Date: 01/13/2020 08:36 AM Height: 71 in Weight: 224 lb BSA: 2.2 m2 Procedure: A two-dimensional transthoracic echocardiogram with color flow and Doppler was performed. The study was technically difficult with many images being suboptimal in quality. Reason For Study: CHF, possible viral myocarditis History: CHF, possible viral myocarditis. Ordering Physician: WENDY MENDOZA Performed By: Priscilla Rios Interpretation Summary The left ventricle is normal in size. There is normal left ventricular wall thickness. LV EF is 60% to 65% Left ventricular systolic function is normal. The left ventricular wall motion is normal. Probably no ASD,VSD,or PFO seen. The right atrium is normal. There is no evidence of mitral valve prolapse. There is no vegetation seen on the mitral valve. There is no mitral valve stenosis. There is a trace amount of mitral regurgitation There is no aortic valvular vegetation. There is no aortic valve stenosis No aortic regurgitation is present. There is no tricuspid stenosis. There is a trace amount of tricuspid regurgitation Right ventricular systolic pressure is normal. RVSP is 25 to 30 mm of Hg , with RA mean of 5 to 10. There is no pulmonic valvular stenosis. There is no pulmonic valvular regurgitation. The aortic root is not well visualized but is probably normal size. The inferior vena cava appeared normal and decreased > 50% with respiration (RAP 5-10 mmHg) There is no pericardial effusion. MMode/2D Measurements & Calculations RVDd: 1.8 cm LVIDd: 5.2 cm FS: 29.7 % Ao root diam: 2.3 cm IVSd: 0.98 cm LVIDs: 3.7 cm EDV(Teich): 130.2 ml Ao root area: 4.3 cm2 LVPWd: 1.1 cm ESV(Teich): 56.9 ml EF(Teich): 56.3 % Doppler Measurements & Calculations MV E max adarsh: MV dec slope: Ao V2 max: LV V1 max P.4 cm/sec 429.6 cm/sec2 149.5 cm/sec 4.9 mmHg MV A max adarsh: MV dec time: 0.21 secAo max PG: LV V1 max: 72.5 cm/sec 8.9 mmHg 111.0 cm/sec MV E/A: 1.2 PA V2 max: TR max adarsh: 122.6 cm/sec 223.5 cm/sec PA max P.0 mmHg TR max P.0 mmHg Left Ventricle The left ventricle is normal in size. There is normal left ventricular wall thickness. LV EF is 60% to 65%. Left ventricular systolic function is normal. Doppler measurements suggest normal left ventricular diastolic function. The left ventricular wall motion is normal. There is no thrombus. Probably no ASD,VSD,or PFO seen. Right Ventricle The right ventricle is not well visualized secondary to technical limitations. Atria The right atrium is normal. The left atrial size is normal. Mitral Valve There is no evidence of mitral valve prolapse. There is no vegetation seen on the mitral valve. There is no mitral valve stenosis. There is a trace amount of mitral regurgitation. Aortic Valve There is no aortic valvular vegetation. There is no aortic valve stenosis. No aortic regurgitation is present. Tricuspid Valve There is no tricuspid stenosis. There is a trace amount of tricuspid regurgitation. Right ventricular systolic pressure is normal. RVSP is 25 to 30 mm of Hg , with RA mean of 5 to 10. Pulmonic Valve There is no pulmonic valvular stenosis. There is no pulmonic valvular regurgitation. Great Vessels The aortic root is not well visualized but is probably normal size. The inferior vena cava appeared normal and decreased > 50% with respiration (RAP 5-10 mmHg). Effusions There is no pericardial effusion. : WENDY MENDOZA Lakshmi
[2020-01-13] MEDS: HEPARIN SOD (PORCINE) 1,000 UNIT/ML 10 ML VIAL IV PRN (17:55)
--- NOTE | 2020-01-13 18:05 | PDOC DISCHARGE SUMMARY ---
Impression - Admit/DC Date/PCP Admission Date/Primary Care Provider: 01/08/20 13:34 KRISTEN WARNER Discharge Date: 01/13/20 - Discharge Diagnosis (1) Pneumonia due to COVID-19 virus Is this a current diagnosis for this admission?: Yes (2) Acute hypoxemic respiratory failure due to COVID-19 Is this a current diagnosis for this admission?: Yes (3) HLD (hyperlipidemia) Is this a current diagnosis for this admission?: Yes (4) Factor V Leiden Is this a current diagnosis for this admission?: Yes (5) Chronic anticoagulation Is this a current diagnosis for this admission?: Yes (6) Hypertension Is this a current diagnosis for this admission?: Yes - Additional Information Resuscitation Status: Do Not Resuscitate Discharge Diet: As Tolerated, Regular Discharge Activity: Activity As Tolerated, Balance Activity w/Rest Referrals: KRISTEN WARNER PA-C [Primary Care Provider] - Follow up as needed Prescriptions: Butalb/Acetaminophen/Caffeine [Fioricet (50-325-40 mg) Tablet] 1 tab PO Q6HP PRN #12 each PRN Reason: Home Medications: Rivaroxaban [Xarelto] 20 mg PO DAILY 30 Days #30 tablet 07/03/17 Fluoxetine HCl [Prozac 20 mg Capsule] 40 mg PO DAILY 02/01/19 Omeprazole Magnesium [Prilosec Otc] 20 mg PO DAILY 02/01/19 Atorvastatin Calcium [Lipitor 40 mg Tablet] 40 mg PO QHS 01/08/20 Lisinopril [Prinivil 10 mg Tablet] 10 mg PO DAILY 01/08/20 Ascorbic Acid [Vitamin C 500 mg Tablet] 500 mg PO BID #0 tablet 01/13/20 Butalb/Acetaminophen/Caffeine [Fioricet (50-325-40 mg) Tablet] 1 tab PO Q6HP PRN #12 each 01/13/20 Cholecalciferol (Vitamin D3) [Vitamin D3 1000 Unit Tablet] 1,000 unit PO BID tablet 01/13/20 Zinc Sulfate [Zinc-220 Capsule] 220 mg PO BID capsule 01/13/20 History of Present Illiness History of Present Illness: DOMINIQUE LEWIS is a 54 year old male past medical history significant for factor V Leiden on chronic Xarelto, HTN, HLD who presents with 5-day history of progressive fever/chills/diarrhea/shortness of breath/CONTRERAS/myalgias which he began experiencing after his also became symptomatic 5 days prior to admission. was diagnosed with coronavirus by the health department and patient was concerned that he also developed this disease. Patient came to ED directly from the health department and he was tested for coronavirus here and that test is pending. Patient admitted to the COVID unit and was started on room to severe supplemental oxygen, oncology was consulted for his factor V Leiden in the setting of hypercoagulable state of coronavirus. Dr. Rivas started patient on heparin drip and his Xarelto will be held meantime. Patient will be considered for convalescent plasma if he meets criteria for the study we are currently taking part in. Patient has agreed to receive blood products if they are necessary and potentially beneficial. Hospital Course Hospital Course: Patient admitted with highly suspicious symptoms for COVID infection pneumonia. Acute hypoxemic respiratory failure. 01/09/2020 Patient is continued on remdesivir for a total of 5 days. I noted today that the coronavirus task force in [place] is planning to rescind the emergency approval of convalescent plasma and I explained this to the patient and informed him why this might not be a treatment option in the near future. He states he is doing okay today but having intermittent high fevers. His labs have been reviewed and they are stable so far. Influenza test in the ER was negative. Patient has no new complaints today other than high fevers and shortness of breath. 01/10/2020 Remdesivir continues, patient has been tolerating it well. Patient seems to be doing a bit better and is breathing well on room air now. Blood cultures are negative. Once he completes remdesivir 5-day course, if he remains clinically stable, he could potentially be discharged home to continue self quarantine. He has no new complaints today. 01/11/2020 Patient had an episode of electric shock chest pain overnight and client success director ordered chest x-ray EKG and troponins all of which were negative for acute findings. They also consulted cardiology and I had a long discussion with Dr. Downey about the case today. He does not believe there is any cardiac emergency occurring and raised the question of the patient having pleuritis or even a very mild myocarditis as is commonly seen in coronavirus cases. I will discuss the case with Dr. Rivas tomorrow if patient is doing well, he could potentially be discharged home to self quarantine for a total of 14 days assuming he continues to take his full strength anticoagulant Xarelto. Patient is in agreement with this plan if it is feasible. He has no new complaints today. He currently does not have any chest pain. 01/12/2020 Patient having headaches but these are continuing to lessen in severity and frequency. Completely relieved by Fioricet which he is only needing intermittently. Patient has no shortness of breath and is feeling gradually better overall. He has no other new complaints On day of discharge, course and plans discussed in great detail with the patient and his . Also discussed his echocardiogram results with the engine repair supervisor who stated it was normal. I discussed the patient's anticoagulation with Dr. Rivas and hematology and she stated the patient can safely go home on his usual dose of Xarelto 20 mg daily which he takes at bedtime. I instructed the patient to continue self quarantining at home at least until he is asymptomatic in 14 days away from his initial symptoms. Patient and are in full agreement with the plan going forward. I will give the patient a prescription for a few Fioricet tablets as needed though he does not believe he will need them at this point since his headache has been resolved since last night. The patient understands he must come back to the hospital immediately if he has any worsening respiratory failure or neurologic symptoms. - Diagnosis (1) Pneumonia due to COVID-19 virus Is this a current diagnosis for this admission?: Yes Completed course of REMsevere (2) Acute hypoxemic respiratory failure due to COVID-19 Is this a current diagnosis for this admission?: Yes (3) HLD (hyperlipidemia) Is this a current diagnosis for this admission?: Yes (4) Factor V Leiden Is this a current diagnosis for this admission?: Yes (5) Chronic anticoagulation Is this a current diagnosis for this admission?: Yes (6) Hypertension Qualifiers: Hypertension type: essential hypertension Qualified Code(s): I10 - Essential (primary) hypertension Is this a current diagnosis for this admission?: Yes Physical Exam Vital Signs: Temp Pulse Resp BP Pulse Ox 97.6 F 59 L 18 126/65 H 94 01/13/20 15:24 01/13/20 15:24 01/13/20 15:24 01/13/20 15:24 01/13/20 15:24 Intake & Output 01/12/20 01/13/20 01/14/20 06:59 06:59 06:59 Intake Total 1756 1676 590 Balance 1756 1676 590 Weight 101.6 kg 101.7 kg Exam: General appearance: PRESENT: no acute distress, well-developed, well-nourished, states he feels very well and would like to go home Head exam: PRESENT: atraumatic, normocephalic Eye exam: PRESENT: conjunctiva pink Mouth exam: PRESENT: moist Respiratory exam: PRESENT: clear to auscultation nash. ABSENT: rales, rhonchi, wheezes Cardiovascular exam: PRESENT: RRR. ABSENT: diastolic murmur, rubs, systolic murmur GI/Abdominal exam: PRESENT: normal bowel sounds, soft. ABSENT: distended, guarding, mass, organolmegaly, rebound, tenderness Results Laboratory Results: WBC 9.5 10^3/uL (4.0-10.5) 01/13/20 06:35 RBC 5.19 10^6/uL (4.35-5.55) 01/13/20 06:35 Hgb 15.3 g/dL (13.5-17.0) 01/13/20 06:35 Hct 45.8 % (37.9-51.0) 01/13/20 06:35 MCV 88 fl (80-97) 01/13/20 06:35 MCH 29.5 pg (27.0-33.4) 01/13/20 06:35 MCHC 33.5 g/dL (32.0-36.0) 01/13/20 06:35 RDW 14.7 % (11.5-14.0) H 01/13/20 06:35 Plt Count 284 10^3/uL (150-450) 01/13/20 06:35 Lymph % (Auto) 7.7 % (13-45) L 01/11/20 06:00 [place] % (Auto) 5.4 % (3-13) 01/11/20 06:00 Eos % (Auto) 0.0 % (0-6) 01/11/20 06:00 Baso % (Auto) 0.1 % (0-2) 01/11/20 06:00 Absolute Neuts (auto) 6.6 10^3/uL (1.7-8.2) 01/11/20 06:00 Absolute Lymphs (auto) 0.6 10^3/uL (0.5-4.7) 01/11/20 06:00 Absolute Monos (auto) 0.4 10^3/uL (0.1-1.4) 01/11/20 06:00 Absolute Eos (auto) 0.0 10^3/uL (0.0-0.6) 01/11/20 06:00 Absolute Basos (auto) 0.0 10^3/uL (0.0-0.2) 01/11/20 06:00 Seg Neutrophils % 86.8 % (42-78) H 01/11/20 06:00 PT 19.3 SEC (11.4-15.4) H 01/08/20 09:38 INR 1.61 01/08/20 09:38 APTT 39.6 SEC (23.5-35.8) H 01/13/20 08:24 D-Dimer 0.34 ug/mL (0.00-0.50) 01/08/20 09:38 Carbonic Acid 1.04 mmol/L (1.05-1.35) L 01/08/20 10:28 HCO3/H2CO3 Ratio 20:1 01/08/20 10:28 ABG pH 7.42 (7.35-7.45) 01/08/20 10:28 ABG pCO2 34.4 mmHg (35-45) L 01/08/20 10:28 ABG pO2 75.6 mmHg (80-100) L 01/08/20 10:28 ABG HCO3 21.7 mmol/L (20-24) 01/08/20 10:28 ABG Total CO2 22.7 mmol/L (23-27) L 01/08/20 10:28 ABG O2 Saturation 95.5 % (94-98) 01/08/20 10:28 ABG Base Excess -2.1 mmol/L 01/08/20 10:28 VBG pH 7.36 (7.30-7.42) 01/08/20 09:38 VBG pCO2 45.5 mmHg (35-63) 01/08/20 09:38 VBG HCO3 24.8 mmol/L (20-32) 01/08/20 09:38 VBG Base Excess -1.1 mmol/L 01/08/20 09:38 FiO2 ROOM AIR 01/08/20 10:28 Sodium 138.5 mmol/L (137-145) 01/10/20 04:07 Potassium 4.5 mmol/L (3.6-5.0) 01/10/20 04:07 Chloride 104 mmol/L (98-107) 01/10/20 04:07 Carbon Dioxide 23 mmol/L (22-30) 01/10/20 04:07 Anion Gap 12 (5-19) 01/10/20 04:07 BUN 22 mg/dL (7-20) H 01/10/20 04:07 Creatinine 0.71 mg/dL (0.52-1.25) 01/10/20 04:07 Est GFR ( Amer) > 60 (>60) 01/10/20 04:07 Est GFR (MDRD) Non-Af > 60 (>60) 01/10/20 04:07 Glucose 160 mg/dL (75-110) H 01/10/20 04:07 Lactic Acid 1.0 mmol/L (0.7-2.1) 01/08/20 09:38 Calcium 9.4 mg/dL (8.4-10.2) 01/10/20 04:07 Phosphorus 2.7 mg/dL (2.5-4.5) 01/09/20 06:36 Magnesium 2.2 mg/dL (1.6-2.3) 01/09/20 06:36 Ferritin 621.00 ng/mL (17.9-464.0) H 01/08/20 09:38 Total Bilirubin 0.4 mg/dL (0.2-1.3) 01/08/20 09:38 Direct Bilirubin 0.0 mg/dL (0.0-0.4) 01/08/20 09:38 Neonat Total Bilirubin Not Reportable 01/08/20 09:38 Neonat Direct Bilirubin Not Reportable 01/08/20 09:38 Neonat Indirect Bili Not Reportable 01/08/20 09:38 AST 47 U/L (17-59) 01/08/20 09:38 ALT 49 U/L (<50) 01/08/20 09:38 Alkaline Phosphatase 97 U/L (38-126) 01/08/20 09:38 Lactate Dehydrogenase 348 U/L (120-246) H 01/08/20 09:38 Creatine Kinase 30 U/L (55-170) L 01/11/20 14:15 CK-MB (CK-2) 0.34 ng/mL (<4.55) 01/11/20 14:15 Troponin I < 0.012 ng/mL 01/11/20 14:15 Total Protein 7.9 g/dL (6.3-8.2) 01/08/20 09:38 Albumin 4.2 g/dL (3.5-5.0) 01/08/20 09:38 Lipase 182.5 U/L (23-300) 01/08/20 09:38 Urine Color YELLOW 01/10/20 08:25 Urine Appearance CLEAR 01/10/20 08:25 Urine pH 6.0 (5.0-9.0) 01/10/20 08:25 Ur Specific Pimento 1.026 01/10/20 08:25 Urine Protein NEGATIVE mg/dL (NEGATIVE) 01/10/20 08:25 Urine Glucose (UA) NEGATIVE mg/dL (NEGATIVE) 01/10/20 08:25 Urine Ketones NEGATIVE mg/dL (NEGATIVE) 01/10/20 08:25 Urine Blood NEGATIVE (NEGATIVE) 01/10/20 08:25 Urine Nitrite NEGATIVE (NEGATIVE) 01/10/20 08:25 Urine Bilirubin NEGATIVE (NEGATIVE) 01/10/20 08:25 Urine Urobilinogen NEGATIVE mg/dL (<2.0) 01/10/20 08:25 Ur Leukocyte Esterase NEGATIVE (NEGATIVE) 01/10/20 08:25 Urine WBC (Auto) 1 /HPF 01/10/20 08:25 Urine RBC (Auto) 0 /HPF 01/10/20 08:25 U Hyaline Cast (Auto) 1 /LPF 01/10/20 08:25 Squamous Epi Cells Auto <1 /HPF 01/08/20 09:38 Urine Mucus (Auto) RARE /LPF 01/10/20 08:25 Urine Ascorbic Acid 40 (NEGATIVE) H 01/10/20 08:25 COVID-19 Source NASOPHARYNGEAL 01/08/20 13:44 COVID-19 (LILI) DETECTED H 01/08/20 13:44 Influenza A (Rapid) NEGATIVE (NEGATIVE) 01/08/20 09:38 Influenza B (Rapid) NEGATIVE (NEGATIVE) 01/08/20 09:38 01/08/20 01/11/20 01/11/20 09:38 00:40 06:00 CK-MB (CK-2) 0.43 0.37 Troponin I < 0.012 < 0.012 < 0.012 01/11/20 14:15 CK-MB (CK-2) 0.34 Troponin I < 0.012 Impressions: Chest X-Ray 01/08/20 09:29 IMPRESSION: Findings consistent with multi lobar pneumonia. Given rounded, peripheral appearance, recommend consideration for atypical etiologies to include viral (COVID) in treatment planning. Plan Plan of Treatment: Follow-up with PCP Continue Xarelto home dose Continue vitamin/supplements Self quarantine for total 14 days from the time symptoms started Time Spent: Greater than 30 Minutes Stroke Is this a Stroke Patient?: No Acute Heart Failure - Is this a Heart Failure Patient?: No
[2020-01-13 18:19] VITALS: BP 130/70
== END 2020-01-13 18:55 | disposition home or self-care (01) | DRG 177 ==
LOC: ER 09:05 → EH 13:34 → 3N 15:40
PROVIDERS: ADMIT Internal Medicine; ATTEND Internal Medicine
PROC: XW033E5 Introduction of Remdesivir Anti-infective into Peripheral Vein, Percutaneous Approach, New Technology Group 5 (ICD-10-PCS; principal; 2020-01-08)
DX: U07.1 COVID-19 (principal); J12.89 Other viral pneumonia; J96.01 Acute respiratory failure with hypoxia; D68.51 Activated protein C resistance; R07.89 Other chest pain; E78.5 Hyperlipidemia, unspecified; Z79.01 Long term (current) use of anticoagulants; I10 Essential (primary) hypertension; Z66 Do not resuscitate
CPT/HCPCS: 36415; 71045; 80048; 80053; 81001; 82550; 82553; 82728; 82803; 83605; 83615; 83690; 83735; 84100; 84484; 85025; 85027; 85379; 85610; 85730; 87040; 87635; 87804; 93005; 93010; 93306; 96374; 96375; 99285; C9803; J1100; J1644; J1885; J2270; J2405; J3490; J7050; S0119

== ENCOUNTER → 2020-06-15 | Outpatient (CLI) | payer BC, MEDICARE, OTHER ==
[~2020-06-15] MED LIST changes: +COVID-19 VACCINE (PFIZER)/PF 30 MCG/0.3 ML VIAL IM ONE; +EPINEPHRINE INJ/PF 1 MG/1 ML AMPULE IM PRN; -REGADENOSON INJ 0.4 MG/5 ML DISP.SYRIN IV ONE
== END ==
LOC: EMPHEALTH 15:14
PROVIDERS: ATTEND Internal Medicine
DX: Z23 Encounter for immunization (principal)
CPT/HCPCS: 91300